=== PATIENT | female | born 1940 | race Caucasian/White ===

== ENCOUNTER 2016-07-27 10:25 | Inpatient (IN) ==
[2016-07-27] MEDS ORDERED: IOPAMIDOL 100 ML BOTTLE IJ ONE (10:26)
[2016-07-27] MEDS ORDERED: 0.9 % SODIUM CHLORIDE 1,000 ML IV ONE ×2 (10:41→14:59)
--- NOTE | 2016-07-27 10:53 | Emergency Department Note ---
Nausea/Vomiting/Diarrhea HPI - General Chief complaint: Nausea/Vomiting/Diarrhea Stated complaint: n/v Time Seen by Provider: 07/27/16 10:50 Source: patient, family Mode of arrival: wheelchair Limitations: no limitations - History of Present Illness HPI Narrative: This patient has had nausea vomiting abdominal pain since about 1 AM. Pain is somewhat diffuse in the abdomen. No diarrhea. Not passing much gas. MD complaint: nausea, vomiting, abdominal pain Onset (ago): hour(s) Description of Vomiting: watery Associated Abdominal Pain: Yes Location of pain: diffuse Severity: moderate - Related Data Home Medications Medication Instructions Recorded Confirmed Fluticasone Furoate [Arnuity 1 puff IH DAILY 07/27/16 07/27/16 Ellipta] Losartan/Hydrochlorothiazide 1 each PO DAILY 07/27/16 07/27/16 [Losartan-Hctz 100-12.5 mg Tab] Rosuvastatin Calcium [Crestor] 2.5 mg PO DAILY 07/27/16 07/27/16 Tiotropium Br/Olodaterol HCl 4 gm IH DAILY 07/27/16 07/27/16 [Stiolto Respimat Inhal [place]] metFORMIN [Glucophage] 500 mg PO DAILY 07/27/16 07/27/16 Allergies Allergy/AdvReac Type Severity Reaction Status Date / Time No Known Drug Allergies Allergy Unverified 07/27/16 10:26 Review of Systems Constitutional: Denies: fever Eyes: Denies: eye pain ENT ED: Denies: ear pain Cardiovascular: Denies: chest pain Respiratory: Denies: cough Gastrointestinal: Reports: abdominal pain, nausea, vomiting. Denies: diarrhea Genitourinary: Denies: urgency Musculoskeletal: Denies: back pain Integumentary: Denies: rash Past Medical History - Past Medical History Medical history: Reports: asthma, COPD, hypertension Physical Exam - General Limitations: no limitations General appearance: alert - Head Head exam: atraumatic - Eye Eye exam: Present: normal appearance - ENT ENT exam: normal exam - Neck Neck exam: Present: normal inspection - Chest Chest inspection: Present: normal inspection - Respiratory Respiratory exam: Present: normal lung sounds bilaterally - Cardiovascular Cardiovascular exam: Present: regular rate, normal rhythm, normal heart sounds - Abdominal Exam Abdominal exam: Present: soft, hypoactive bowel sounds. Absent: distention, tenderness Abdominal tenderness: Present: diffuse, moderate - Neurological Exam Neurological exam: Present: alert - Psychiatric Psychiatric exam: Present: normal affect - Skin Skin exam: Present: warm, dry Course Vital Signs Temperature 97.4 F L 07/27/16 10:26 Pulse Rate 70 07/27/16 10:26 Respiratory Rate 20 07/27/16 10:26 Blood Pressure 144/78 07/27/16 10:26 Pulse Oximetry (%) 95 07/27/16 10:26 Temperature 97.0 F L 07/27/16 10:45 Pulse Rate 67 07/27/16 13:34 Respiratory Rate 22 07/27/16 10:45 Blood Pressure 190/99 07/27/16 13:34 Pulse Oximetry (%) 96 07/27/16 13:34 Nausea/Vomiting/Diarrhea - Lab Data Lab results reviewed: Yes I reviewed the patient's lab results. Result diagrams: 07/27/16 10:51 07/27/16 10:51 Lab Results 07/27/16 07/27/16 07/27/16 Range/Units 10:51 10:51 10:51 WBC 18.1 H (4.5-11.0) K/mcL RBC 5.06 (4.00-5.20) M/mcL Hgb 14.6 (12.0-15.0) g/dL Hct 46.0 (36.0-48.0) % MCV 91.0 (80.0-100.0) fL MCH 28.9 (26.0-34.0) pg MCHC 31.7 (31.0-36.0) g/dL RDW 15.2 H (11.5-14.5) % Plt Count 230 (140-440) K/mcL MPV 9.3 (7.4-10.4) fL Gran % 94.1 H (38.0-78.0) % Lymph % (Auto) 2.5 L (15.5-49.0) % [place] % (Auto) 2.1 (1.0-9.0) % Eos % (Auto) 1.3 (0.0-7.0) % Baso % (Auto) 0 (0.0-2.0) % Gran # 17.1 H (1.8-8.0) K/mcL Lymph # 0.5 L (1.5-4.8) K/mcL [place] # 0.4 (0.1-0.9) K/mcL Eos # 0.2 (0.0-0.7) K/mcL Baso # 0 (0.0-0.3) K/mcL Sodium 139 (133-145) mmol/L Potassium 4.2 (3.3-5.1) mmol/L Chloride 96 (96-108) mmol/L Carbon Dioxide 27 (22-30) mmol/L Anion Gap 16.0 (8-16) BUN 20 (8-23) mg/dl Creatinine 0.8 (0.6-1.1) mg/dl GFR Calculation 73 Glucose 256 H (70-105) mg/dL Calcium 9.5 (8.6-10.4) mg/dl Total Bilirubin 0.2 (0.0-1.0) mg/dL AST 16 (0-37) U/l ALT 17 (0-40) U/l Alkaline Phosphatase 101 (39-117) U/L Total Protein 7.5 (5.9-8.4) gm/dL Albumin 4.4 (3.2-5.2) gm/dL Globulin 3.1 (2.2-3.7) gm/dL Albumin/Globulin Ratio 1.4 (1.0-2.3) Lipase 4450 H (7-60) U/L Urine Color Urine Appearance Urine pH (5.0-9.0) Ur Specific [place] (1.000-1.035) Urine Protein (NEG) mg/dL Urine Glucose (UA) (NEG) mg/dL Urine Ketones (NEG) mg/dL Urine Occult Blood (<0.03) mg/dL Urine Nitrate (NEG) Urine Bilirubin (NEG) mg/dL Urine Urobilinogen (NEG) mg/dL Ur Leukocyte Esterase (NEG) /uL Urine RBC (0-1) /hpf Urine WBC (0-4) /hpf Ur Squamous Epith Cells (0-4) /hpf Urine Bacteria (0) /hpf Hyaline Casts (0-2) /lpf Urine Mucus (0) /hpf Ur Culture Indicated? 07/27/16 Range/Units 11:45 WBC (4.5-11.0) K/mcL RBC (4.00-5.20) M/mcL Hgb (12.0-15.0) g/dL Hct (36.0-48.0) % MCV (80.0-100.0) fL MCH (26.0-34.0) pg MCHC (31.0-36.0) g/dL RDW (11.5-14.5) % Plt Count (140-440) K/mcL MPV (7.4-10.4) fL Gran % (38.0-78.0) % Lymph % (Auto) (15.5-49.0) % [place] % (Auto) (1.0-9.0) % Eos % (Auto) (0.0-7.0) % Baso % (Auto) (0.0-2.0) % Gran # (1.8-8.0) K/mcL Lymph # (1.5-4.8) K/mcL [place] # (0.1-0.9) K/mcL Eos # (0.0-0.7) K/mcL Baso # (0.0-0.3) K/mcL Sodium (133-145) mmol/L Potassium (3.3-5.1) mmol/L Chloride (96-108) mmol/L Carbon Dioxide (22-30) mmol/L Anion Gap (8-16) BUN (8-23) mg/dl Creatinine (0.6-1.1) mg/dl GFR Calculation Glucose (70-105) mg/dL Calcium (8.6-10.4) mg/dl Total Bilirubin (0.0-1.0) mg/dL AST (0-37) U/l ALT (0-40) U/l Alkaline Phosphatase (39-117) U/L Total Protein (5.9-8.4) gm/dL Albumin (3.2-5.2) gm/dL Globulin (2.2-3.7) gm/dL Albumin/Globulin Ratio (1.0-2.3) Lipase (7-60) U/L Urine Color Yellow Urine Appearance Hazy Urine pH 6.0 (5.0-9.0) Ur Specific [place] 1.020 (1.000-1.035) Urine Protein 30 A (NEG) mg/dL Urine Glucose (UA) >=500 A (NEG) mg/dL Urine Ketones 5/tr A (NEG) mg/dL Urine Occult Blood 0.03 A (<0.03) mg/dL Urine Nitrate Neg (NEG) Urine Bilirubin Neg (NEG) mg/dL Urine Urobilinogen Neg (NEG) mg/dL Ur Leukocyte Esterase Neg (NEG) /uL Urine RBC 4 H (0-1) /hpf Urine WBC 2 (0-4) /hpf Ur Squamous Epith Cells 8 H (0-4) /hpf Urine Bacteria Mod A (0) /hpf Hyaline Casts 1 (0-2) /lpf Urine Mucus Many A (0) /hpf Ur Culture Indicated? No Disposition Clinical Impression: Pancreatitis Disposition: Xfer As Inpt ([facility]) Condition: Good Referrals: Rai Calvo MD [Primary Care Provider] - Time of Disposition: 13:39
[2016-07-27] MEDS ORDERED: ONDANSETRON 4 MG/2 ML VIAL IV ONE (10:54)
[2016-07-27] MEDS: HYDROmorphone 2 MG/ML SYRINGE IV PRN ×7 (11:03→23:41)
[2016-07-27 11:31] LABS: Basophils # (Auto) 0 K/mcL (0.0-0.3); Basophils % (Auto) 0 % (0.0-2.0); Eosinophils # (Auto) 0.2 K/mcL (0.0-0.7); Eosinophils % (Auto) 1.3 % (0.0-7.0); Granulocytes % (Auto) 94.1 % (38.0-78.0); Lymphocytes # (Auto) 0.5 K/mcL (1.5-4.8); Lymphocytes % (Auto) 2.5 % (15.5-49.0); Mean Corpuscular HGB Conc 31.7 g/dL (31.0-36.0); Mean Corpuscular Hemoglobin 28.9 pg (26.0-34.0); Monocytes # (Auto) 0.4 K/mcL (0.1-0.9); Monocytes % (Auto) 2.1 % (1.0-9.0); Platelet Count 230 K/mcL (140-440); RBC 5.06 M/mcL (4.00-5.20); Red Cell Distribution Width 15.2 % (11.5-14.5)
[2016-07-27 12:02] LABS: ALT/SGPT 17 U/l (0-40); Albumin 4.4 gm/dL (3.2-5.2); Albumin/Globulin Ratio 1.4 (1.0-2.3); Alkaline Phosphatase 101 U/L (39-117); Blood Urea Nitrogen 20 mg/dl (8-23)
[2016-07-27 12:27] LABS: Appearance,Urine HAZY; Bacteria,Urine MOD /hpf (0); Bilirubin,Urine NEG (NEG); Color,Urine YELLOW; Glucose,Urine (UA) >=500 mg/dL (NEG); Leukocyte Esterase,Urine NEG /uL (NEG); Mucus,Urine MANY /hpf (0); Nitrate,Urine NEG (NEG); Protein,Urine 30 mg/dL (NEG); Urine Blood 0.03 mg/dL (<0.03); Urine Hyaline Cast 1 /lpf (0-2); Urine RBC 4 /hpf (0-1); Urine Squamous Epithelial Cell 8 /hpf (0-4); Urine WBC 2 /hpf (0-4); Urobilinogen,Urine NEG (NEG)
[2016-07-27] MEDS ORDERED: PROMETHAZINE 25 MG/ML VIAL IM ONE (12:45)
[2016-07-27] MEDS ORDERED: PROCHLORPERAZINE 10 MG/2 ML VIAL IV ONE (12:49)
[2016-07-27] MEDS ORDERED: POTASSIUM CHLORIDE 40 MEQ in DEXTROSE 5% IN WATER 500 ML IV PRN (14:36)
[2016-07-27] MEDS ORDERED: HYDROmorphone 2 MG/ML SYRINGE IV PRN (14:36)
[2016-07-27] MEDS ORDERED: traZODone HCL 50 MG TABLET PO PRN (14:36)
[2016-07-27] MEDS ORDERED: IMIPENEM/CILASTATIN SODIUM 1,000 MG in 0.9 % SODIUM CHLORIDE 250 ML IV SCH (14:36)
[2016-07-27] MEDS ORDERED: MAGNESIUM SULFATE 2 GM/50 ML BAG IV PRN (14:36)
[2016-07-27] MEDS ORDERED: ACETAMINOPHEN 325 MG TABLET PO PRN (14:36)
[2016-07-27] MEDS ORDERED: 0.9 % SODIUM CHLORIDE 1,000 ML IV SCH (14:36)
--- NOTE | 2016-07-27 14:48 | Cat Scan Report ---
CLINICAL INFORMATION: Reason for Exam:pancreatitis, normal LFT's alk phos. COMPARISON: None. TECHNIQUE: Following injection of intravenous contrast the patient was scanned during the portal venous phase from the diaphragm through the symphysis pubis. Sagittal and coronal reformats were created.. FINDINGS: There are several bands of discoid atelectasis in both lower lobes. The liver is normal in size but there is fatty infiltration. Spleen is normal in size and homogeneous. There is diffuse inflammation throughout the pancreas. There is stranding of the adjacent fat. The inflammation Peritoneum extends into the root of the mesentery and into the left and right anterior perirenal spaces. No abscess or pseudocyst are present. Pancreatic duct is nondilated and there are no calcifications within the pancreas. The stomach is distended with a large amount of fluid. There is a cyst in the upper portion left kidney measuring 1.3 cm. The kidneys are otherwise normal. The adrenals are normal. There are scattered plaques along the wall of the aorta and iliac arteries. No abnormality seen in the uterus and ovaries are bladder. There is a 2 cm cyst in left ovary. IMPRESSION: Acute pancreatitis The ER was called with results Interpreted and Authenticated by: Yimi Munguia 07/27/16
[2016-07-27] MEDS: ONDANSETRON 4 MG/2 ML VIAL IV PRN ×2 (15:22→20:33)
--- NOTE | 2016-07-27 15:45 | History and Physical Report ---
DATE OF ADMISSION: 07/27/2016 DATE OF ADMISSION: 07/27/2016. REASON FOR ADMISSION: Abdominal pain, nausea. HISTORY OF CHIEF COMPLAINT: The patient is a 75-year-old with known history of diabetes, hypertension along with reactive airway disease who comes to [facility] emergency room with progressive nausea and vomiting along with epigastric abdominal pain that started last night. The patient denies any changes in medication or diet except for recent initiation of metformin for her diabetes approximately a month ago. She denies alcoholism. She denies recent excessive fatty food. She has associated low grade fever along with chills but denies diarrhea, dysuria, bloody stool. Since this morning, she has not been able to eat anything due to intense nausea and felt miserable and subsequently evaluated in the ER where initial workup was significant for a lipase at 4400. Hospitalist Service was consulted. At the time of examination, the patient is fairly distressed, anxious. She was able to provide some of the history. REVIEW OF SYSTEMS: Ten-point review of system was performed and negative except the ones discussed above. PAST MEDICAL HISTORY: 1. Hypertension. 2. Hyperlipidemia. 3. Reactive airway disease. 4. Diabetes mellitus type 2. ALLERGIES: NONE SIGNIFICANT. MEDICATIONS: Metformin 500. Tiotropium. Olodaterol hydrochloride, Respimat, 4 grams inhaled daily. Rosuvastatin 2.5. Losartan/hydrochlorothiazide 1 tab daily. Fluticasone inhaled daily. SOCIAL HISTORY: The patient is to her , Jv, lives in . FULL CODE STATUS. PRIMARY CARE PHYSICIAN: Rai Calvo MD/Javid Velasco MD. FAMILY HISTORY: Significant for mother with obesity, but no history of pancreatitis. PHYSICAL EXAMINATION: GENERAL: The patient is morbidly obese. BMI 37. Height 5 feet 6 inches. VITAL SIGNS: Blood pressure 132/79, respiratory rate 18, temperature 98, pulse 99, sats 96% on 2 liters of oxygen. HEENT: Pupils symmetric. Oral cavity dry. No ear or nose discharge. Head normocephalic and atraumatic. NECK: No lymphadenopathy. HEART: S1, S2, regular rate and rhythm. No murmur. CHEST: Clear to auscultation bilaterally. ABDOMEN: Soft, tender in the epigastric area, but no flank discoloration or periumbilical bruising. LOWER EXTREMITIES: No cyanosis or clubbing. No joint swelling. SKIN: No suspicious lesions. PSYCHIATRIC: Anxious, lethargic, in distress, but no agitation. NEUROLOGIC: Moving all four extremities. LABS AND IMAGING: CT abdomen: Acute pancreatitis. White count 18,000, hemoglobin 14.6, platelets 230, neutrophils 94 percent. Sodium 139, potassium 4.2, creatinine 0.8, BUN 20. LFTs unremarkable. Lipase 4450. UA unremarkable. ASSESSMENT AND PLAN: A 75-year-old admitted with severe pancreatitis. 1. Acute severe pancreatitis. Low [place]'s, however, CHICKEN RANCH score at 15 signifying high risk mortality. The patient will be admitted as inpatient, start a conservative management including nothing by mouth, aggressive crystalloids along with analgesics, antiemetics. Continue close hemodynamic monitoring. 2. Systemic inflammatory response syndrome secondary to acute severe pancreatitis with white count over 18,000. Continue close monitoring. 3. History of hypertension. Hold antihypertensives. 4. History of diabetes mellitus type 2. Continue prandial insulin. 5. Reactive airway disease. Continue bronchodilators. PLAN FOR TODAY: 1. Admit as inpatient. 2. Aggressive crystalloids, antiemetics, and analgesics. 3. Right upper quadrant ultrasound if elevated LFTs. 4. Preexisting medical condition management per guidelines. AA:fredi Job ID: [id number] Doc ID: [id number] Wu Napoles MD
[2016-07-27 15:57] LABS: C-Reactive Protein 2.1 mg/dl (0.0-0.8)
[2016-07-27] MEDS: 0.9 % SODIUM CHLORIDE 1,000 ML IV SCH (16:03)
[2016-07-27] MEDS: IMIPENEM/CILASTATIN SODIUM 500 MG in 0.9 % SODIUM CHLORIDE 100 ML IV SCH ×2 (16:03→20:29)
[2016-07-27] MEDS: 0.9 % SODIUM CHLORIDE 10 ML SYRINGE IV SCH (20:29)
[2016-07-27] MEDS: DOCUSATE SODIUM 100 MG CAPSULE PO SCH (20:29)
[2016-07-27] MEDS: SENNOSIDES/DOCUSATE SODIUM 1 TAB TABLET PO SCH (20:29)
[2016-07-27] MEDS: HEPARIN 5,000 UNIT/ML VIAL SQ SCH (20:32)
[2016-07-27] MEDS: ACETAMINOPHEN 1,000 MG/100 ML BOTTLE IV PRN (23:10)
[2016-07-28] MEDS: IMIPENEM/CILASTATIN SODIUM 500 MG in 0.9 % SODIUM CHLORIDE 100 ML IV SCH ×2 (00:37→06:36)
[2016-07-28] MEDS: HYDROmorphone 2 MG/ML SYRINGE IV PRN ×6 (03:24→21:41)
[2016-07-28] MEDS: 0.9 % SODIUM CHLORIDE 1,000 ML IV SCH ×3 (03:24→15:08)
[2016-07-28] MEDS: ONDANSETRON 4 MG/2 ML VIAL IV PRN ×5 (03:30→19:30)
[2016-07-28] MEDS: 0.9 % SODIUM CHLORIDE 10 ML SYRINGE IV SCH ×3 (05:42→20:17)
[2016-07-28 06:59] LABS: Basophils # (Auto) 0 K/mcL (0.0-0.3); Basophils % (Auto) 0 % (0.0-2.0); Eosinophils # (Auto) 0 K/mcL (0.0-0.7); Eosinophils % (Auto) 0 % (0.0-7.0); Granulocytes % (Auto) 95.9 % (38.0-78.0); Lymphocytes # (Auto) 0.6 K/mcL (1.5-4.8); Lymphocytes % (Auto) 2.4 % (15.5-49.0); Mean Cell Volume 91.5 fL (80.0-100.0); Mean Corpuscular HGB Conc 31.7 g/dL (31.0-36.0); Monocytes # (Auto) 0.4 K/mcL (0.1-0.9); Monocytes % (Auto) 1.7 % (1.0-9.0); Platelet Count 253 K/mcL (140-440); RBC 4.98 M/mcL (4.00-5.20); Red Cell Distribution Width 15.4 % (11.5-14.5)
[2016-07-28 07:14] LABS: ALT/SGPT 12 U/l (0-40); Albumin 3.5 gm/dL (3.2-5.2); Albumin/Globulin Ratio 1.3 (1.0-2.3); Alkaline Phosphatase 67 U/L (39-117); Bilirubin,Direct < 0.2 mg/dL (0.0-0.3); Blood Urea Nitrogen 20 mg/dl (8-23); C-Reactive Protein 17.8 mg/dl (0.0-0.8); Gamma Glutamyl Transpeptidase 24 U/L (5-36); Magnesium 1.2 mg/dL (1.6-2.5); Phosphorous 2.3 mg/dL (2.7-4.5); Uric Acid 4.5 mg/dL (2.5-8.0)
[2016-07-28] MEDS: MULTIVIT,THER IRON,CA,FA & MIN 1 TABLET PO SCH (07:37)
[2016-07-28] MEDS: DOCUSATE SODIUM 100 MG CAPSULE PO SCH ×2 (07:37→20:16)
[2016-07-28] MEDS: PANTOPRAZOLE 40 MG VIAL IV SCH (07:37)
[2016-07-28] MEDS: Fluticasone Furoate [Arnuity Ellipta] Inhaler INH SCH (07:43)
[2016-07-28] MEDS: ACETAMINOPHEN 1,000 MG/100 ML BOTTLE IV PRN ×2 (07:57→22:05)
[2016-07-28] MEDS ORDERED: hydrALAZINE 20 MG/ML VIAL IV PRN (08:11)
[2016-07-28] MEDS: HEPARIN 5,000 UNIT/ML VIAL SQ SCH ×2 (08:28→21:21)
[2016-07-28] MEDS ORDERED: Tiotropium Br/Olodaterol Hcl [Stiolto Respimat] Inhaler INH SCH (09:00)
[2016-07-28] MEDS ORDERED: 0.9 % SODIUM CHLORIDE 1,000 ML IV ONE (09:03)
[2016-07-28] MEDS: PROMETHAZINE 25 MG/ML VIAL IV PRN (09:57)
--- NOTE | 2016-07-28 10:36 | Internal Med Progress Note ---
Medical - PN: Subj Patient information: Note initiated : 07/28/16 at 10:31 am Service Date, if different from initiated Date: [] Patient: Olinda Farris 75 y/o F admitted on 07/27/16 for n/v. Chief Complaint: [] Interval history: 3/- patient admitted with acute pancreatitis. Unclear etiology.History of alcoholism. CT no evidence of CBD dilation or cholelithiasis. patient olmesartan and statin which may be implicated in pancreatitis however has been on it for a while. home meds on hold. initial CRP 2.2. Lipase 4800. White count 18,000. Significant abdominal pain requiring IV opioids. Continue NPO/ antiemetics crystalloids. Admit to medical floor. [place] score 12 mandating inpatient hospitalization. Low Jessica score/CT severity index for acute pancreatitis. Started on Primaxin. await Procalcitonin 3/5- worsening leukocytosis at 26,000 with bandemia. CRP is 17.8. Continue daily serial trending. Enteral tube feeding to start in 24 hours. Discussed with patient and family. Agreeable for [place]. continue crystalloids bolus and maintained 125-150 cc an hour due to extensive third spacing and pancreatic Inflammation. repeat CT scan 72 hours for interval change. patient now needing 3 L oxygen. High-risk development of ARDS . Underlying severe pancreatitis. dC Primaxin in light of normal pro-calcitonin levels. Continue close monitoring. Persistent sirs with tachycardia and tachypnea. continue electrolyte replacement including magnesium and phosphorus. also discussed possible transfer to tertiary Center if clinical deterioration noted. family is appreciative of care. - Constitutional Vitals: Vital Signs Temp Pulse Resp BP Pulse Ox 98.1 F 94 H 16 119/77 94 07/28/16 08:42 07/28/16 04:00 07/28/16 08:42 07/28/16 08:42 07/28/16 08:42 Period Temp Pulse Resp BP Sys/Johnson Pulse Ox Last 24 Hr 98.0 F-98.9 F 18-103 16-20 114-173/72-97 92-94 Intake and Output 07/27/16 07/28/16 07/28/16 21:59 05:59 13:59 Intake Total 1200 / 1200 1200 / 1200 100 / 100 Output Total 100 / 100 300 / 300 300 / 300 Balance 1100 / 1100 900 / 900 -200 / -200 Weight 231 lb Intake & Output: Intake & Output 07/27/16 07/28/16 07/28/16 21:59 05:59 13:59 Intake Total 1200 / 1200 1200 / 1200 100 / 100 Output Total 100 / 100 300 / 300 300 / 300 Balance 1100 / 1100 900 / 900 -200 / -200 Weight 231 lb Intake: IV 1200 / 1200 1200 / 1200 100 / 100 Sodium Chloride 0.9% 1, 1000 / 1000 1000 / 1000 000 ml @ 125 mls/hr IV . Q8H ROLAN Rx#:[id number] Sodium Chloride 0.9% 100 200 / 200 100 / 100 ml @ 100 mls/hr IV Q6 ROLAN with Primaxin 500 mg Rx# :[id number] Output: Void Amount 100 / 100 300 / 300 300 / 300 Other: # Voids 1 General appearance: moderate distress (abdominal pain), obese Exam: alert oriented distended abdomen sluggish bowel sounds Nonlabored breathing anxious Medical - PN: Obj Da - Labs CBC & Chem 7: 07/28/16 05:50 07/28/16 05:50 Labs: Abnormal Lab Results 07/28/16 07/28/16 07/27/16 05:50 05:50 14:49 WBC 26.2 H RDW 15.4 H Gran % 95.9 H Lymph % (Auto) 2.4 L Gran # 25.1 H Lymph # 0.6 L Carbon Dioxide 21 L Glucose 181 H Calcium 6.5 L Phosphorus 2.3 L Magnesium 1.2 L Lactate Dehydrogenase 350 H C-Reactive Protein 17.8 H 2.1 H Meds: Medications Acetaminophen (Tylenol) 650 mg PO Q4-6HP PRN PRN Reason: PAIN/FEVER > 101 Docusate Sodium (Colace) 100 mg PO BID [facility] Last Admin: 07/28/16 07:37 Dose: Not Given Heparin Sodium (Porcine) (Heparin) 5,000 unit SQ Q12 ROLAN Last Admin: 07/28/16 08:28 Dose: 5,000 unit Hydralazine HCl (Apresoline) 10 mg IV Q4-6HP PRN PRN Reason: Hypertension Hydromorphone HCl (Dilaudid) 0.5 - 1 mg IV Q2HP PRN PRN Reason: Pain Last Admin: 07/28/16 05:38 Dose: 0.5 mg Potassium Chloride 40 meq/ (Dextrose) 520 mls @ 130 mls/hr IV UD PRN PRN Reason: K+ = or < 3.5 Magnesium Sulfate (Magnesium Sulfate) 2 gm in 50 mls @ 50 mls/hr IV UD PRN PRN Reason: MG = or < 1.7 Sodium Chloride (Sodium Chloride 0.9%) 1,000 mls @ 125 mls/hr IV .Q8H [facility] Stop: 07/28/16 14:35 Last Admin: 07/28/16 03:24 Dose: 125 mls/hr Acetaminophen (Ofirmev) 1,000 mg in 100 mls @ 200 mls/hr IV Q6HP PRN PRN Reason: PAIN/FEVER > 101 Last Infusion: 07/28/16 09:54 Dose: Infused Imipenem/Cilastatin Sodium 500 (mg/ Sodium Chloride) 100 mls @ 100 mls/hr IV Q6 [facility] Last Admin: 07/28/16 06:36 Dose: 100 mls/hr Iron Carb/Multivit/Assistant Strength Coach/Folic Acid (Multivitamin W/Minerals) 1 tab PO DAILY [facility] Last Admin: 07/28/16 07:37 Dose: Not Given Ondansetron HCl (Zofran) 4 mg IV Q4-6HP PRN PRN Reason: Nausea And Vomiting Last Admin: 07/28/16 08:28 Dose: 4 mg Pantoprazole Sodium (Protonix) 40 mg IV QAMAC [facility] Last Admin: 07/28/16 07:37 Dose: 40 mg Tiotropium Br/Olodaterol Hcl [ Stiolto Respimat] Inhaler 1 dose INH DAILY [facility] Last Admin: 07/28/16 07:44 Dose: 1 dose Fluticasone Furoate [Arnuity Ellipta] Inhaler 1 dose INH DAILY [facility] Last Admin: 07/28/16 07:43 Dose: 1 dose Promethazine HCl (Phenergan) 6.25 - 12.5 mg IV Q4HP PRN PRN Reason: Nausea And Vomiting Last Admin: 07/28/16 09:57 Dose: 6.25 mg Senna/Docusate Sodium (Senna Plus Tablet) 1 tab PO HS [facility] Last Admin: 07/27/16 20:29 Dose: Not Given Sodium Chloride (Saline Flush) 10 ml IV Q8 [facility] Last Admin: 07/28/16 05:42 Dose: Not Given Trazodone HCl (Desyrel) 50 mg PO HSP PRN PRN Reason: Insomnia Medical - PN: A/P - Time Spent With Patient Total time spent is greater than 50% in coordination of care (as documented) at patient's floor/unit and/or counseling patient: 25 - 35 minutes (1) Acute pancreatitis without infection or necrosis Status: Acute Assessment and plan: * Acute pancreatitis possible [id number] serial CRP trending. Low CT severity index on admission. unclear etiology. Possible drug-induced from ARB/statin. Home meds on hold. Conservative management on crystalloids/ antiemetics/analgesics. Initiate enteral feeding in 24 hours * systemic response syndrome with white count 26,000 and bandemia-Secondary to acute severe pancreatitis. pro-calcitonin level less than 0.1 ndicative against infectious process. DC imipenem * Abdominal pain managed on opioids * History of hypertension use as needed hydralazine- hold ARB/statin(possible drug-induced pancreatitis) * low magnesium and phosphorus-continue replacement * DVT prophylaxis on heparin Plan * DC antibiotics * aggressive crystalloids antiemetics and analgesics * nitiate enteral feeding in a.m. * aggressive pain management * chest imaging * as needed hydralazine * Hold home meds in light of possible drug-induced pancreatitis Current Visit: Yes Medical - PN: Qual - VTE Deep Vein Thrombosis/Pulmonary Embolism Present on Admission: No
[2016-07-28] MEDS ORDERED: POTASSIUM PHOSPHATE 40 MEQ in DEXTROSE 5% IN WATER 500 ML IV ONE (11:00)
[2016-07-28] MEDS ORDERED: LORazepam 2 MG/ML VIAL IV PRN (15:05)
[2016-07-28] MEDS: Tiotropium Br/Olodaterol Hcl [Stiolto Respimat] Inhaler INH SCH ×2 (18:52→20:17)
[2016-07-28] MEDS: SENNOSIDES/DOCUSATE SODIUM 1 TAB TABLET PO SCH (20:16)
[2016-07-29] MEDS: 0.9 % SODIUM CHLORIDE 1,000 ML IV SCH (00:40)
[2016-07-29] MEDS: ONDANSETRON 4 MG/2 ML VIAL IV PRN ×4 (02:16→17:11)
[2016-07-29] MEDS: HYDROmorphone 2 MG/ML SYRINGE IV PRN ×6 (02:43→22:34)
[2016-07-29] MEDS: 0.9 % SODIUM CHLORIDE 10 ML SYRINGE IV SCH ×4 (04:49→20:38)
[2016-07-29] MEDS: PROMETHAZINE 25 MG/ML VIAL IV PRN ×3 (04:57→20:36)
[2016-07-29 06:53] LABS: Mean Cell Volume 91.1 fL (80.0-100.0); Mean Corpuscular HGB Conc 32.3 g/dL (31.0-36.0); Mean Corpuscular Hemoglobin 29.5 pg (26.0-34.0); Platelet Count 195 K/mcL (140-440); RBC 4.24 M/mcL (4.00-5.20); Red Cell Distribution Width 15.6 % (11.5-14.5)
[2016-07-29] MEDS: PANTOPRAZOLE 40 MG VIAL IV SCH (07:12)
[2016-07-29] MEDS: ACETAMINOPHEN 1,000 MG/100 ML BOTTLE IV PRN (07:23)
[2016-07-29 07:43] LABS: ALT/SGPT 11 U/l (0-40); Albumin 2.7 gm/dL (3.2-5.2); Alkaline Phosphatase 107 U/L (39-117); Bilirubin,Direct 0.2 mg/dL (0.0-0.3); Blood Urea Nitrogen 33 mg/dl (8-23); Gamma Glutamyl Transpeptidase 22 U/L (5-36); Magnesium 1.8 mg/dL (1.6-2.5); Phosphorous 3.2 mg/dL (2.7-4.5); Uric Acid 5.6 mg/dL (2.5-8.0)
[2016-07-29 08:51] LABS: Band Neutrophils % 42 % (0-10); Lymphocytes % 3 % (15-49); Platelet Estimate NORMAL (NORMAL); RBC Morphology NORMAL (NORMAL); Segmented Neutrophils % 55 % (38-78)
[2016-07-29] MEDS ORDERED: hydrALAZINE 20 MG/ML VIAL IV PRN (09:05)
[2016-07-29] MEDS ORDERED: ACETAMINOPHEN 325 MG TABLET PO PRN (09:05)
[2016-07-29] MEDS ORDERED: MAGNESIUM SULFATE 2 GM/50 ML BAG IV PRN (09:05)
[2016-07-29] MEDS ORDERED: POTASSIUM CHLORIDE 40 MEQ in DEXTROSE 5% IN WATER 500 ML IV PRN (09:05)
[2016-07-29] MEDS ORDERED: CALCIUM GLUCONATE 4.65 MEQ/10 ML VIAL IV ONE (09:05)
--- NOTE | 2016-07-29 09:25 | XRay Report ---
CLINICAL INFORMATION: Hypoxia COMPARISON: 07/16/2012 FINDINGS: The heart is borderline enlarged. Mediastinum and pulmonary vessels are normal. Mall infiltrate or atelectasis has developed in the left base underlying scarring. The remaining lungs are clear. No definite effusion. IMPRESSION: Small atelectasis or infiltrate developing in the left base with underlying chronic scarring. Interpreted and Authenticated by: Lee Sharma 07/29/16
[2016-07-29] MEDS ORDERED: CALCIUM GLUCONATE 4.65 MEQ in DEXTROSE 5% IN WATER 50 ML IV ONE ×2 (09:30→16:08)
[2016-07-29] MEDS: Fluticasone Furoate [Arnuity Ellipta] Inhaler INH SCH (10:00)
[2016-07-29] MEDS: Tiotropium Br/Olodaterol Hcl [Stiolto Respimat] Inhaler INH SCH ×2 (10:00→20:37)
[2016-07-29 10:20] LABS: Ionized Calcium 0.72 mmol/L (1.16-1.32)
[2016-07-29 10:37] LABS: Parathyroid Hormone Intact 366.1 pg/ml (15-65)
[2016-07-29 10:38] LABS: Amylase 1269 U/L (28-100); Blood Urea Nitrogen 36 mg/dl (8-23); HDL Cholesterol 20 mg/dl (>40); LDL Cholesterol,Calculated 60 mg/dl (SEE CHART)
[2016-07-29 10:42] LABS: Lipase 620 U/L (7-60)
[2016-07-29 10:49] LABS: Vitamin D 25 Hydroxy 8.94 ng/mL (>=30)
[2016-07-29] MEDS: DEXTROSE 5%-1/2NS W/40MEQ KCL 1,000 ML IV SCH (11:00)
[2016-07-29] MEDS: DOCUSATE SODIUM 100 MG CAPSULE PO SCH ×2 (11:28→20:37)
[2016-07-29] MEDS: MULTIVIT,THER IRON,CA,FA & MIN 1 TABLET PO SCH (11:28)
[2016-07-29 11:47] LABS: Creatinine,Urine Random 126.3 mg/dl
[2016-07-29 11:54] LABS: Appearance,Urine CLOUDY; Bacteria,Urine 0 /hpf (0); Bilirubin,Urine NEG (NEG); Color,Urine AMBER; Glucose,Urine (UA) >=500 mg/dL (NEG); Leukocyte Esterase,Urine NEG /uL (NEG); Mucus,Urine FEW /hpf (0); Nitrate,Urine NEG (NEG); Protein,Urine 30 mg/dL (NEG); Specific Gravity,Urine 1.018 (1.000-1.035); Urine Amorphous Crystals FEW /hpf (0); Urine Blood NEG mg/dL (<0.03); Urine Granular Cast 1 /lpf (0); Urine Hyaline Cast 1 /lpf (0-2); Urine RBC 1 /hpf (0-1); Urine Squamous Epithelial Cell 0 /hpf (0-4); Urine WBC 1 /hpf (0-4); Urobilinogen,Urine NEG (NEG)
--- NOTE | 2016-07-29 12:28 | Internal Med Progress Note ---
Medical - PN: Subj Patient information: Note initiated : 07/29/16 at 12:25 pm Service Date, if different from initiated Date: [] Patient: Olinda Farris 75 y/o F admitted on 07/27/16 for N/V, Severe Pancreatitis. Chief Complaint: [] Interval history: 3/4- patient admitted with acute pancreatitis. Unclear etiology.History of alcoholism. CT no evidence of CBD dilation or cholelithiasis. patient olmesartan and statin which may be implicated in pancreatitis however has been on it for a while. home meds on hold. initial CRP 2.2. Lipase 4800. White count 18,000. Significant abdominal pain requiring IV opioids. Continue NPO/ antiemetics crystalloids. Admit to medical floor. [place] score 12 mandating inpatient hospitalization. Low [place] score/CT severity index for acute pancreatitis. Started on Primaxin. await Procalcitonin 3/5- worsening leukocytosis at 26,000 with bandemia. CRP is 17.8. Continue daily serial trending. Enteral tube feeding to start in 24 hours. Discussed with patient and family. Agreeable for Dobbhoff. continue crystalloids bolus and maintained 125-150 cc an hour due to extensive third spacing and pancreatic Inflammation. repeat CT scan 72 hours for interval change. patient now needing 3 L oxygen. High-risk development of ARDS . Underlying severe pancreatitis. dC Primaxin in light of normal pro-calcitonin levels. Continue close monitoring. Persistent sirs with tachycardia and tachypnea. continue electrolyte replacement including magnesium and phosphorus. also discussed possible transfer to tertiary Center if clinical deterioration noted. family is appreciative of care. 3/6- Patients still has abdominal pain, no bm passed, no gas, feels that abdomen is distended. No nausea or vomiting. pain control is reported as adequate. WBC stable, CRP is increasing, Ca low, mg ok, patients has new onset renal failure. Ransons score at 48 hrs is 6 indicating 40% mortality. Discussed same with the patient and advised patient needs closer monitoring in PCU status. She is still requiring oxygen and X ray shows possibile pna vs atelectasis. Given neg procalcitonin recently hold off on antibiotics. Discussed with te family that if patient condition worsens will have to x toi to higher center. Pertinent ROS: Denies headache, dizziness Denies chest pain, palpitations Denies cough or shortness of breath present abdominal pain, denies nausea or vomiting. Additional PMFSH (Level 3 Only): h/o HLD, intermittent compliance with medication no h/o renal disease. - Constitutional Vitals: Vital Signs Temp Pulse Resp BP Pulse Ox 97.5 F L 97 H 20 109/63 98 07/29/16 12:00 07/29/16 07:26 07/29/16 12:00 07/29/16 12:00 07/29/16 12:00 Period Temp Pulse Resp BP Sys/Johnson Pulse Ox Last 24 Hr 97.5 F-98.7 F 94-104 18-24 109-121/63-74 92-98 Intake and Output 07/28/16 07/29/16 07/29/16 21:59 05:59 13:59 Intake Total 1000 / 1000 310 / 310 Output Total 200 / 200 75 / 75 60 / 60 Balance -200 / -200 925 / 925 250 / 250 Weight 232 lb 8 oz Intake & Output: Intake & Output 07/28/16 07/29/16 07/29/16 21:59 05:59 13:59 Intake Total 1000 / 1000 310 / 310 Output Total 200 / 200 75 / 75 60 / 60 Balance -200 / -200 925 / 925 250 / 250 Weight 232 lb 8 oz Intake: IV 1000 / 1000 310 / 310 Sodium Chloride 0.9% 1, 1000 / 1000 000 ml @ 125 mls/hr IV . Q8H [facility] Rx#:[id number] Dextrose 5% in Water 50 60 / 60 ml @ 100 mls/hr IV ONCE ONE with Calcium Gluconate 4.65 Meq Rx#: [id number] Output: Void Amount 200 / 200 75 / 75 60 / 60 Exam: Constitutional; Afebrile, cooperative, alert, not in distress. Eyes- No icterus, Pupils equal, reactive, No periorbital swelling Ears- Ext ear normal, hearing normal to conversation. Neck- Midline trachea, supple Respiratory system: Air Entry equal on both sides, No crackles or wheezing, no rhonchi. CVS- Rate rhythm regular, S1,S2 heard, no gallop, no rub. Abdomen- distended, diffusely tender predominantly in the epigastric region, decreased BS, SHEAR SETTER- AOOx3, moving all extremities, no focal deficit noted. Medical - PN: Obj Da - Labs CBC & Chem 7: 07/29/16 05:00 07/29/16 09:16 Labs: Abnormal Lab Results 07/29/16 07/29/16 07/29/16 10:57 10:57 09:16 WBC RDW Gran % Lymph % (Auto) Gran # Lymph # Band Neutrophils % Lymphocytes % Carbon Dioxide BUN Creatinine Glucose Calcium Ionized Calcium Julien Phosphorus Magnesium Lactate Dehydrogenase C-Reactive Protein Total Protein Albumin HDL Cholesterol Amylase Lipase 25-OH Vitamin D Total 8.94 L PTH Intact 366.1 H Urine Protein 30 A Urine Glucose (UA) >=500 A Amorphous Crystals Few A Granular Casts 1 H U [place] Prot/Creat Ratio 0.65 H 07/29/16 07/29/16 07/29/16 09:16 05:00 05:00 WBC 23.1 H RDW 15.6 H Gran % Lymph % (Auto) Gran # Lymph # Band Neutrophils % 42 H Lymphocytes % 3 L Carbon Dioxide 20 L 19 L BUN 36 H 33 H Creatinine 2.2 H 2.3 H Glucose 170 H 163 H Calcium 5.5 L* Ionized Calcium Julien 0.72 L* Phosphorus Magnesium Lactate Dehydrogenase 661 H C-Reactive Protein 41.0 H Total Protein 5.5 L Albumin 2.7 L HDL Cholesterol 20 L Amylase 1269 H Lipase 620 H 25-OH Vitamin D Total PTH Intact Urine Protein Urine Glucose (UA) Amorphous Crystals Granular Casts U [place] Prot/Creat Ratio 07/28/16 07/28/16 07/27/16 05:50 05:50 14:49 WBC 26.2 H RDW 15.4 H Gran % 95.9 H Lymph % (Auto) 2.4 L Gran # 25.1 H Lymph # 0.6 L Band Neutrophils % Lymphocytes % Carbon Dioxide 21 L BUN Creatinine Glucose 181 H Calcium 6.5 L Ionized Calcium Julien Phosphorus 2.3 L Magnesium 1.2 L Lactate Dehydrogenase 350 H C-Reactive Protein 17.8 H 2.1 H Total Protein Albumin HDL Cholesterol Amylase Lipase 25-OH Vitamin D Total PTH Intact Urine Protein Urine Glucose (UA) Amorphous Crystals Granular Casts U [place] Prot/Creat Ratio Meds: Medications Acetaminophen (Tylenol) 650 mg PO Q4-6HP PRN PRN Reason: PAIN/FEVER > 101 Docusate Sodium (Colace) 100 mg PO BID [facility] Heparin Sodium (Porcine) (Heparin) 5,000 unit SQ Q12 [facility] Hydralazine HCl (Apresoline) 10 mg IV Q8HP PRN PRN Reason: Hypertension Hydromorphone HCl (Dilaudid) 0.5 - 1 mg IV Q2HP PRN PRN Reason: Pain Last Admin: 07/29/16 10:01 Dose: 1 mg Potassium Chloride 40 meq/ (Dextrose) 520 mls @ 130 mls/hr IV UD PRN PRN Reason: K+ = or < 3.5 Magnesium Sulfate (Magnesium Sulfate) 2 gm in 50 mls @ 50 mls/hr IV UD PRN PRN Reason: MG = or < 1.7 Acetaminophen (Ofirmev) 1,000 mg in 100 mls @ 200 mls/hr IV Q6HP PRN PRN Reason: PAIN/FEVER > 101 Potassium Chloride/Dextrose/Sod Cl (Dextrose 5%-1/2ns W/40meq Kcl) 1,000 mls @ 75 mls/hr IV .[id number] [facility] Last Admin: 07/29/16 11:00 Dose: 75 mls/hr Iron Carb/Multivit/[place]/Folic Acid (Multivitamin W/Minerals) 1 tab PO DAILY [facility] Lorazepam (Ativan) 0.5 mg IV Q6HP PRN PRN Reason: Spasms Ondansetron HCl (Zofran) 4 mg IV Q4-6HP PRN PRN Reason: Nausea And Vomiting Last Admin: 07/29/16 10:00 Dose: 4 mg Pantoprazole Sodium (Protonix) 40 mg IV QAMAC [facility] Fluticasone Furoate [Arnuity Ellipta] Inhaler 1 dose INH DAILY [facility] Tiotropium Br/Olodaterol Hcl [ Stiolto Respimat] Inhaler 1 dose INH BID [facility] Promethazine HCl (Phenergan) 6.25 - 12.5 mg IV Q4HP PRN PRN Reason: Nausea And Vomiting Senna/Docusate Sodium (Senna Plus Tablet) 1 tab PO HS [facility] Sodium Chloride (Saline Flush) 10 ml IV Q8 [facility] Last Admin: 07/29/16 09:10 Dose: 10 ml Trazodone HCl (Desyrel) 50 mg PO HSP PRN PRN Reason: Insomnia Medical - PN: A/P - Time Spent With Patient Total time spent is greater than 50% in coordination of care (as documented) at patient's floor/unit and/or counseling patient: (1) Pancreatitis Status: Acute Current Visit: Yes - Narrative A/P Narrative: Severe pancreatitis- NPO status, IV fluids, pain management, etiology uncertain , lipid panel neg, non alcoholic, no abnl lft and CT neg for gall stones, its possible this is medication related, likely hctz vs losartan. patient Jessica score at 48 hrs is 6, indicating 40% mortality, discussed same with patient and family, presently close monitoring. get USG abdomen Acute renal failure- Creat jumped up to 2.3 this AM, on IV fluids, recent use of NSAIDs/ IV contrast for CT noted. The patient also has severe pancreatitis. therefore this is multifactorial in etiology , still making urine, Continue IV fluids, Iqbal to monitor urine output closely, USG abdomen, Acute hypoxic resp failure- On 3 L oxygen, high risk for ARDS< monitor closely. SIRS- Due to pancreatitis, imipenum stopped due to normal / low pro calcitonin. Acute hypocalcemia- mg ok, eleanor gluconate given PTH high, vit d level low, unable to tolerate po at this time, will need high doses of Vit D once able to tolerate po well. Monitor on tele, recheck labs this afternoon. Pre DM- On metformin, hold for now. HTN, hold bp meds for now. Diet - NPO for now, plan to get X ray guided Naso jejunal tube to start feeding if possible. DVT hep sq. condition critical Prognosis guarded. Medical - PN: Qual - VTE Deep Vein Thrombosis/Pulmonary Embolism Present on Admission: No
--- NOTE | 2016-07-29 14:35 | Ultrasound Report ---
CLINICAL INFORMATION: Pancreatitis and renal failure COMPARISON: Abdomen and pelvic CT from three weeks prior: 07/27/2016. FINDINGS: Liver is mildly enlarged with a vertical dimension 21 cm at mid clavicular line. It is is hyperechoic compatible with fatty change - also seen on CT. no focal hepatic lesions. Gallbladder and bile ducts are normal in - the CBD is 4 mm. The spleen and IVC are unremarkable. Pancreas and aorta cannot be identified due to body habitus and bowel gas. Both kidneys are normal in size, but mildly hyperechoic compatible with medical renal disease. The right is 13 x 6 cm and the left is 12 x 5 cm. No focal renal lesions. Small of ascites appreciated. IMPRESSION: 1. Hyperechoic kidneys compatible with medical renal disease. 2. Mild hepatomegaly with diffuse hyperechogenicity compatible with mild fatty change also noted a recent CT 3. Small amount of ascites 4. Due to patient body habitus and bowel gas, the aorta and pancreas cannot be visualized Interpreted and Authenticated by: Lee Sharma 07/29/16
[2016-07-29] MEDS ORDERED: DIATRIZOATE MEGLU/DIATRIZO SOD 30 ML BOTTLE PO ONE (14:37)
[2016-07-29] MEDS ORDERED: LIDOCAINE JEL 2% 1 TUBE 30GM TOPICAL ONE (14:37)
--- NOTE | 2016-07-29 15:06 | XRay Report ---
CLINICAL INFORMATION: Feeding tube placement under fluoroscopy TECHNIQUE: The left ureter was topically anesthetized with viscous lidocaine and Cetacaine spray was used to topically anesthetized oropharynx. The tube was placed through the left nares, esophagus and stomach through the pyloric channel into the descending duodenum. Less than 10 cc of water-soluble contrast was injected through the tube confirming the location of the tube tip. Patient tolerated procedure well. The tube was secured with tape to the nose. IMPRESSION: Successful placement of nasoenteric feeding tube tip of the descending duodenum. The tube could not be advanced further but should be adequate for use. Interpreted and Authenticated by: Lee Sharma 07/29/16
[2016-07-29 15:57] LABS: ALT/SGPT 10 U/l (0-40); Albumin 2.7 gm/dL (3.2-5.2); Albumin/Globulin Ratio 0.9 (1.0-2.3); Alkaline Phosphatase 55 U/L (39-117); Bilirubin,Direct 0.2 mg/dL (0.0-0.3); Blood Urea Nitrogen 37 mg/dl (8-23); Gamma Glutamyl Transpeptidase 20 U/L (5-36); Magnesium 1.7 mg/dL (1.6-2.5); Phosphorous 3.1 mg/dL (2.7-4.5); Uric Acid 5.9 mg/dL (2.5-8.0)
[2016-07-29] MEDS ORDERED: MAGNESIUM SULFATE 2 GM/50 ML BAG IV ONE (16:08)
--- NOTE | 2016-07-29 18:41 | XRay Report ---
CLINICAL INFORMATION: Abdominal pain COMPARISON: None. FINDINGS: The tube tip overlies the descending duodenum. Stool gas pattern is unremarkable. No gross free air, soft tissue mass or pathologic calcification. Minor atelectasis noted in the left base IMPRESSION: No acute disease. Feeding tube tip overlies the descending duodenum. Interpreted and Authenticated by: Lee Sharma 07/29/16
[2016-07-29] MEDS: HEPARIN 5,000 UNIT/ML VIAL SQ SCH (20:27)
[2016-07-29] MEDS: SENNOSIDES/DOCUSATE SODIUM 1 TAB TABLET PO SCH (20:37)
[2016-07-29] MEDS ORDERED: traZODone HCL 50 MG TABLET PO PRN (21:00)
[2016-07-29] MEDS: LORazepam 2 MG/ML VIAL IV PRN (22:35)
[2016-07-30] MEDS: DEXTROSE 5%-1/2NS W/40MEQ KCL 1,000 ML IV SCH ×3 (02:09→17:38)
[2016-07-30] MEDS: HYDROmorphone 2 MG/ML SYRINGE IV PRN ×6 (03:36→19:40)
[2016-07-30] MEDS: LORazepam 2 MG/ML VIAL IV PRN ×2 (03:36→19:39)
[2016-07-30 05:33] LABS: Mean Cell Volume 90.5 fL (80.0-100.0); Mean Corpuscular HGB Conc 32.3 g/dL (31.0-36.0); Mean Corpuscular Hemoglobin 29.2 pg (26.0-34.0); Platelet Count 180 K/mcL (140-440); RBC 3.81 M/mcL (4.00-5.20); Red Cell Distribution Width 15.4 % (11.5-14.5)
[2016-07-30 06:07] LABS: ALT/SGPT 10 U/l (0-40); Albumin 2.6 gm/dL (3.2-5.2); Albumin/Globulin Ratio 1.4 (1.0-2.3); Alkaline Phosphatase 64 U/L (39-117); Bilirubin,Direct 0.3 mg/dL (0.0-0.3); Blood Urea Nitrogen 35 mg/dl (8-23); Gamma Glutamyl Transpeptidase 19 U/L (5-36); Magnesium 2.2 mg/dL (1.6-2.5); Phosphorous 2.6 mg/dL (2.7-4.5)
[2016-07-30 06:27] LABS: C-Reactive Protein 42.8 mg/dl (0.0-0.8)
[2016-07-30] MEDS: HEPARIN 5,000 UNIT/ML VIAL SQ SCH ×3 (06:35→22:34)
[2016-07-30] MEDS ORDERED: CALCIUM GLUCONATE 4.65 MEQ/10 ML VIAL IV ONE (06:59)
[2016-07-30] MEDS: 0.9 % SODIUM CHLORIDE 10 ML SYRINGE IV SCH ×3 (07:05→22:10)
[2016-07-30 07:29] LABS: Band Neutrophils % 26 % (0-10); Lymphocytes % 3 % (15-49); Monocytes % (Manual) 6 % (1-9); Platelet Estimate NORMAL (NORMAL); RBC Morphology ABNORM (NORMAL); Segmented Neutrophils % 65 % (38-78); Toxic Granulation 1+ (NONE SEEN)
[2016-07-30] MEDS ORDERED: CALCIUM GLUCONATE 9.3 MEQ in DEXTROSE 5% IN WATER 50 ML IV ONE (08:00)
[2016-07-30] MEDS: PANTOPRAZOLE 40 MG VIAL IV SCH (08:39)
[2016-07-30] MEDS: DOCUSATE SODIUM 100 MG CAPSULE PO SCH ×2 (08:52→22:10)
[2016-07-30] MEDS: MULTIVIT,THER IRON,CA,FA & MIN 1 TABLET PO SCH (08:52)
[2016-07-30] MEDS ORDERED: BISACODYL 10 MG SUPP.RECT PR ONE (09:18)
[2016-07-30] MEDS: Tiotropium Br/Olodaterol Hcl [Stiolto Respimat] Inhaler INH SCH ×2 (09:25→22:36)
[2016-07-30] MEDS: Fluticasone Furoate [Arnuity Ellipta] Inhaler INH SCH (09:25)
--- NOTE | 2016-07-30 12:53 | Internal Med Progress Note ---
Medical - PN: Subj Patient information: Note initiated : 07/30/16 at 12:48 pm Service Date, if different from initiated Date: [] Patient: Olinda Farris 75 y/o F admitted on 07/27/16 for N/V, Severe Pancreatitis. Chief Complaint: [] Interval history: 3/4- patient admitted with acute pancreatitis. Unclear etiology.History of alcoholism. CT no evidence of CBD dilation or cholelithiasis. patient olmesartan and statin which may be implicated in pancreatitis however has been on it for a while. home meds on hold. initial CRP 2.2. Lipase 4800. White count 18,000. Significant abdominal pain requiring IV opioids. Continue NPO/ antiemetics crystalloids. Admit to medical floor. [place] score 12 mandating inpatient hospitalization. Low [place] score/CT severity index for acute pancreatitis. Started on Primaxin. await Procalcitonin 3/5- worsening leukocytosis at 26,000 with bandemia. CRP is 17.8. Continue daily serial trending. Enteral tube feeding to start in 24 hours. Discussed with patient and family. Agreeable for Dobbhoff. continue crystalloids bolus and maintained 125-150 cc an hour due to extensive third spacing and pancreatic Inflammation. repeat CT scan 72 hours for interval change. patient now needing 3 L oxygen. High-risk development of ARDS . Underlying severe pancreatitis. dC Primaxin in light of normal pro-calcitonin levels. Continue close monitoring. Persistent sirs with tachycardia and tachypnea. continue electrolyte replacement including magnesium and phosphorus. also discussed possible transfer to tertiary Center if clinical deterioration noted. family is appreciative of care. 3/6- Patients still has abdominal pain, no bm passed, no gas, feels that abdomen is distended. No nausea or vomiting. pain control is reported as adequate. WBC stable, CRP is increasing, Ca low, mg ok, patients has new onset renal failure. Ransons score at 48 hrs is 6 indicating 40% mortality. Discussed same with the patient and advised patient needs closer monitoring in PCU status. She is still requiring oxygen and X ray shows possibile pna vs atelectasis. Given neg procalcitonin recently hold off on antibiotics. Discussed with te family that if patient condition worsens will have to x toi to higher center. 3/7 pt seen examined, in chair comfortable, denies any acute overnight events, no BM but did pass some gas USG reviewed, X ray abdomen reviewed (neg for obstruction) , Abdomen still more distended today than yesterday as per nursing staff. Trial of rectal suppository CT abdomen and pelvis without contrast today, discussed same with radiologist, can use water to help delinate bowels to help evaluate pancreas. Feeding tube placed, but given no BM yest, will hold off on starting same. Hypocalcemia still present, s/p calcium supplements Will give some VIt D solution via Feeding tube today to help build reserves. CRP still high, wbc improving, creat improving, pt making urine, renal failure seems pre renal Pertinent ROS: Denies headache, dizziness Denies chest pain, palpitations Denies cough or shortness of breath present abdominal pain,denies nausea or vomiting. present constipation. - Constitutional Vitals: Vital Signs Temp Pulse Resp BP Pulse Ox 98.9 F 91 H 20 122/72 95 07/30/16 12:00 07/30/16 11:00 07/30/16 12:00 07/30/16 12:00 07/30/16 12:00 Period Temp Pulse Resp BP Sys/Johnson Pulse Ox Last 24 Hr 97.8 F-98.9 F 91-110 16-20 91-144/59-119 91-98 Intake and Output 07/29/16 07/30/16 07/30/16 21:59 05:59 13:59 Intake Total 95 / 95 1000 / 1000 Output Total 300 / 300 650 / 650 Balance -205 / -205 350 / 350 Weight 238 lb 12.8 oz Intake & Output: Intake & Output 07/29/16 07/30/16 07/30/16 21:59 05:59 13:59 Intake Total 95 / 95 1000 / 1000 Output Total 300 / 300 650 / 650 Balance -205 / -205 350 / 350 Weight 238 lb 12.8 oz Intake: IV 95 / 95 1000 / 1000 Dextrose 5%-1/2Ns W/40Meq 1000 / 1000 KCl 1,000 ml @ 75 mls/hr IV .[id number] [facility] Rx#: [id number] Output: Urine Catheter Amount 300 / 300 650 / 650 Other: # Bowel Movements 0 Exam: Constitutional; Afebrile, cooperative, alert, not in distress. Eyes- No icterus, Pupils equal, reactive, No periorbital swelling Ears- Ext ear normal, hearing normal to conversation. Neck- Midline trachea, supple Respiratory system: Air Entry equal on both sides, No crackles or wheezing, no rhonchi. CVS- Rate rhythm regular, S1,S2 heard, no gallop, no rub. Abdomen- distended, tender in epigastric region. QUALITY ENG- AOOx3, moving all extremities, no focal deficit noted. Medical - PN: Obj Da - Labs CBC & Chem 7: 07/30/16 04:00 07/30/16 04:00 Labs: Abnormal Lab Results 07/30/16 07/30/16 07/29/16 04:00 04:00 15:05 WBC 15.3 H RBC 3.81 L Hgb 11.1 L Hct 34.5 L RDW 15.4 H Gran % Lymph % (Auto) Gran # Lymph # Band Neutrophils % 26 H Lymphocytes % 3 L Nucleated RBCs 1 H WBC Morphology Abnorm A Vacuolated Neuts 1+ A Toxic Granulation 1+ A RBC Morphology Abnorm A Carbon Dioxide 21 L 19 L BUN 35 H 37 H Creatinine 1.5 H 2.0 H Glucose 165 H 156 H Calcium 5.5 L* 5.6 L* Ionized Calcium Julien Phosphorus 2.6 L Magnesium Lactate Dehydrogenase 701 H 645 H C-Reactive Protein 42.8 H Total Protein 4.5 L 5.6 L Albumin 2.6 L 2.7 L Globulin 1.9 L Albumin/Globulin Ratio 0.9 L HDL Cholesterol Amylase Lipase 25-OH Vitamin D Total PTH Intact Urine Protein Urine Glucose (UA) Amorphous Crystals Granular Casts U [place] Prot/Creat Ratio 07/29/16 07/29/16 07/29/16 10:57 10:57 09:16 WBC RBC Hgb Hct RDW Gran % Lymph % (Auto) Gran # Lymph # Band Neutrophils % Lymphocytes % Nucleated RBCs WBC Morphology Vacuolated Neuts Toxic Granulation RBC Morphology Carbon Dioxide BUN Creatinine Glucose Calcium Ionized Calcium Julien Phosphorus Magnesium Lactate Dehydrogenase C-Reactive Protein Total Protein Albumin Globulin Albumin/Globulin Ratio HDL Cholesterol Amylase Lipase 25-OH Vitamin D Total 8.94 L PTH Intact 366.1 H Urine Protein 30 A Urine Glucose (UA) >=500 A Amorphous Crystals Few A Granular Casts 1 H U [place] Prot/Creat Ratio 0.65 H 07/29/16 07/29/16 07/29/16 09:16 05:00 05:00 WBC 23.1 H RBC Hgb Hct RDW 15.6 H Gran % Lymph % (Auto) Gran # Lymph # Band Neutrophils % 42 H Lymphocytes % 3 L Nucleated RBCs WBC Morphology Vacuolated Neuts Toxic Granulation RBC Morphology Carbon Dioxide 20 L 19 L BUN 36 H 33 H Creatinine 2.2 H 2.3 H Glucose 170 H 163 H Calcium 5.5 L* Ionized Calcium Julien 0.72 L* Phosphorus Magnesium Lactate Dehydrogenase 661 H C-Reactive Protein 41.0 H Total Protein 5.5 L Albumin 2.7 L Globulin Albumin/Globulin Ratio HDL Cholesterol 20 L Amylase 1269 H Lipase 620 H 25-OH Vitamin D Total PTH Intact Urine Protein Urine Glucose (UA) Amorphous Crystals Granular Casts U [place] Prot/Creat Ratio 07/28/16 07/28/16 07/27/16 05:50 05:50 14:49 WBC 26.2 H RBC Hgb Hct RDW 15.4 H Gran % 95.9 H Lymph % (Auto) 2.4 L Gran # 25.1 H Lymph # 0.6 L Band Neutrophils % Lymphocytes % Nucleated RBCs WBC Morphology Vacuolated Neuts Toxic Granulation RBC Morphology Carbon Dioxide 21 L BUN Creatinine Glucose 181 H Calcium 6.5 L Ionized Calcium Julien Phosphorus 2.3 L Magnesium 1.2 L Lactate Dehydrogenase 350 H C-Reactive Protein 17.8 H 2.1 H Total Protein Albumin Globulin Albumin/Globulin Ratio HDL Cholesterol Amylase Lipase 25-OH Vitamin D Total PTH Intact Urine Protein Urine Glucose (UA) Amorphous Crystals Granular Casts U [place] Prot/Creat Ratio Meds: Medications Acetaminophen (Tylenol) 650 mg PO Q4-6HP PRN PRN Reason: PAIN/FEVER > 101 Docusate Sodium (Colace) 100 mg PO BID ON LICENSE OF [facility] Last Admin: 07/30/16 08:52 Dose: Not Given Heparin Sodium (Porcine) (Heparin) 5,000 unit SQ Q12 [facility] Last Admin: 07/30/16 08:42 Dose: 5,000 unit Hydralazine HCl (Apresoline) 10 mg IV Q8HP PRN PRN Reason: Hypertension Hydromorphone HCl (Dilaudid) 0.5 - 1 mg IV Q2HP PRN PRN Reason: Pain Last Admin: 07/30/16 11:49 Dose: 0.5 mg Potassium Chloride 40 meq/ (Dextrose) 520 mls @ 130 mls/hr IV UD PRN PRN Reason: K+ = or < 3.5 Magnesium Sulfate (Magnesium Sulfate) 2 gm in 50 mls @ 50 mls/hr IV UD PRN PRN Reason: MG = or < 1.7 Acetaminophen (Ofirmev) 1,000 mg in 100 mls @ 200 mls/hr IV Q6HP PRN PRN Reason: PAIN/FEVER > 101 Potassium Chloride/Dextrose/Sod Cl (Dextrose 5%-1/2ns W/40meq Kcl) 1,000 mls @ 75 mls/hr IV .[id number] ON LICENSE OF [facility] Last Admin: 07/30/16 02:09 Dose: 75 mls/hr Iron Carb/Multivit/[place]/Folic Acid (Multivitamin W/Minerals) 1 tab PO DAILY ON LICENSE OF [facility] Last Admin: 07/30/16 08:52 Dose: Not Given Lorazepam (Ativan) 0.5 mg IV Q6HP PRN PRN Reason: Spasms Last Admin: 07/30/16 03:36 Dose: 0.5 mg Ondansetron HCl (Zofran) 4 mg IV Q4-6HP PRN PRN Reason: Nausea And Vomiting Last Admin: 07/29/16 17:11 Dose: 4 mg Pantoprazole Sodium (Protonix) 40 mg IV QAMAC ON LICENSE OF [facility] Last Admin: 07/30/16 08:39 Dose: 40 mg Fluticasone Furoate [Arnuity Ellipta] Inhaler 1 dose INH DAILY ON LICENSE OF [facility] Last Admin: 07/30/16 09:25 Dose: 1 dose Tiotropium Br/Olodaterol Hcl [ Stiolto Respimat] Inhaler 1 dose INH BID ON LICENSE OF [facility] Last Admin: 07/30/16 09:25 Dose: 1 dose Promethazine HCl (Phenergan) 6.25 - 12.5 mg IV Q4HP PRN PRN Reason: Nausea And Vomiting Last Admin: 07/29/16 20:36 Dose: 6.25 mg Senna/Docusate Sodium (Senna Plus Tablet) 1 tab PO HS ON LICENSE OF [facility] Last Admin: 07/29/16 20:37 Dose: Not Given Sodium Chloride (Saline Flush) 10 ml IV Q8 ON LICENSE OF [facility] Last Admin: 07/30/16 07:05 Dose: Not Given Trazodone HCl (Desyrel) 50 mg PO HSP PRN PRN Reason: Insomnia Medical - PN: A/P - Time Spent With Patient Total time spent is greater than 50% in coordination of care (as documented) at patient's floor/unit and/or counseling patient: (1) Pancreatitis Status: Acute Current Visit: Yes - Narrative A/P Narrative: severe pancreatitis Ileus Severe hypocalcemia Vit D deficiency SIRS Acute hy poxic resp failure Hold feeding for now CT abdomen and pelvis Vit d supplementation (try to cut capsule and give solution via feeding tube, discussed same with pharmacy) IV calcium supplementation Rectal suppository continue oxygen supplementation. Medical - PN: Qual - VTE Deep Vein Thrombosis/Pulmonary Embolism Present on Admission: No
[2016-07-30] MEDS ORDERED: ERGOCALCIFEROL (VITAMIN D2) 50,000 UNIT CAPSULE PO ONE (13:30)
--- NOTE | 2016-07-30 14:14 | Cat Scan Report ---
CLINICAL INFORMATION: Follow-up pancreatitis COMPARISON: Contrast enhanced abdomen and pelvic CT performed three days prior - 07/27/2016. TECHNIQUE: IV contrast was withheld due to mild renal insufficiency. 1000 cc of water was administered for enteric contrast. 2.5 mm helical slices were obtained from the mid heart through the subtrochanteric regions. Following reconstruction, 2.5 mm sagittal, coronal and axial reformatted images were processed and reviewed at bone, lung and soft tissue windows. FINDINGS: Lung bases show small bilateral pleural effusions and atelectasis in the medial flash posterior basilar segment of the left lower lobe - new from previous study. The heart is minimally enlarged and there is calcific plaque visualized coronary arteries. Images should the abdomen show the noncontrasted liver, gallbladder and bile ducts, both kidneys, adrenal glands, spleen and aorta to be normal in size, configuration and attenuation without focal lesion. There is mild diffuse enlargement of the pancreas with edema/inflammation in the peripancreatic fat planes with modest amount of fluid in the lesser sac extending along the left paracolic gutter. This shows a moderate increase from the previous study. There is no evidence of abscess or pseudocyst formation. No gross evidence of pancreatic duct dilatation. There is no free air or adenopathy. Stomach, small large bowel are normal. Feeding tube tip is in the lumen of the transverse duodenum in satisfactory position. Images should the pelvis show uterus is anteflexed and slightly enlarged - 9.2 x 4 cm. There is a 6 mm calcified subserosal fibroid in the mid uterine segment. Urinary bladder is collapsed. Bone windows show degenerative changes and mild chronic bilateral sacroiliitis with partial ankylosis across the SI joints. IMPRESSION: 1. Moderate worsening in diffuse acute pancreatitis with increased fluid within the peripancreatic fat planes, lesser sac and paracolic gutters. No evidence of abscess or pseudocyst or other complication. 2. Small bilateral pleural effusions and atelectasis in the medial/posterior segment of the left lower lobe - new 3. Feeding tube in satisfactory position - transverse duodenum. 4. Mild uterine enlargement - stable Interpreted and Authenticated by: Lee Sharma 07/30/16
[2016-07-30] MEDS: ACETAMINOPHEN 1,000 MG/100 ML BOTTLE IV PRN (14:21)
[2016-07-30 15:06] LABS: ALT/SGPT 10 U/l (0-40); Albumin 2.8 gm/dL (3.2-5.2); Albumin/Globulin Ratio 1.3 (1.0-2.3); Alkaline Phosphatase 64 U/L (39-117); Bilirubin,Direct 0.3 mg/dL (0.0-0.3); Blood Urea Nitrogen 29 mg/dl (8-23); Gamma Glutamyl Transpeptidase 20 U/L (5-36); Magnesium 2.4 mg/dL (1.6-2.5); Phosphorous 2.3 mg/dL (2.7-4.5); Uric Acid 5.4 mg/dL (2.5-8.0)
[2016-07-30] MEDS: SENNOSIDES/DOCUSATE SODIUM 1 TAB TABLET PO SCH (22:10)
[2016-07-31] MEDS: HYDROmorphone 2 MG/ML SYRINGE IV PRN ×9 (00:02→23:10)
[2016-07-31] MEDS: LORazepam 2 MG/ML VIAL IV PRN (00:02)
[2016-07-31 05:53] LABS: Mean Corpuscular HGB Conc 32.4 g/dL (31.0-36.0); Mean Corpuscular Hemoglobin 29.5 pg (26.0-34.0); Platelet Count 172 K/mcL (140-440); RBC 3.61 M/mcL (4.00-5.20); Red Cell Distribution Width 15.8 % (11.5-14.5)
[2016-07-31 06:33] LABS: ALT/SGPT 9 U/l (0-40); Albumin 2.6 gm/dL (3.2-5.2); Albumin/Globulin Ratio 1.2 (1.0-2.3); Alkaline Phosphatase 62 U/L (39-117); Bilirubin,Direct 0.5 mg/dL (0.0-0.3); Blood Urea Nitrogen 21 mg/dl (8-23); C-Reactive Protein 35.7 mg/dl (0.0-0.8); Gamma Glutamyl Transpeptidase 21 U/L (5-36); Magnesium 2.4 mg/dL (1.6-2.5); Phosphorous 2.3 mg/dL (2.7-4.5); Uric Acid 4.7 mg/dL (2.5-8.0)
[2016-07-31] MEDS: MULTIVIT,THER IRON,CA,FA & MIN 1 TABLET PO SCH (07:04)
[2016-07-31] MEDS: DOCUSATE SODIUM 100 MG CAPSULE PO SCH ×2 (07:04→20:53)
[2016-07-31] MEDS: 0.9 % SODIUM CHLORIDE 10 ML SYRINGE IV SCH ×3 (07:12→21:10)
[2016-07-31] MEDS: PANTOPRAZOLE 40 MG VIAL IV SCH (07:32)
[2016-07-31 07:39] LABS: Band Neutrophils % 30 % (0-10); Lymphocytes % 4 % (15-49); Monocytes % (Manual) 8 % (1-9); Platelet Estimate NORMAL (NORMAL); RBC Morphology NORMAL (NORMAL); Segmented Neutrophils % 58 % (38-78)
[2016-07-31] MEDS: DEXTROSE 5%-1/2NS 1,000 ML IV SCH ×2 (08:00→20:55)
[2016-07-31] MEDS: Fluticasone Furoate [Arnuity Ellipta] Inhaler INH SCH (09:00)
[2016-07-31] MEDS: Tiotropium Br/Olodaterol Hcl [Stiolto Respimat] Inhaler INH SCH ×2 (09:00→21:10)
[2016-07-31] MEDS ORDERED: FLEETS ADULT ENEMA PR ONE (09:53)
[2016-07-31] MEDS: HEPARIN 5,000 UNIT/ML VIAL SQ SCH ×2 (10:57→20:53)
--- NOTE | 2016-07-31 13:50 | Internal Med Progress Note ---
Medical - PN: Subj Patient information: Note initiated : 07/31/16 at 1:46 pm Service Date, if different from initiated Date: [] Patient: Olinda Farris 75 y/o F admitted on 07/27/16 for N/V, Severe Pancreatitis. Chief Complaint: [] Interval history: 3/4- patient admitted with acute pancreatitis. Unclear etiology.History of alcoholism. CT no evidence of CBD dilation or cholelithiasis. patient olmesartan and statin which may be implicated in pancreatitis however has been on it for a while. home meds on hold. initial CRP 2.2. Lipase 4800. White count 18,000. Significant abdominal pain requiring IV opioids. Continue NPO/ antiemetics crystalloids. Admit to medical floor. [place] score 12 mandating inpatient hospitalization. Low Jessica score/CT severity index for acute pancreatitis. Started on Primaxin. await Procalcitonin 3/5- worsening leukocytosis at 26,000 with bandemia. CRP is 17.8. Continue daily serial trending. Enteral tube feeding to start in 24 hours. Discussed with patient and family. Agreeable for Dobbhoff. continue crystalloids bolus and maintained 125-150 cc an hour due to extensive third spacing and pancreatic Inflammation. repeat CT scan 72 hours for interval change. patient now needing 3 L oxygen. High-risk development of ARDS . Underlying severe pancreatitis. dC Primaxin in light of normal pro-calcitonin levels. Continue close monitoring. Persistent sirs with tachycardia and tachypnea. continue electrolyte replacement including magnesium and phosphorus. also discussed possible transfer to tertiary Center if clinical deterioration noted. family is appreciative of care. 3/6- Patients still has abdominal pain, no bm passed, no gas, feels that abdomen is distended. No nausea or vomiting. pain control is reported as adequate. WBC stable, CRP is increasing, Ca low, mg ok, patients has new onset renal failure. Ransons score at 48 hrs is 6 indicating 40% mortality. Discussed same with the patient and advised patient needs closer monitoring in PCU status. She is still requiring oxygen and X ray shows possibile pna vs atelectasis. Given neg procalcitonin recently hold off on antibiotics. Discussed with te family that if patient condition worsens will have to x toi to higher center. 3/7 pt seen examined, in chair comfortable, denies any acute overnight events, no BM but did pass some gas USG reviewed, X ray abdomen reviewed (neg for obstruction) , Abdomen still more distended today than yesterday as per nursing staff. Trial of rectal suppository CT abdomen and pelvis without contrast today, discussed same with radiologist, can use water to help delinate bowels to help evaluate pancreas. Feeding tube placed, but given no BM yest, will hold off on starting same. Hypocalcemia still present, s/p calcium supplements Will give some VIt D solution via Feeding tube today to help build reserves. CRP still high, wbc improving, creat improving, pt making urine, renal failure seems pre renal 07/31 Patient seen examined, overnight events noted, she was delirious last night but back to baseline this AM, does not report abdominal pain, but still needs pain meds intermittently, pain meds seem to be helping no BM yet. CT abdomen reviewed no pseudocyst or necrotizing pancreatitis, noted increase fluid. No e/o obstruction in the GI tract. Patient WBC count is improving, renal function back to normal and CRP improved, Oxygen requirements are coming down. Will start gently feeding today to see if she can tolerate this. Plan to get enema to help with bowel movements consider use of relistor if the patient does not respond to enema. basilar infiltrates? aspiration vs atelectasis on CT ,noted that wbc is improving and oxygen requirements improving therefore will hold off on Antibiotics. Ok to ambulate with PT, may help with BM. Continue IV fluids, Pertinent ROS: Denies headache, dizziness Denies chest pain, palpitations Denies cough or shortness of breath abdominal pain present, no nausea or vomiting. - Constitutional Vitals: Vital Signs Temp Pulse Resp BP Pulse Ox 98.6 F 104 H 16 146/87 98 07/31/16 12:00 07/31/16 08:00 07/31/16 12:00 07/31/16 12:00 07/31/16 12:00 Period Temp Pulse Resp BP Sys/Johnson Pulse Ox Last 24 Hr 97.7 F-98.6 F 90-113 11-20 90-149/63-95 91-98 Intake and Output 07/30/16 07/31/16 07/31/16 21:59 05:59 13:59 Intake Total 1000 / 1000 0 / 0 Output Total 300 / 300 825 / 825 Balance 700 / 700 -825 / -825 Weight 237 lb 1.6 oz Intake & Output: Intake & Output 07/30/16 07/31/16 07/31/16 21:59 05:59 13:59 Intake Total 1000 / 1000 0 / 0 Output Total 300 / 300 825 / 825 Balance 700 / 700 -825 / -825 Weight 237 lb 1.6 oz Intake: IV 1000 / 1000 Dextrose 5%-1/2Ns W/40Meq 1000 / 1000 KCl 1,000 ml @ 75 mls/hr IV .[id number] [facility] Rx#: [id number] Oral 0 / 0 Output: Urine Catheter Amount 300 / 300 825 / 825 Other: # Bowel Movements 0 Exam: Constitutional; Afebrile, cooperative, alert, not in distress, morbidly obese Eyes- No icterus, Pupils equal, reactive, No periorbital swelling Ears- Ext ear normal, hearing normal to conversation. Neck- Midline trachea, supple Respiratory system: Air Entry equal on both sides, No wheezing, no rhonchi. basilar crackles noted. CVS- Rate rhythm regular, S1,S2 heard, no gallop, no rub. Abdomen- distended, tender in the epigastric regi0n, no rigidity, BS hypoactive. [employer]- AOOx3, moving all extremities, no focal deficit noted. Medical - PN: Obj Da - Labs CBC & Chem 7: 07/31/16 04:03 07/31/16 04:03 Labs: Abnormal Lab Results 07/31/16 07/31/16 07/30/16 04:03 04:03 12:55 WBC 11.5 H RBC 3.61 L Hgb 10.6 L Hct 32.8 L RDW 15.8 H Band Neutrophils % 30 H Lymphocytes % 4 L Nucleated RBCs WBC Morphology Vacuolated Neuts Toxic Granulation RBC Morphology Potassium 5.3 H Chloride 109 H Carbon Dioxide 21 L 21 L BUN 29 H Creatinine 1.2 H Glucose 126 H 130 H Calcium 6.8 L 6.4 L Ionized Calcium Julien Phosphorus 2.3 L 2.3 L Direct Bilirubin 0.5 H Lactate Dehydrogenase 687 H 677 H C-Reactive Protein 35.7 H Total Protein 4.7 L 4.9 L Albumin 2.6 L 2.8 L Globulin 2.1 L 2.1 L Albumin/Globulin Ratio HDL Cholesterol Amylase Lipase 25-OH Vitamin D Total PTH Intact Urine Protein Urine Glucose (UA) Amorphous Crystals Granular Casts U [place] Prot/Creat Ratio 07/30/16 07/30/16 07/29/16 04:00 04:00 15:05 WBC 15.3 H RBC 3.81 L Hgb 11.1 L Hct 34.5 L RDW 15.4 H Band Neutrophils % 26 H Lymphocytes % 3 L Nucleated RBCs 1 H WBC Morphology Abnorm A Vacuolated Neuts 1+ A Toxic Granulation 1+ A RBC Morphology Abnorm A Potassium Chloride Carbon Dioxide 21 L 19 L BUN 35 H 37 H Creatinine 1.5 H 2.0 H Glucose 165 H 156 H Calcium 5.5 L* 5.6 L* Ionized Calcium Julien Phosphorus 2.6 L Direct Bilirubin Lactate Dehydrogenase 701 H 645 H C-Reactive Protein 42.8 H Total Protein 4.5 L 5.6 L Albumin 2.6 L 2.7 L Globulin 1.9 L Albumin/Globulin Ratio 0.9 L HDL Cholesterol Amylase Lipase 25-OH Vitamin D Total PTH Intact Urine Protein Urine Glucose (UA) Amorphous Crystals Granular Casts U [place] Prot/Creat Ratio 07/29/16 07/29/16 07/29/16 10:57 10:57 09:16 WBC RBC Hgb Hct RDW Band Neutrophils % Lymphocytes % Nucleated RBCs WBC Morphology Vacuolated Neuts Toxic Granulation RBC Morphology Potassium Chloride Carbon Dioxide BUN Creatinine Glucose Calcium Ionized Calcium Julien Phosphorus Direct Bilirubin Lactate Dehydrogenase C-Reactive Protein Total Protein Albumin Globulin Albumin/Globulin Ratio HDL Cholesterol Amylase Lipase 25-OH Vitamin D Total 8.94 L PTH Intact 366.1 H Urine Protein 30 A Urine Glucose (UA) >=500 A Amorphous Crystals Few A Granular Casts 1 H U [place] Prot/Creat Ratio 0.65 H 07/29/16 07/29/16 07/29/16 09:16 05:00 05:00 WBC 23.1 H RBC Hgb Hct RDW 15.6 H Band Neutrophils % 42 H Lymphocytes % 3 L Nucleated RBCs WBC Morphology Vacuolated Neuts Toxic Granulation RBC Morphology Potassium Chloride Carbon Dioxide 20 L 19 L BUN 36 H 33 H Creatinine 2.2 H 2.3 H Glucose 170 H 163 H Calcium 5.5 L* Ionized Calcium Julien 0.72 L* Phosphorus Direct Bilirubin Lactate Dehydrogenase 661 H C-Reactive Protein 41.0 H Total Protein 5.5 L Albumin 2.7 L Globulin Albumin/Globulin Ratio HDL Cholesterol 20 L Amylase 1269 H Lipase 620 H 25-OH Vitamin D Total PTH Intact Urine Protein Urine Glucose (UA) Amorphous Crystals Granular Casts U [place] Prot/Creat Ratio Meds: Medications Acetaminophen (Tylenol) 650 mg PO Q4-6HP PRN PRN Reason: PAIN/FEVER > 101 Chlorhexidine Gluconate (Peridex) 15 ml SWABMOUTH BID [facility] Docusate Sodium (Colace) 100 mg PO BID [facility] Last Admin: 07/31/16 07:04 Dose: Not Given Heparin Sodium (Porcine) (Heparin) 5,000 unit SQ Q12 [facility] Last Admin: 07/31/16 10:57 Dose: 5,000 unit Hydralazine HCl (Apresoline) 10 mg IV Q8HP PRN PRN Reason: Hypertension Hydromorphone HCl (Dilaudid) 0.5 - 1 mg IV Q2HP PRN PRN Reason: Pain Last Admin: 07/31/16 12:43 Dose: 0.5 mg Potassium Chloride 40 meq/ (Dextrose) 520 mls @ 130 mls/hr IV UD PRN PRN Reason: K+ = or < 3.5 Magnesium Sulfate (Magnesium Sulfate) 2 gm in 50 mls @ 50 mls/hr IV UD PRN PRN Reason: MG = or < 1.7 Acetaminophen (Ofirmev) 1,000 mg in 100 mls @ 200 mls/hr IV Q6HP PRN PRN Reason: PAIN/FEVER > 101 Last Admin: 07/30/16 14:21 Dose: 200 mls/hr Dextrose/Sodium Chloride (Dextrose 5%-1/2ns Iv Solution) 1,000 mls @ 75 mls/hr IV .[id number] [facility] Last Admin: 07/31/16 08:00 Dose: 75 mls/hr Iron Carb/Multivit/[place]/Folic Acid (Multivitamin W/Minerals) 1 tab PO DAILY [facility] Last Admin: 07/31/16 07:04 Dose: Not Given Lorazepam (Ativan) 0.5 mg IV Q6HP PRN PRN Reason: Spasms Last Admin: 07/31/16 00:02 Dose: 0.5 mg Ondansetron HCl (Zofran) 4 mg IV Q4-6HP PRN PRN Reason: Nausea And Vomiting Last Admin: 07/29/16 17:11 Dose: 4 mg Pantoprazole Sodium (Protonix) 40 mg IV QAMAC [facility] Last Admin: 07/31/16 07:32 Dose: 40 mg Fluticasone Furoate [Arnuity Ellipta] Inhaler 1 dose INH DAILY [facility] Last Admin: 07/31/16 09:00 Dose: 1 dose Tiotropium Br/Olodaterol Hcl [ Stiolto Respimat] Inhaler 1 dose INH BID [facility] Last Admin: 07/31/16 09:00 Dose: 1 dose Promethazine HCl (Phenergan) 6.25 - 12.5 mg IV Q4HP PRN PRN Reason: Nausea And Vomiting Last Admin: 07/29/16 20:36 Dose: 6.25 mg Senna/Docusate Sodium (Senna Plus Tablet) 1 tab PO HS [facility] Last Admin: 07/30/16 22:10 Dose: Not Given Sodium Chloride (Saline Flush) 10 ml IV Q8 [facility] Last Admin: 07/31/16 07:12 Dose: Not Given Trazodone HCl (Desyrel) 50 mg PO HSP PRN PRN Reason: Insomnia Medical - PN: A/P - Time Spent With Patient Total time spent is greater than 50% in coordination of care (as documented) at patient's floor/unit and/or counseling patient: (1) Pancreatitis Status: Acute Current Visit: Yes (2) Ileus Status: Acute Current Visit: Yes (3) Hypocalcemia Status: Acute Current Visit: Yes (4) Vitamin D deficiency Status: Acute Current Visit: Yes (5) Hyperkalemia Status: Acute Current Visit: Yes - Narrative A/P Narrative: Patient clinically improving Enema today to help with BM, consider relistor if enema does not work IV fluids to continue Change fluids from d5.1/2ns 2ith 40- of KCL to just d5 half ns Monitor K Renal fuctinon back to normal STart on NG feeds slowly to see if she is able to tolerate any. hold if no BM within 24 hrs. Medical - PN: Qual - VTE Deep Vein Thrombosis/Pulmonary Embolism Present on Admission: No
[2016-07-31] MEDS: DEXTROSE 5%-1/2NS W/40MEQ KCL 1,000 ML IV SCH (14:08)
[2016-07-31] MEDS: CHLORHEXIDINE GLUCONATE 1 ML ORAL.SOL SWABMOUTH SCH (20:54)
[2016-07-31] MEDS: SENNOSIDES/DOCUSATE SODIUM 1 TAB TABLET PO SCH (20:54)
[2016-08-01] MEDS: HYDROmorphone 2 MG/ML SYRINGE IV PRN ×6 (01:19→22:32)
[2016-08-01] MEDS: 0.9 % SODIUM CHLORIDE 10 ML SYRINGE IV SCH ×3 (05:26→22:08)
[2016-08-01 05:50] LABS: Mean Cell Volume 92.1 fL (80.0-100.0); Mean Corpuscular HGB Conc 31.7 g/dL (31.0-36.0); Mean Corpuscular Hemoglobin 29.2 pg (26.0-34.0); Platelet Count 172 K/mcL (140-440); RBC 3.48 M/mcL (4.00-5.20); Red Cell Distribution Width 15.7 % (11.5-14.5)
[2016-08-01] MEDS: LORazepam 2 MG/ML VIAL IV PRN (06:49)
[2016-08-01] MEDS: PANTOPRAZOLE 40 MG VIAL IV SCH (06:52)
[2016-08-01 07:01] LABS: ALT/SGPT 10 U/l (0-40); Albumin 2.4 gm/dL (3.2-5.2); Albumin/Globulin Ratio 1.1 (1.0-2.3); Alkaline Phosphatase 66 U/L (39-117); Bilirubin,Direct 0.5 mg/dL (0.0-0.3); Blood Urea Nitrogen 17 mg/dl (8-23); C-Reactive Protein 31.7 mg/dl (0.0-0.8); Gamma Glutamyl Transpeptidase 29 U/L (5-36); Magnesium 2.1 mg/dL (1.6-2.5); Phosphorous 2.2 mg/dL (2.7-4.5); Uric Acid 3.8 mg/dL (2.5-8.0)
[2016-08-01 08:22] LABS: Band Neutrophils % 41 % (0-10); Dohle Bodies FEW (NONE SEEN); Lymphocytes % 7 % (15-49); Myelocytes % 2 % (0-0); Platelet Estimate NORMAL (NORMAL); RBC Morphology NORMAL (NORMAL); Segmented Neutrophils % 50 % (38-78); Toxic Granulation 1+ (NONE SEEN)
[2016-08-01] MEDS: ACETAMINOPHEN 1,000 MG/100 ML BOTTLE IV PRN (08:35)
[2016-08-01] MEDS: DOCUSATE SODIUM 100 MG CAPSULE PO SCH ×2 (08:51→21:11)
[2016-08-01] MEDS: MULTIVIT,THER IRON,CA,FA & MIN 1 TABLET PO SCH (08:51)
[2016-08-01] MEDS: CHLORHEXIDINE GLUCONATE 1 ML ORAL.SOL SWABMOUTH SCH ×2 (08:57→21:13)
[2016-08-01] MEDS: Tiotropium Br/Olodaterol Hcl [Stiolto Respimat] Inhaler INH SCH ×2 (08:58→21:12)
[2016-08-01] MEDS: HEPARIN 5,000 UNIT/ML VIAL SQ SCH ×2 (08:59→21:11)
[2016-08-01] MEDS: Fluticasone Furoate [Arnuity Ellipta] Inhaler INH SCH (08:59)
--- NOTE | 2016-08-01 11:58 | Internal Med Progress Note ---
Medical - PN: Subj Patient information: Note initiated : 08/01/16 at 11:58 am Service Date, if different from initiated Date: [] Patient: Olinda Farris 75 y/o F admitted on 07/27/16 for N/V, Severe Pancreatitis. Chief Complaint: [] Interval history: on service note: History of present illness; 07/27- patient admitted with acute pancreatitis. Unclear etiology.History of alcoholism. CT no evidence of CBD dilation or cholelithiasis. patient olmesartan and statin which may be implicated in pancreatitis however has been on it for a while. home meds on hold. initial CRP 2.2. Lipase 4800. White count 18,000. Significant abdominal pain requiring IV opioids. Continue NPO/ antiemetics crystalloids. Admit to medical floor. [place] score 12 mandating inpatient hospitalization. Low [place] score/CT severity index for acute pancreatitis. Started on Primaxin. await Procalcitonin 07/28- worsening leukocytosis at 26,000 with bandemia. CRP is 17.8. Continue daily serial trending. Enteral tube feeding to start in 24 hours. Discussed with patient and family. Agreeable for Dobbhoff. continue crystalloids bolus and maintained 125-150 cc an hour due to extensive third spacing and pancreatic Inflammation. repeat CT scan 72 hours for interval change. patient now needing 3 L oxygen. High-risk development of ARDS . Underlying severe pancreatitis. dC Primaxin in light of normal pro-calcitonin levels. Continue close monitoring. Persistent sirs with tachycardia and tachypnea. continue electrolyte replacement including magnesium and phosphorus. also discussed possible transfer to tertiary Center if clinical deterioration noted. family is appreciative of care. 08/01/16: clinically, the patient has been fairly stable for the last day or so. She continues to have some intermittent delirium but overall pain appears to be better controlled. She also appears to be tolerating tube feedings so far, without significant increase in pain. tube feed-Residuals are acceptable. She did have 1 small bowel movement, but not much activity since then. -his evening, she has been complaining of increased work of breathing. She does have more wheezing and rales on exam. review of her home medications to show that she is generally on a long-acting bronchodilator plus tiotropium plus a steroid inhaler. -the patient had significant hypocalcemia on admission, but that has been corrected. CRP and white blood cell count have been improving. Acute renal dysfunction also appears to be improving. -Follow up CT scan did show worsening of her pancreatitis, but no obvious cyst formation. -otherwise,she denies significant pain at this time, although staff notes that she tends to ask for pain medications every 2-4 hours. Some of her pain is more in her back then in her abdomen. Reliability of her history is somewhat suspect, but she denies fever or chills, sore throat. She is having some coughing, and some wheezing, and says she has some intermittent shortness of breath. She denies significant abdominal pain at this time, and denies nausea or vomiting. However during her interview, she is picking at the oximeter on her finger, and reports she cannot quite figure out why she can't get it off. past medical history is notable for hypertension, hyperlipidemia, reactive airways disease, type 2 diabetes. Home medications included metformin, titropium/olodaterol,rosuvastatin, losartan with HCTZ, fluticasone inhaler. - Constitutional Vitals: Vital Signs Temp Pulse Resp BP Pulse Ox 98.4 F 105 H 16 137/74 94 08/01/16 08:00 08/01/16 08:00 08/01/16 07:00 08/01/16 08:00 08/01/16 08:00 Period Temp Pulse Resp BP Sys/Johnson Pulse Ox Last 24 Hr 97.5 F-98.7 F 72-110 11-25 100-159/48-90 92-98 Intake and Output 07/31/16 08/01/16 08/01/16 21:59 05:59 13:59 Intake Total 2638 / 2638 0 / 0 739 / 739 Output Total 800 / 800 510 / 510 Balance 1838 / 1838 -510 / -510 739 / 739 Weight 238 lb 4.8 oz Intake & Output: Intake & Output 07/31/16 08/01/16 08/01/16 21:59 05:59 13:59 Intake Total 2638 / 2638 0 / 0 739 / 739 Output Total 800 / 800 510 / 510 Balance 1838 / 1838 -510 / -510 739 / 739 Weight 238 lb 4.8 oz Intake: IV 2138 / 2138 739 / 739 Dextrose 5%-1/2Ns IV 968 / 968 739 / 739 Solution 1,000 ml @ 75 mls/hr IV .[id number] [facility] Rx #:[id number] Dextrose 5%-1/2Ns W/40Meq 1000 / 1000 KCl 1,000 ml @ 75 mls/hr IV .[id number] [facility] Rx#: [id number] Oral 0 / 0 0 / 0 GI Tube Flush 500 / 500 Output: Urine Catheter Amount 800 / 800 510 / 510 Exam: on exam, she is an overweight white female who is intermittently confused. She is not in any great distress. Neck is supple without obvious JVD. Cardiac exam shows regular rate and rhythm. Lungs exhibit coarse breath sounds with scattered crackles. Abdomen is protuberant, but not especially tender. There is no guarding or rebound.bowel sounds are active. Extremities show significant dependent edema Neurologic exam:the patient's mental status is waxing and waning. Her motor exam is grossly nonfocal. Medical - PN: Obj Da - Labs CBC & Chem 7: 08/01/16 04:05 08/01/16 04:05 Labs: Abnormal Lab Results 08/01/16 08/01/16 07/31/16 04:05 04:05 04:03 WBC 12.4 H RBC 3.48 L Hgb 10.1 L Hct 32.0 L RDW 15.7 H Band Neutrophils % 41 H Lymphocytes % 7 L Myelocytes % 2 H Nucleated RBCs WBC Morphology Abnorm A Vacuolated Neuts Toxic Granulation 1+ A Dohle Bodies Few A RBC Morphology Potassium 5.3 H Chloride 109 H Carbon Dioxide 21 L BUN Creatinine Glucose 138 H 126 H Calcium 7.4 L 6.8 L Phosphorus 2.2 L 2.3 L Direct Bilirubin 0.5 H 0.5 H Lactate Dehydrogenase 565 H 687 H C-Reactive Protein 31.7 H 35.7 H Total Protein 4.5 L 4.7 L Albumin 2.4 L 2.6 L Globulin 2.1 L 2.1 L Albumin/Globulin Ratio 07/31/16 07/30/16 07/30/16 04:03 12:55 04:00 WBC 11.5 H RBC 3.61 L Hgb 10.6 L Hct 32.8 L RDW 15.8 H Band Neutrophils % 30 H Lymphocytes % 4 L Myelocytes % Nucleated RBCs WBC Morphology Vacuolated Neuts Toxic Granulation Dohle Bodies RBC Morphology Potassium Chloride Carbon Dioxide 21 L 21 L BUN 29 H 35 H Creatinine 1.2 H 1.5 H Glucose 130 H 165 H Calcium 6.4 L 5.5 L* Phosphorus 2.3 L 2.6 L Direct Bilirubin Lactate Dehydrogenase 677 H 701 H C-Reactive Protein 42.8 H Total Protein 4.9 L 4.5 L Albumin 2.8 L 2.6 L Globulin 2.1 L 1.9 L Albumin/Globulin Ratio 07/30/16 07/29/16 04:00 15:05 WBC 15.3 H RBC 3.81 L Hgb 11.1 L Hct 34.5 L RDW 15.4 H Band Neutrophils % 26 H Lymphocytes % 3 L Myelocytes % Nucleated RBCs 1 H WBC Morphology Abnorm A Vacuolated Neuts 1+ A Toxic Granulation 1+ A Dohle Bodies RBC Morphology Abnorm A Potassium Chloride Carbon Dioxide 19 L BUN 37 H Creatinine 2.0 H Glucose 156 H Calcium 5.6 L* Phosphorus Direct Bilirubin Lactate Dehydrogenase 645 H C-Reactive Protein Total Protein 5.6 L Albumin 2.7 L Globulin Albumin/Globulin Ratio 0.9 L blood cultures are negative so far chest x-ray from this evening, shows moderate left basilar infiltrate and worsening small effusion. There is also atelectasis of the right base. 07/30/16:CT of the abdomen shows moderate worseningof the acute pancreatitis with increased rubin-Pancreaticfluid. No evidence of pseudocyst. Small bilateral pleural effusions. Feeding tube in satisfactory positionin the duodenum.mild uterine enlargement. Meds: Medications Acetaminophen (Tylenol) 650 mg PO Q4-6HP PRN PRN Reason: PAIN/FEVER > 101 Chlorhexidine Gluconate (Peridex) 15 ml SWABMOUTH BID [facility] Last Admin: 08/01/16 08:57 Dose: 15 ml Docusate Sodium (Colace) 100 mg PO BID [facility] Last Admin: 08/01/16 08:51 Dose: Not Given Heparin Sodium (Porcine) (Heparin) 5,000 unit SQ Q12 [facility] Last Admin: 08/01/16 08:59 Dose: 5,000 unit Hydralazine HCl (Apresoline) 10 mg IV Q8HP PRN PRN Reason: Hypertension Hydromorphone HCl (Dilaudid) 1 - 2 mg IV Q2HP PRN PRN Reason: Pain Last Admin: 08/01/16 05:26 Dose: 1 mg Potassium Chloride 40 meq/ (Dextrose) 520 mls @ 130 mls/hr IV UD PRN PRN Reason: K+ = or < 3.5 Magnesium Sulfate (Magnesium Sulfate) 2 gm in 50 mls @ 50 mls/hr IV UD PRN PRN Reason: MG = or < 1.7 Acetaminophen (Ofirmev) 1,000 mg in 100 mls @ 200 mls/hr IV Q6HP PRN PRN Reason: PAIN/FEVER > 101 Last Admin: 08/01/16 08:35 Dose: 200 mls/hr Dextrose/Sodium Chloride (Dextrose 5%-1/2ns Iv Solution) 1,000 mls @ 75 mls/hr IV .[id number] [facility] Last Infusion: 08/01/16 06:46 Dose: 75 mls/hr Iron Carb/Multivit/[place]/Folic Acid (Multivitamin W/Minerals) 1 tab PO DAILY [facility] Last Admin: 08/01/16 08:51 Dose: Not Given Lorazepam (Ativan) 0.5 mg IV Q6HP PRN PRN Reason: Spasms Last Admin: 08/01/16 06:49 Dose: 0.5 mg Ondansetron HCl (Zofran) 4 mg IV Q4-6HP PRN PRN Reason: Nausea And Vomiting Last Admin: 07/29/16 17:11 Dose: 4 mg Pantoprazole Sodium (Protonix) 40 mg IV QAMAC [facility] Last Admin: 08/01/16 06:52 Dose: 40 mg Fluticasone Furoate [Arnuity Ellipta] Inhaler 1 dose INH DAILY [facility] Last Admin: 08/01/16 08:59 Dose: 1 dose Tiotropium Br/Olodaterol Hcl [ Stiolto Respimat] Inhaler 1 dose INH BID [facility] Last Admin: 08/01/16 08:58 Dose: 1 dose Promethazine HCl (Phenergan) 6.25 - 12.5 mg IV Q4HP PRN PRN Reason: Nausea And Vomiting Last Admin: 07/29/16 20:36 Dose: 6.25 mg Senna/Docusate Sodium (Senna Plus Tablet) 1 tab PO HS [facility] Last Admin: 07/31/16 20:54 Dose: Not Given Sodium Chloride (Saline Flush) 10 ml IV Q8 [facility] Last Admin: 08/01/16 05:26 Dose: 10 ml Trazodone HCl (Desyrel) 50 mg PO HSP PRN PRN Reason: Insomnia Medical - PN: A/P - Time Spent With Patient Total time spent is greater than 50% in coordination of care (as documented) at patient's floor/unit and/or counseling patient: - Narrative A/P Narrative: assessment and plan #1. GI. severe and acute pancreatitis. The patient's pain appears reasonably well- controlled. CRP is improving. Total calcium has improved though phosphorus remains a bit low. LDH is improving. -recheck lipase and amylase which were quite elevated at admission. metformin, Crestor, losartan are all on hold. -she seems to be tolerating tube feeds at this point, so we will continue with those.we'll try to keep the head of her bed elevated, to decrease the risk of aspiration. -continue to monitor bowel function. -continue Protonix for GI prophylaxis. #2. Pulmonary. -history of reactive airways disease. -the patient is having some increased shortness of breath and cough today, and chest x-ray suggestive of possible basilar infiltrate. I will add Zosyn to cover for possible aspiration pneumonia as well as to cover her abdomen Reasonably well. -add DuoNeb's, and inhaled steroids if those are available.continue when necessary oxygen. #3. CODE STATUS: Full code. #4. DVT prophylaxis:subcutaneous heparin. #5. Neurologic. The patient's altered mental status is likely due to a medical delirium. However several of her medications may also be contributing. I will discontinue the Phenergan, as well as the trazodone.. #6. Renal. Calcium and vitamin D were supplemented, and are improving. #7. Hypertension-blood pressures are reasonably well-controlled. #8. Hyperlipidemia-meds are on hold for now. #9. History of type 2 diabetes. metformin is on hold. Cover with sliding scale insulin. This visit took approximately 35 minutes today, to review the patient's records and test results, interview and examine her, review her plan of care with both nursing staff found her , and write orders. Medical - PN: Qual - VTE Deep Vein Thrombosis/Pulmonary Embolism Present on Admission: No
[2016-08-01] MEDS: DEXTROSE 5%-1/2NS 1,000 ML IV SCH (13:16)
--- NOTE | 2016-08-01 18:05 | XRay Report ---
CLINICAL INFORMATION: Shortness of breath COMPARISON: 07/29/2016 FINDINGS: Moderate cardiomegaly is unchanged. Mediastinum and pulmonary vessels are normal. Moderate sized infiltrate in the left base has worsened. Minor atelectasis has developed in the right base. A small left pleural effusion noted IMPRESSION: Moderate left basilar infiltrate small effusion worsening considerably Interpreted and Authenticated by: Lee Sharma 08/01/16
[2016-08-01] MEDS ORDERED: DEXTROSE 50% 50 ML VIAL IV PRN (19:03)
[2016-08-01] MEDS: IPRATROPIUM/ALBUTEROL 3 ML AMPUL.NEB NEB SCH ×2 (20:22→21:40)
[2016-08-01] MEDS ORDERED: PIPERACILLIN SODIUM/TAZOBACTAM 3.375 GM VIAL IV ONE (20:38)
[2016-08-01] MEDS: PIPERACILLIN SODIUM/TAZOBACTAM 3.375 GM in DEXTROSE 5% IN WATER 50 ML IV SCH (20:47)
[2016-08-01] MEDS: SENNOSIDES/DOCUSATE SODIUM 1 TAB TABLET PO SCH (21:13)
[2016-08-01] MEDS: INSULIN LISPRO 1 UNIT/0.01 ML UNIT SQ SCH (21:19)
[2016-08-02] MEDS ORDERED: PIPERACILLIN SODIUM/TAZOBACTAM 3.375 GM VIAL IV ONE ×2 (00:56→05:38)
[2016-08-02] MEDS: HYDROmorphone 2 MG/ML SYRINGE IV PRN ×7 (01:01→21:39)
[2016-08-02] MEDS: IPRATROPIUM/ALBUTEROL 3 ML AMPUL.NEB NEB SCH ×4 (01:02→21:20)
[2016-08-02] MEDS: PIPERACILLIN SODIUM/TAZOBACTAM 3.375 GM in DEXTROSE 5% IN WATER 50 ML IV SCH ×6 (01:02→23:50)
[2016-08-02] MEDS: DEXTROSE 5%-1/2NS 1,000 ML IV SCH ×2 (01:36→04:42)
[2016-08-02 05:38] LABS: Basophils # (Auto) 0 K/mcL (0.0-0.3); Basophils % (Auto) 0 % (0.0-2.0); Eosinophils # (Auto) 0.1 K/mcL (0.0-0.7); Eosinophils % (Auto) 0.6 % (0.0-7.0); Granulocytes % (Auto) 93.4 % (38.0-78.0); Lymphocytes # (Auto) 0.6 K/mcL (1.5-4.8); Lymphocytes % (Auto) 3.6 % (15.5-49.0); Mean Cell Volume 92.4 fL (80.0-100.0); Mean Corpuscular HGB Conc 31.6 g/dL (31.0-36.0); Mean Corpuscular Hemoglobin 29.2 pg (26.0-34.0); Monocytes # (Auto) 0.4 K/mcL (0.1-0.9); Monocytes % (Auto) 2.4 % (1.0-9.0); Platelet Count 191 K/mcL (140-440); RBC 3.51 M/mcL (4.00-5.20)
[2016-08-02] MEDS: 0.9 % SODIUM CHLORIDE 10 ML SYRINGE IV SCH ×3 (05:56→22:13)
[2016-08-02 06:35] LABS: ALT/SGPT 11 U/l (0-40); Albumin 2.2 gm/dL (3.2-5.2); Albumin/Globulin Ratio 0.7 (1.0-2.3); Alkaline Phosphatase 83 U/L (39-117); Amylase 45 U/L (28-100); Bilirubin,Direct 0.4 mg/dL (0.0-0.3); Blood Urea Nitrogen 18 mg/dl (8-23); C-Reactive Protein 30.5 mg/dl (0.0-0.8); Gamma Glutamyl Transpeptidase 41 U/L (5-36); Lipase 13 U/L (7-60); Magnesium 2.1 mg/dL (1.6-2.5); Phosphorous 2.3 mg/dL (2.7-4.5)
[2016-08-02] MEDS: PANTOPRAZOLE 40 MG VIAL IV SCH (07:27)
[2016-08-02] MEDS: INSULIN LISPRO 1 UNIT/0.01 ML UNIT SQ SCH ×4 (07:33→20:28)
[2016-08-02] MEDS: DOCUSATE SODIUM 100 MG CAPSULE PO SCH ×2 (09:52→20:41)
[2016-08-02] MEDS: MULTIVIT,THER IRON,CA,FA & MIN 1 TABLET PO SCH (09:52)
[2016-08-02] MEDS: HEPARIN 5,000 UNIT/ML VIAL SQ SCH ×2 (09:52→20:41)
[2016-08-02] MEDS: CHLORHEXIDINE GLUCONATE 1 ML ORAL.SOL SWABMOUTH SCH ×2 (09:53→20:42)
--- NOTE | 2016-08-02 11:13 | Internal Med Progress Note ---
Medical - PN: Subj Patient information: Note initiated : 08/02/16 at 11:13 am Service Date, if different from initiated Date: [] Patient: Olinda Farris 75 y/o F admitted on 07/27/16 for N/V, Severe Pancreatitis. Chief Complaint: [] Interval history: History of present illness; 07/27- patient admitted with acute pancreatitis. Unclear etiology.History of alcoholism. CT no evidence of CBD dilation or cholelithiasis. patient olmesartan and statin which may be implicated in pancreatitis however has been on it for a while. home meds on hold. initial CRP 2.2. Lipase 4800. White count 18,000. Significant abdominal pain requiring IV opioids. Continue NPO/ antiemetics crystalloids. Admit to medical floor. Hawkins score 12 mandating inpatient hospitalization. Low Jessica score/CT severity index for acute pancreatitis. Started on Primaxin. await Procalcitonin 07/28- worsening leukocytosis at 26,000 with bandemia. CRP is 17.8. Continue daily serial trending. Enteral tube feeding to start in 24 hours. Discussed with patient and family. Agreeable for Dobbhoff. continue crystalloids bolus and maintained 125-150 cc an hour due to extensive third spacing and pancreatic Inflammation. repeat CT scan 72 hours for interval change. patient now needing 3 L oxygen. High-risk development of ARDS . Underlying severe pancreatitis. dC Primaxin in light of normal pro-calcitonin levels. Continue close monitoring. Persistent sirs with tachycardia and tachypnea. continue electrolyte replacement including magnesium and phosphorus. also discussed possible transfer to tertiary Center if clinical deterioration noted. family is appreciative of care. 08/01/16: clinically, the patient has been fairly stable for the last day or so. She continues to have some intermittent delirium but overall pain appears to be better controlled. She also appears to be tolerating tube feedings so far, without significant increase in pain. tube feed-Residuals are acceptable. She did have 1 small bowel movement, but not much activity since then. -his evening, she has been complaining of increased work of breathing. She does have more wheezing and rales on exam. review of her home medications to show that she is generally on a long-acting bronchodilator plus tiotropium plus a steroid inhaler. -the patient had significant hypocalcemia on admission, but that has been corrected. CRP and white blood cell count have been improving. Acute renal dysfunction also appears to be improving. -Follow up CT scan did show worsening of her pancreatitis, but no obvious cyst formation. -otherwise,she denies significant pain at this time, although staff notes that she tends to ask for pain medications every 2-4 hours. Some of her pain is more in her back then in her abdomen. Reliability of her history is somewhat suspect, but she denies fever or chills, sore throat. She is having some coughing, and some wheezing, and says she has some intermittent shortness of breath. She denies significant abdominal pain at this time, and denies nausea or vomiting. However during her interview, she is picking at the oximeter on her finger, and reports she cannot quite figure out why she can't get it off. 08/02/16: Today, the patient is a little more alert. She is required a little bit less pain medicine overnight than the day before. she is having less anterior abdominal and left upper quadrant pain now, but continues to complain of discomfort in her bilateral sides. Nurses were able to get her up to a chair for quite some time today, which she tolerated reasonably well. -She is tolerating her tube feeds quite well, and residuals have been 0. Amylase and lipase are back to normal on today's labs. -chest x-ray yesterday was consistent with a left basilar pneumonia, also consistent with her increased cough and shortness of breath. She has been working harder today on incentive spirometry. Zosyn IV was started last night, and nebulized bronchodilatorswere orderedon a scheduled basis as well as nebulized Pulmicort. otherwise, she denies fever or chills, chest pain or palpitations. Her cough is mostly nonproductive. She denies nausea or vomiting or diarrhea. Iqbal catheter remains in place. past medical history is notable for hypertension, hyperlipidemia, reactive airways disease, type 2 diabetes. Home medications included metformin, titropium/olodaterol Inhaler,rosuvastatin, losartan with HCTZ, fluticasone inhaler. - Constitutional Vitals: Vital Signs Temp Pulse Resp BP Pulse Ox 98.5 F 103 H 18 148/93 96 08/02/16 08:00 08/02/16 06:00 08/02/16 09:00 08/02/16 09:00 08/02/16 09:00 Period Temp Pulse Resp BP Sys/Johnson Pulse Ox Last 24 Hr 97.1 F-98.5 F 97-109 12-94 114-160/60-93 93-97 Intake and Output 08/01/16 08/02/16 08/02/16 21:59 05:59 13:59 Intake Total 1130 / 1130 250 / 250 Output Total 550 / 550 550 / 550 Balance -550 / -550 580 / 580 250 / 250 Weight 238 lb 6.4 oz Intake & Output: Intake & Output 08/01/16 08/02/16 08/02/16 21:59 05:59 13:59 Intake Total 1130 / 1130 250 / 250 Output Total 550 / 550 550 / 550 Balance -550 / -550 580 / 580 250 / 250 Weight 238 lb 6.4 oz Intake: IV 1000 / 1000 Dextrose 5%-1/2Ns IV 1000 / 1000 Solution 1,000 ml @ 75 mls/hr IV .[id number] [facility] Rx #:[id number] GI Tube Flush 30 / 30 250 / 250 IV - Manual Only 100 / 100 Output: Urine Catheter Amount 550 / 550 550 / 550 Exam: n exam, she is more alert than yesterday. But she still gets quite sleepy after doses of Dilaudid. Neck is supple without obvious JVD. Cardiac exam shows regular rate and rhythm. She remains slightly tachycardic. Lungs: Show diminished breath sounds at the bases, but I do not hear rales, rhonchi, or wheezes at this time. There is no sensory muscle use. Abdomen: Is quite protuberant, but generally nontender to palpation. Bowel sounds are active. Iqbal catheter is draining reddish brown urine. Extremities: Continue to show dependent edema. neurologic exam: Her level of alertness seems improved today. Motor exam continues nonfocal. Medical - PN: Obj Da - Labs CBC & Chem 7: 08/02/16 04:05 08/02/16 04:05 Labs: Abnormal Lab Results 08/02/16 08/02/16 08/01/16 04:05 04:05 04:05 WBC 16.9 H RBC 3.51 L Hgb 10.2 L Hct 32.4 L RDW 16.0 H Gran % 93.4 H Lymph % (Auto) 3.6 L Gran # 15.8 H Lymph # 0.6 L Band Neutrophils % Lymphocytes % Myelocytes % WBC Morphology Toxic Granulation Dohle Bodies Potassium Chloride Carbon Dioxide BUN Creatinine Glucose 161 H 138 H Calcium 8.0 L 7.4 L Phosphorus 2.3 L 2.2 L Direct Bilirubin 0.4 H 0.5 H GGT 41 H Lactate Dehydrogenase 441 H 565 H C-Reactive Protein 30.5 H 31.7 H Total Protein 5.5 L 4.5 L Albumin 2.2 L 2.4 L Globulin 2.1 L Albumin/Globulin Ratio 0.7 L 08/01/16 07/31/16 07/31/16 04:05 04:03 04:03 WBC 12.4 H 11.5 H RBC 3.48 L 3.61 L Hgb 10.1 L 10.6 L Hct 32.0 L 32.8 L RDW 15.7 H 15.8 H Gran % Lymph % (Auto) Gran # Lymph # Band Neutrophils % 41 H 30 H Lymphocytes % 7 L 4 L Myelocytes % 2 H WBC Morphology Abnorm A Toxic Granulation 1+ A Dohle Bodies Few A Potassium 5.3 H Chloride 109 H Carbon Dioxide 21 L BUN Creatinine Glucose 126 H Calcium 6.8 L Phosphorus 2.3 L Direct Bilirubin 0.5 H GGT Lactate Dehydrogenase 687 H C-Reactive Protein 35.7 H Total Protein 4.7 L Albumin 2.6 L Globulin 2.1 L Albumin/Globulin Ratio 07/30/16 12:55 WBC RBC Hgb Hct RDW Gran % Lymph % (Auto) Gran # Lymph # Band Neutrophils % Lymphocytes % Myelocytes % WBC Morphology Toxic Granulation Dohle Bodies Potassium Chloride Carbon Dioxide 21 L BUN 29 H Creatinine 1.2 H Glucose 130 H Calcium 6.4 L Phosphorus 2.3 L Direct Bilirubin GGT Lactate Dehydrogenase 677 H C-Reactive Protein Total Protein 4.9 L Albumin 2.8 L Globulin 2.1 L Albumin/Globulin Ratio blood cultures are negative so far chest x-ray from this evening, shows moderate left basilar infiltrate and worsening small effusion. There is also atelectasis of the right base. 07/30/16:CT of the abdomen shows moderate worseningof the acute pancreatitis with increased rubin-Pancreaticfluid. No evidence of pseudocyst. Small bilateral pleural effusions. Feeding tube in satisfactory positionin the duodenum.mild uterine enlargement. Meds: Medications Acetaminophen (Tylenol) 650 mg PO Q4-6HP PRN PRN Reason: PAIN/FEVER > 101 Albuterol/Ipratropium (Duoneb) 3 ml NEB Q8 [facility] Last Admin: 08/02/16 05:56 Dose: 3 ml Chlorhexidine Gluconate (Peridex) 15 ml SWABMOUTH BID [facility] Last Admin: 08/02/16 09:53 Dose: 15 ml Dextrose (Dextrose 50%) 0 ml IV UD PRN PRN Reason: Hypoglycemia Diagnostic Test (Pha) (Accu-Chek) 1 each FS ACHS [facility] Last Admin: 08/02/16 07:30 Dose: 1 each Docusate Sodium (Colace) 100 mg PO BID [facility] Last Admin: 08/02/16 09:52 Dose: 100 mg Heparin Sodium (Porcine) (Heparin) 5,000 unit SQ Q12 [facility] Last Admin: 08/02/16 09:52 Dose: 5,000 unit Hydralazine HCl (Apresoline) 10 mg IV Q8HP PRN PRN Reason: Hypertension Hydromorphone HCl (Dilaudid) 1 - 2 mg IV Q2HP PRN PRN Reason: Pain Last Admin: 08/02/16 10:30 Dose: 1 mg Potassium Chloride 40 meq/ (Dextrose) 520 mls @ 130 mls/hr IV UD PRN PRN Reason: K+ = or < 3.5 Magnesium Sulfate (Magnesium Sulfate) 2 gm in 50 mls @ 50 mls/hr IV UD PRN PRN Reason: MG = or < 1.7 Acetaminophen (Ofirmev) 1,000 mg in 100 mls @ 200 mls/hr IV Q6HP PRN PRN Reason: PAIN/FEVER > 101 Last Infusion: 08/01/16 09:15 Dose: Infused Dextrose/Sodium Chloride (Dextrose 5%-1/2ns Iv Solution) 1,000 mls @ 75 mls/hr IV .[id number] [facility] Last Admin: 08/02/16 04:42 Dose: 75 mls/hr Piperacillin Sod/Tazobactam (Sod 3.375 gm/ Dextrose) 50 mls @ 100 mls/hr IV Q6 [facility] Last Admin: 08/02/16 05:56 Dose: Not Given Insulin Human Lispro (Humalog) 0 unit SQ ACHS ROLAN PRN Reason: Protocol Last Admin: 08/02/16 07:33 Dose: 1 unit Iron Carb/Multivit/Card Room Manager/Folic Acid (Multivitamin W/Minerals) 1 tab PO DAILY [facility] Last Admin: 08/02/16 09:52 Dose: 1 tab Lorazepam (Ativan) 0.5 mg IV Q6HP PRN PRN Reason: Spasms Last Admin: 08/01/16 06:49 Dose: 0.5 mg Ondansetron HCl (Zofran) 4 mg IV Q4-6HP PRN PRN Reason: Nausea And Vomiting Last Admin: 07/29/16 17:11 Dose: 4 mg Pantoprazole Sodium (Protonix) 40 mg IV QAMAC [facility] Last Admin: 08/02/16 07:27 Dose: 40 mg Fluticasone Furoate [Arnuity Ellipta] Inhaler 1 dose INH DAILY [facility] Last Admin: 08/01/16 08:59 Dose: 1 dose Tiotropium Br/Olodaterol Hcl [ Stiolto Respimat] Inhaler 1 dose INH BID [facility] Last Admin: 08/01/16 21:12 Dose: 1 dose Senna/Docusate Sodium (Senna Plus Tablet) 1 tab PO HS [facility] Last Admin: 08/01/16 21:13 Dose: Not Given Sodium Chloride (Saline Flush) 10 ml IV Q8 [facility] Last Admin: 08/02/16 05:56 Dose: Not Given Medical - PN: A/P - Time Spent With Patient Total time spent is greater than 50% in coordination of care (as documented) at patient's floor/unit and/or counseling patient: - Narrative A/P Narrative: #1. GI. severe and acute pancreatitis. The patient's pain appears reasonably well- controlled. CRP is improving. Total calcium has improved though phosphorus remains a bit low. LDH is improving. -lipase and amylase are back to normal on today's labs. - metformin, Crestor, losartan/hctz are all on hold. -she seems to be tolerating tube feeds at this point, so we will continue with those. -continue to keep the head of her bed elevated, to decrease the risk of aspiration. -continue to monitor bowel function. -continue Protonix for GI prophylaxis. -okay to start a trial ofclear liquids, and advance as tolerated. -her active pancreatitis appears to be resolving. I suspect her continued abdominal discomfort is probably related to ascites that was accumulated during this episode. We will start to work on diuresing her. DC IV fluids today. #2. Pulmonary. -history of reactive airways disease. -she has apparently developed a left basilar pneumonia. She is working on incentive spirometry today. Continue IV Zosyn. Duo nebs and Pulmicort added. Continue when necessary oxygen. -mobilize as able. #3. CODE STATUS: Full code. #4. DVT prophylaxis:subcutaneous heparin. #5. Neurologic. The patient's altered mental status is likely due to a medical delirium. Phenergan and trazodone were discontinued. Mister seem a bit improved today. #6. Renal. Calcium and vitamin D were supplemented, and are improving. phosphorus is being supplemented orally. #7. Hypertension-blood pressures are reasonably well-controlled. #8. Hyperlipidemia-meds are on hold for now. #9. History of type 2 diabetes. metformin is on hold. Cover with sliding scale insulin. #10. Infectious disease. -White blood cell count did increase today. This is likely due to her pneumonia. Continue to monitor. approximately 35 minutes was spent so far today, interviewing and examining the patient, reviewing plan of care with staff, as well as with her , and writing orders. Medical - PN: Qual - VTE Deep Vein Thrombosis/Pulmonary Embolism Present on Admission: No
[2016-08-02] MEDS ORDERED: hydrALAZINE 20 MG/ML VIAL IV PRN (11:44)
[2016-08-02] MEDS ORDERED: DEXTROSE 50% 50 ML VIAL IV PRN (11:44)
[2016-08-02] MEDS ORDERED: ONDANSETRON 4 MG/2 ML VIAL IV PRN (11:44)
[2016-08-02] MEDS ORDERED: ACETAMINOPHEN 325 MG TABLET PO PRN (11:44)
[2016-08-02] MEDS ORDERED: MAGNESIUM SULFATE 2 GM/50 ML BAG IV PRN (11:44)
[2016-08-02] MEDS ORDERED: POTASSIUM CHLORIDE 40 MEQ in DEXTROSE 5% IN WATER 500 ML IV PRN (11:44)
[2016-08-02] MEDS: Fluticasone Furoate [Arnuity Ellipta] Inhaler INH SCH (12:03)
[2016-08-02] MEDS: Tiotropium Br/Olodaterol Hcl [Stiolto Respimat] Inhaler INH SCH (12:03)
[2016-08-02] MEDS: ALBUTEROL SULFATE 2.5 MG/3 ML NEBULIZER NEB PRN (12:26)
[2016-08-02] MEDS ORDERED: FUROSEMIDE 20 MG/2 ML VIAL IV ONE (18:48)
[2016-08-02] MEDS: FUROSEMIDE 20 MG/2 ML VIAL IV SCH (18:50)
[2016-08-02] MEDS: ACETAMINOPHEN 1,000 MG/100 ML BOTTLE IV PRN (19:48)
[2016-08-02] MEDS: SENNOSIDES/DOCUSATE SODIUM 1 TAB TABLET PO SCH (20:41)
[2016-08-02] MEDS: NEUTRA PHOS 1 PACKET PO SCH (20:41)
[2016-08-02] MEDS: BUDESONIDE 0.5 MG/2 ML AMPUL.NEB NEB SCH (21:20)
[2016-08-03] MEDS: LORazepam 2 MG/ML VIAL IV PRN ×2 (00:19→20:42)
[2016-08-03] MEDS: HYDROmorphone 2 MG/ML SYRINGE IV PRN ×4 (02:19→19:20)
[2016-08-03] MEDS ORDERED: BISACODYL 10 MG SUPP.RECT PR PRN (03:52)
[2016-08-03] MEDS ORDERED: MAGNESIUM HYDROXIDE 30 ML ORAL.SUSP PO PRN (03:52)
[2016-08-03] MEDS ORDERED: BISACODYL 10 MG SUPP.RECT PR ONE (04:26)
[2016-08-03 05:41] LABS: Basophils # (Auto) 0 K/mcL (0.0-0.3); Basophils % (Auto) 0 % (0.0-2.0); Eosinophils # (Auto) 0.2 K/mcL (0.0-0.7); Eosinophils % (Auto) 0.9 % (0.0-7.0); Granulocytes % (Auto) 94.5 % (38.0-78.0); Lymphocytes # (Auto) 0.6 K/mcL (1.5-4.8); Lymphocytes % (Auto) 2.8 % (15.5-49.0); Mean Cell Volume 91.8 fL (80.0-100.0); Mean Corpuscular HGB Conc 32.2 g/dL (31.0-36.0); Mean Corpuscular Hemoglobin 29.6 pg (26.0-34.0); Monocytes # (Auto) 0.4 K/mcL (0.1-0.9); Monocytes % (Auto) 1.8 % (1.0-9.0); Platelet Count 215 K/mcL (140-440); RBC 3.31 M/mcL (4.00-5.20); Red Cell Distribution Width 15.9 % (11.5-14.5)
[2016-08-03] MEDS: IPRATROPIUM/ALBUTEROL 3 ML AMPUL.NEB NEB SCH ×3 (05:47→22:39)
[2016-08-03] MEDS: PIPERACILLIN SODIUM/TAZOBACTAM 3.375 GM in DEXTROSE 5% IN WATER 50 ML IV SCH ×3 (05:47→17:59)
[2016-08-03] MEDS: 0.9 % SODIUM CHLORIDE 10 ML SYRINGE IV SCH ×5 (05:47→22:39)
[2016-08-03 06:09] LABS: ALT/SGPT 15 U/l (0-40); Albumin 2.1 gm/dL (3.2-5.2); Albumin/Globulin Ratio 0.7 (1.0-2.3); Alkaline Phosphatase 99 U/L (39-117); Bilirubin,Direct 0.5 mg/dL (0.0-0.3); Blood Urea Nitrogen 22 mg/dl (8-23); Gamma Glutamyl Transpeptidase 61 U/L (5-36); Magnesium 1.9 mg/dL (1.6-2.5); Phosphorous 2.6 mg/dL (2.7-4.5); Uric Acid 2.9 mg/dL (2.5-8.0)
[2016-08-03] MEDS: INSULIN LISPRO 1 UNIT/0.01 ML UNIT SQ SCH ×4 (08:08→20:44)
[2016-08-03] MEDS: PANTOPRAZOLE 40 MG VIAL IV SCH (08:12)
[2016-08-03] MEDS: HEPARIN 5,000 UNIT/ML VIAL SQ SCH ×2 (08:37→20:42)
[2016-08-03] MEDS: NEUTRA PHOS 1 PACKET PO SCH ×2 (08:37→20:43)
[2016-08-03] MEDS: MULTIVIT,THER IRON,CA,FA & MIN 1 TABLET PO SCH (08:37)
[2016-08-03] MEDS: FUROSEMIDE 20 MG/2 ML VIAL IV SCH ×2 (08:37→20:42)
[2016-08-03] MEDS: CHLORHEXIDINE GLUCONATE 1 ML ORAL.SOL SWABMOUTH SCH ×2 (08:38→20:43)
[2016-08-03] MEDS: DOCUSATE SODIUM 100 MG CAPSULE PO SCH ×2 (08:39→20:42)
[2016-08-03] MEDS ORDERED: VANCOMYCIN PER PHARMACY IV ONE (08:59)
[2016-08-03] MEDS: ALBUTEROL SULFATE 2.5 MG/3 ML NEBULIZER NEB PRN (09:26)
[2016-08-03] MEDS: BUDESONIDE 0.5 MG/2 ML AMPUL.NEB NEB SCH ×2 (09:26→20:43)
[2016-08-03] MEDS: VANCOMYCIN 1,500 MG in 0.9 % SODIUM CHLORIDE 500 ML IV SCH (11:30)
[2016-08-03 12:45] LABS: Appearance,Urine HAZY; Bilirubin,Urine NEG (NEG); Color,Urine YELLOW; Glucose,Urine (UA) NEGATIVE (NEG); Leukocyte Esterase,Urine NEG /uL (NEG); Nitrate,Urine NEG (NEG); Protein,Urine NEG (NEG); Specific Gravity,Urine 1.012 (1.000-1.035); Urine Blood NEG mg/dL (<0.03); Urobilinogen,Urine NEG (NEG)
--- NOTE | 2016-08-03 13:32 | Internal Med Progress Note ---
Medical - PN: Subj Patient information: Note initiated : 08/03/16 at 1:32 pm Service Date, if different from initiated Date: [] Patient: Olinda Farris 75 y/o F admitted on 07/27/16 for N/V, Severe Pancreatitis. Chief Complaint: [] Interval history: History of present illness; 07/27- patient admitted with acute pancreatitis. Unclear etiology.History of alcoholism. CT no evidence of CBD dilation or cholelithiasis. patient olmesartan and statin which may be implicated in pancreatitis however has been on it for a while. home meds on hold. initial CRP 2.2. Lipase 4800. White count 18,000. Significant abdominal pain requiring IV opioids. Continue NPO/ antiemetics crystalloids. Admit to medical floor. [place] score 12 mandating inpatient hospitalization. Low [place] score/CT severity index for acute pancreatitis. Started on Primaxin. await Procalcitonin 07/28- worsening leukocytosis at 26,000 with bandemia. CRP is 17.8. Continue daily serial trending. Enteral tube feeding to start in 24 hours. Discussed with patient and family. Agreeable for [place]. continue crystalloids bolus and maintained 125-150 cc an hour due to extensive third spacing and pancreatic Inflammation. repeat CT scan 72 hours for interval change. patient now needing 3 L oxygen. High-risk development of ARDS . Underlying severe pancreatitis. dC Primaxin in light of normal pro-calcitonin levels. Continue close monitoring. Persistent sirs with tachycardia and tachypnea. continue electrolyte replacement including magnesium and phosphorus. also discussed possible transfer to tertiary Center if clinical deterioration noted. family is appreciative of care. 08/01/16: clinically, the patient has been fairly stable for the last day or so. She continues to have some intermittent delirium but overall pain appears to be better controlled. She also appears to be tolerating tube feedings so far, without significant increase in pain. tube feed-Residuals are acceptable. She did have 1 small bowel movement, but not much activity since then. -his evening, she has been complaining of increased work of breathing. She does have more wheezing and rales on exam. review of her home medications to show that she is generally on a long-acting bronchodilator plus tiotropium plus a steroid inhaler. -the patient had significant hypocalcemia on admission, but that has been corrected. CRP and white blood cell count have been improving. Acute renal dysfunction also appears to be improving. -Follow up CT scan did show worsening of her pancreatitis, but no obvious cyst formation. -otherwise,she denies significant pain at this time, although staff notes that she tends to ask for pain medications every 2-4 hours. Some of her pain is more in her back then in her abdomen. Reliability of her history is somewhat suspect, but she denies fever or chills, sore throat. She is having some coughing, and some wheezing, and says she has some intermittent shortness of breath. She denies significant abdominal pain at this time, and denies nausea or vomiting. However during her interview, she is picking at the oximeter on her finger, and reports she cannot quite figure out why she can't get it off. 08/02/16: Today, the patient is a little more alert. She is required a little bit less pain medicine overnight than the day before. she is having less anterior abdominal and left upper quadrant pain now, but continues to complain of discomfort in her bilateral sides. Nurses were able to get her up to a chair for quite some time today, which she tolerated reasonably well. -She is tolerating her tube feeds quite well, and residuals have been 0. Amylase and lipase are back to normal on today's labs. -chest x-ray yesterday was consistent with a left basilar pneumonia, also consistent with her increased cough and shortness of breath. She has been working harder today on incentive spirometry. Zosyn IV was started last night, and nebulized bronchodilatorswere orderedon a scheduled basis as well as nebulized Pulmicort. otherwise, she denies fever or chills, chest pain or palpitations. Her cough is mostly nonproductive. She denies nausea or vomiting or diarrhea. Iqbal catheter remains in place. 08/03/16:the patient continues to be more alert today and has been sitting up in a chair for 2 hours. She does continue to complain of pain however, mainly in her sides and flank areas. she denies fever or chills, significant cough or shortness of breath or chest pain. She denies nausea or vomiting. She did have a small stool again today. tube feed Residuals continued to be around 0 She did tolerate a clear liquid diet. A very low-grade fever was noted this morning and her white blood cell count has bumped up again. she does not report any other obvious sources of infection. past medical history is notable for hypertension, hyperlipidemia, reactive airways disease, type 2 diabetes. Home medications included metformin, titropium/olodaterol Inhaler,rosuvastatin, losartan with HCTZ, fluticasone inhaler. - Constitutional Vitals: Vital Signs Temp Pulse Resp BP Pulse Ox 98.1 F 98 H 19 135/79 95 08/03/16 11:58 08/03/16 11:58 08/03/16 11:58 08/03/16 11:58 08/03/16 11:58 Period Temp Pulse Resp BP Sys/Johnson Pulse Ox Last 24 Hr 97.0 F-99.8 F 96-109 16-24 128-154/63-79 94-96 Intake and Output 08/02/16 08/03/16 08/03/16 21:59 05:59 13:59 Intake Total 2167 / 2167 1132 / 1132 610 / 610 Output Total 615 / 615 950 / 950 400 / 400 Balance 1552 / 1552 182 / 182 210 / 210 Weight 242 lb 4.8 oz Intake & Output: Intake & Output 08/02/16 08/03/16 08/03/16 21:59 05:59 13:59 Intake Total 2167 / 2167 1132 / 1132 610 / 610 Output Total 615 / 615 950 / 950 400 / 400 Balance 1552 / 1552 182 / 182 210 / 210 Weight 242 lb 4.8 oz Intake: IV 461 / 461 50 / 50 50 / 50 Dextrose 5%-1/2Ns IV 311 / 311 Solution 1,000 ml @ 75 mls/hr IV .[id number] ROLAN Rx #:[id number] Dextrose 5% in Water 50 50 / 50 50 / 50 50 / 50 ml @ 100 mls/hr IV Q6 ROLAN with Zosyn 3.375 gm Rx#: [id number] Oral 510 / 510 240 / 240 530 / 530 Tube Feeding 729 / 729 448 / 448 GI Tube Flush 467 / 467 394 / 394 30 / 30 Output: Urine Catheter Amount 615 / 615 950 / 950 400 / 400 Other: Meal Dinner Breakfast Percent of Meal Consumed 50% 50% Feeding Ability Assist with Tray Set Up Exam: On exam, she is more alert than yesterday. she has been sitting up in a chair for 2 hours, and is now grimacing, saying she would preferred to lay downbecause of the pain in her sides. Neck is supple without obvious JVD. Cardiac exam shows regular rate and rhythm. She remains slightly tachycardic. Lungs: Show diminished breath sounds at the bases, but I do not hear rales, rhonchi, or wheezes at this time. There is no sensory muscle use. Abdomen: Is quite protuberant, but generally nontender to palpation. Bowel sounds are active. Iqbal catheter is draining reddish brown urine. Extremities: Continue to show dependent edema. neurologic exam: Her level of alertness seems similar to today. Motor exam continues nonfocal. Medical - PN: Obj Da - Labs CBC & Chem 7: 08/03/16 04:05 08/03/16 04:05 Labs: Abnormal Lab Results 08/03/16 08/03/16 08/02/16 04:05 04:05 04:05 WBC 20.1 H 16.9 H RBC 3.31 L 3.51 L Hgb 9.8 L 10.2 L Hct 30.4 L 32.4 L RDW 15.9 H 16.0 H Gran % 94.5 H 93.4 H Lymph % (Auto) 2.8 L 3.6 L Gran # 19.0 H 15.8 H Lymph # 0.6 L 0.6 L Band Neutrophils % Lymphocytes % Myelocytes % WBC Morphology Toxic Granulation Dohle Bodies Glucose 146 H Calcium 7.8 L Phosphorus 2.6 L Direct Bilirubin 0.5 H GGT 61 H Lactate Dehydrogenase 419 H C-Reactive Protein Total Protein 5.2 L Albumin 2.1 L Globulin Albumin/Globulin Ratio 0.7 L 08/02/16 08/01/16 08/01/16 04:05 04:05 04:05 WBC 12.4 H RBC 3.48 L Hgb 10.1 L Hct 32.0 L RDW 15.7 H Gran % Lymph % (Auto) Gran # Lymph # Band Neutrophils % 41 H Lymphocytes % 7 L Myelocytes % 2 H WBC Morphology Abnorm A Toxic Granulation 1+ A Dohle Bodies Few A Glucose 161 H 138 H Calcium 8.0 L 7.4 L Phosphorus 2.3 L 2.2 L Direct Bilirubin 0.4 H 0.5 H GGT 41 H Lactate Dehydrogenase 441 H 565 H C-Reactive Protein 30.5 H 31.7 H Total Protein 5.5 L 4.5 L Albumin 2.2 L 2.4 L Globulin 2.1 L Albumin/Globulin Ratio 0.7 L urinalysis from August 03: Is essentially normal 07/27/16:blood cultures are negative so far chest x-ray from this evening, shows moderate left basilar infiltrate and worsening small effusion. There is also atelectasis of the right base. 07/30/16:CT of the abdomen shows moderate worsening of the acute pancreatitis with increased rubin-Pancreatic fluid. No evidence of pseudocyst. Small bilateral pleural effusions. Feeding tube in satisfactory position in the duodenum.mild uterine enlargement. Meds: Medications Acetaminophen (Tylenol) 650 mg PO Q4-6HP PRN PRN Reason: PAIN/FEVER > 101 Albuterol Sulfate (Ventolin) 2.5 mg NEB Q3HP PRN PRN Reason: Shortness Of Breath Last Admin: 08/03/16 09:26 Dose: 2.5 mg Albuterol/Ipratropium (Duoneb) 3 ml NEB Q8 [facility] Last Admin: 08/03/16 05:47 Dose: 3 ml Bisacodyl (Dulcolax) 10 mg NM Q2-3DAYS PRN PRN Reason: Constipation Budesonide (Pulmicort) 0.5 mg NEB Q12 [facility] Last Admin: 08/03/16 09:26 Dose: 0.5 mg Chlorhexidine Gluconate (Peridex) 15 ml SWABMOUTH BID [facility] Last Admin: 08/03/16 08:38 Dose: 15 ml Dextrose (Dextrose 50%) 0 ml IV UD PRN PRN Reason: Hypoglycemia Diagnostic Test (Pha) (Accu-Chek) 1 each FS ACHS [facility] Last Admin: 08/03/16 12:20 Dose: 1 each Docusate Sodium (Colace) 100 mg PO BID [facility] Last Admin: 08/03/16 08:39 Dose: 100 mg Furosemide (Lasix) 20 mg IV DAILY [facility] Last Admin: 08/03/16 08:37 Dose: 20 mg Heparin Sodium (Porcine) (Heparin) 5,000 unit SQ Q12 [facility] Last Admin: 08/03/16 08:37 Dose: 5,000 unit Hydralazine HCl (Apresoline) 10 mg IV Q8HP PRN PRN Reason: Hypertension Hydromorphone HCl (Dilaudid) 1 - 2 mg IV Q2HP PRN PRN Reason: Pain Last Admin: 08/03/16 07:59 Dose: 2 mg Potassium Chloride 40 meq/ (Dextrose) 520 mls @ 130 mls/hr IV UD PRN PRN Reason: K+ = or < 3.5 Magnesium Sulfate (Magnesium Sulfate) 2 gm in 50 mls @ 50 mls/hr IV UD PRN PRN Reason: MG = or < 1.7 Acetaminophen (Ofirmev) 1,000 mg in 100 mls @ 200 mls/hr IV Q6HP PRN PRN Reason: PAIN/FEVER > 101 Last Infusion: 08/02/16 20:29 Dose: Infused Piperacillin Sod/Tazobactam (Sod 3.375 gm/ Dextrose) 50 mls @ 100 mls/hr IV Q6 [facility] Last Admin: 08/03/16 12:22 Dose: 100 mls/hr Vancomycin HCl 1,500 mg/ (Sodium Chloride) 500 mls @ 333.3 mls/hr IV Q24H [facility] Last Admin: 08/03/16 11:30 Dose: 333.3 mls/hr Insulin Human Lispro (Humalog) 0 unit SQ ACHS [facility] PRN Reason: Protocol Last Admin: 08/03/16 12:44 Dose: Not Given Iron Carb/Multivit/Garvin/Folic Acid (Multivitamin W/Minerals) 1 tab PO DAILY [facility] Last Admin: 08/03/16 08:37 Dose: 1 tab Lorazepam (Ativan) 0.5 mg IV Q6HP PRN PRN Reason: Spasms Last Admin: 08/03/16 00:19 Dose: 0.5 mg Magnesium Hydroxide (Milk Of Magnesia) 30 ml PO DAILYP PRN PRN Reason: Constipation Ondansetron HCl (Zofran) 4 mg IV Q4-6HP PRN PRN Reason: Nausea And Vomiting Pantoprazole Sodium (Protonix) 40 mg IV QAMAC [facility] Last Admin: 08/03/16 08:12 Dose: 40 mg Potassium/Phosphorus/Sodium (Neutra Phos) 1 packet PO BID [facility] Last Admin: 08/03/16 08:37 Dose: 1 packet Senna/Docusate Sodium (Senna Plus Tablet) 1 tab PO HS [facility] Last Admin: 08/02/16 20:41 Dose: 1 tab Sodium Chloride (Saline Flush) 10 ml IV Q8 ROLAN Last Admin: 08/03/16 12:29 Dose: 10 ml Medical - PN: A/P - Time Spent With Patient Total time spent is greater than 50% in coordination of care (as documented) at patient's floor/unit and/or counseling patient: - Narrative A/P Narrative: #1. GI. severe and acute pancreatitis. The patient's pain appears reasonably well- controlled. CRP is improving. Total calcium has improved though phosphorus remains a bit low. LDH is improving. -lipase and amylase are back to normal . - metformin, Crestor, losartan/hctz are all on hold. -she seems to be tolerating tube feeds at this point, so we will continue with those. -continue to keep the head of her bed elevated, to decrease the risk of aspiration. -continue to monitor bowel function. -continue Protonix for GI prophylaxis. -okay to increase her diet to full liquids and the weekend and advance as tolerated. if she is tolerating a good amount, we can discontinue the tube feeds. -her active pancreatitis appears to be resolving. I suspect her continued abdominal discomfort is probably related to ascites that was accumulated during this episode. we'll increase her Lasix to try to start moving some fluid. #2. Pulmonary/Infectious disease.. -history of reactive airways disease. -she has apparently developed a left basilar pneumonia. She is working on incentive spirometry today. Continue IV Zosyn. Duo nebs and Pulmicort added. Continue when necessary oxygen. -mobilize as able. -her white blood cell count did come up again today, and she does have a low- grade fever again. I will add vancomycin to be sure that we have a staph infection covered. Urinalysis does not show a UTI. If these things are not improved by tomorrow, I discussed with the patient and her family that we might need to get a follow-up CT scan of her belly. #3. CODE STATUS: Full code. #4. DVT prophylaxis:subcutaneous heparin. #5. Neurologic. The patient's altered mental status is likely due to a medical delirium. Phenergan and trazodone were discontinued. #6. Renal. Calcium and vitamin D were supplemented, and are improving. phosphorus is being supplemented orally. #7. Hypertension-blood pressures are reasonably well-controlled. #8. Hyperlipidemia-meds are on hold for now. #9. History of type 2 diabetes. metformin is on hold. Cover with sliding scale insulin. accu-Cheks are in a reasonable range today. approximately 35 minutes was spent so far today, interviewing and examining the patient, reviewing plan of care with staff, as well as with her , and writing orders. Medical - PN: Qual - VTE Deep Vein Thrombosis/Pulmonary Embolism Present on Admission: No
[2016-08-03] MEDS: SENNOSIDES/DOCUSATE SODIUM 1 TAB TABLET PO SCH (20:42)
[2016-08-04] MEDS: HYDROmorphone 2 MG/ML SYRINGE IV PRN ×5 (00:05→20:12)
[2016-08-04] MEDS: PIPERACILLIN SODIUM/TAZOBACTAM 3.375 GM in DEXTROSE 5% IN WATER 50 ML IV SCH ×4 (00:05→20:15)
[2016-08-04] MEDS: IPRATROPIUM/ALBUTEROL 3 ML AMPUL.NEB NEB SCH ×3 (04:29→20:17)
[2016-08-04] MEDS: 0.9 % SODIUM CHLORIDE 10 ML SYRINGE IV SCH ×2 (04:30→17:28)
[2016-08-04 06:07] LABS: Basophils # (Auto) 0 K/mcL (0.0-0.3); Basophils % (Auto) 0.2 % (0.0-2.0); Eosinophils # (Auto) 0 K/mcL (0.0-0.7); Eosinophils % (Auto) 0.2 % (0.0-7.0); Granulocytes % (Auto) 94.7 % (38.0-78.0); Lymphocytes # (Auto) 0.7 K/mcL (1.5-4.8); Lymphocytes % (Auto) 3.6 % (15.5-49.0); Mean Cell Volume 90.8 fL (80.0-100.0); Mean Corpuscular HGB Conc 32.1 g/dL (31.0-36.0); Mean Corpuscular Hemoglobin 29.1 pg (26.0-34.0); Monocytes # (Auto) 0.2 K/mcL (0.1-0.9); Monocytes % (Auto) 1.3 % (1.0-9.0); Platelet Count 220 K/mcL (140-440); RBC 3.41 M/mcL (4.00-5.20); Red Cell Distribution Width 15.9 % (11.5-14.5)
[2016-08-04] MEDS: ALBUTEROL SULFATE 2.5 MG/3 ML NEBULIZER NEB PRN (08:41)
[2016-08-04] MEDS: BUDESONIDE 0.5 MG/2 ML AMPUL.NEB NEB SCH ×2 (09:32→20:15)
[2016-08-04] MEDS: PANTOPRAZOLE 40 MG VIAL IV SCH (11:07)
[2016-08-04] MEDS: INSULIN LISPRO 1 UNIT/0.01 ML UNIT SQ SCH ×4 (11:07→20:14)
[2016-08-04] MEDS: MULTIVIT,THER IRON,CA,FA & MIN 1 TABLET PO SCH (11:08)
[2016-08-04] MEDS: HEPARIN 5,000 UNIT/ML VIAL SQ SCH ×2 (11:08→20:14)
[2016-08-04] MEDS: VANCOMYCIN 1,500 MG in 0.9 % SODIUM CHLORIDE 500 ML IV SCH (11:08)
[2016-08-04] MEDS: DOCUSATE SODIUM 100 MG CAPSULE PO SCH ×2 (11:08→20:14)
[2016-08-04] MEDS: NEUTRA PHOS 1 PACKET PO SCH ×2 (11:08→20:15)
[2016-08-04] MEDS: FUROSEMIDE 40 MG/4 ML VIAL IV SCH ×2 (11:37→20:14)
[2016-08-04] MEDS: CHLORHEXIDINE GLUCONATE 1 ML ORAL.SOL SWABMOUTH SCH ×2 (12:21→20:15)
--- NOTE | 2016-08-04 14:04 | Internal Med Progress Note ---
Medical - PN: Subj Patient information: Note initiated : 08/04/16 at 2:04 pm Service Date, if different from initiated Date: [] Patient: Olinda Farris 75 y/o F admitted on 07/27/16 for N/V, Severe Pancreatitis. Chief Complaint: [] Interval history: History of present illness; 07/27- patient admitted with acute pancreatitis. Unclear etiology.History of alcoholism. CT no evidence of CBD dilation or cholelithiasis. patient olmesartan and statin which may be implicated in pancreatitis however has been on it for a while. home meds on hold. initial CRP 2.2. Lipase 4800. White count 18,000. Significant abdominal pain requiring IV opioids. Continue NPO/ antiemetics crystalloids. Admit to medical floor. [place] score 12 mandating inpatient hospitalization. Low [place] score/CT severity index for acute pancreatitis. Started on Primaxin. await Procalcitonin 07/28- worsening leukocytosis at 26,000 with bandemia. CRP is 17.8. Continue daily serial trending. Enteral tube feeding to start in 24 hours. Discussed with patient and family. Agreeable for [place]. continue crystalloids bolus and maintained 125-150 cc an hour due to extensive third spacing and pancreatic Inflammation. repeat CT scan 72 hours for interval change. patient now needing 3 L oxygen. High-risk development of ARDS . Underlying severe pancreatitis. dC Primaxin in light of normal pro-calcitonin levels. Continue close monitoring. Persistent sirs with tachycardia and tachypnea. continue electrolyte replacement including magnesium and phosphorus. also discussed possible transfer to tertiary Center if clinical deterioration noted. family is appreciative of care. 08/01/16: clinically, the patient has been fairly stable for the last day or so. She continues to have some intermittent delirium but overall pain appears to be better controlled. She also appears to be tolerating tube feedings so far, without significant increase in pain. tube feed-Residuals are acceptable. She did have 1 small bowel movement, but not much activity since then. -his evening, she has been complaining of increased work of breathing. She does have more wheezing and rales on exam. review of her home medications to show that she is generally on a long-acting bronchodilator plus tiotropium plus a steroid inhaler. -the patient had significant hypocalcemia on admission, but that has been corrected. CRP and white blood cell count have been improving. Acute renal dysfunction also appears to be improving. -Follow up CT scan did show worsening of her pancreatitis, but no obvious cyst formation. -otherwise,she denies significant pain at this time, although staff notes that she tends to ask for pain medications every 2-4 hours. Some of her pain is more in her back then in her abdomen. Reliability of her history is somewhat suspect, but she denies fever or chills, sore throat. She is having some coughing, and some wheezing, and says she has some intermittent shortness of breath. She denies significant abdominal pain at this time, and denies nausea or vomiting. However during her interview, she is picking at the oximeter on her finger, and reports she cannot quite figure out why she can't get it off. 08/02/16: Today, the patient is a little more alert. She is required a little bit less pain medicine overnight than the day before. she is having less anterior abdominal and left upper quadrant pain now, but continues to complain of discomfort in her bilateral sides. Nurses were able to get her up to a chair for quite some time today, which she tolerated reasonably well. -She is tolerating her tube feeds quite well, and residuals have been 0. Amylase and lipase are back to normal on today's labs. -chest x-ray yesterday was consistent with a left basilar pneumonia, also consistent with her increased cough and shortness of breath. She has been working harder today on incentive spirometry. Zosyn IV was started last night, and nebulized bronchodilatorswere orderedon a scheduled basis as well as nebulized Pulmicort. otherwise, she denies fever or chills, chest pain or palpitations. Her cough is mostly nonproductive. She denies nausea or vomiting or diarrhea. Iqbal catheter remains in place. 08/03/16:the patient continues to be more alert today and has been sitting up in a chair for 2 hours. She does continue to complain of pain however, mainly in her sides and flank areas. she denies fever or chills, significant cough or shortness of breath or chest pain. She denies nausea or vomiting. She did have a small stool again today. tube feed Residuals continued to be around 0 She did tolerate a clear liquid diet. A very low-grade fever was noted this morning and her white blood cell count has bumped up again. she does not report any other obvious sources of infection. 08/04/16: today, the patient says she is definitely feeling better. She is having less abdominal pain, and is feeling more alert. She did tolerate a full liquid diet for breakfast. Unfortunately we did not have much success with trying to diurese her yesterday. er white blood cell count remains elevated at 19,000, with an absolute granulocyte count of 18,000, although this is slightly improved compared to yesterday. she denies subjective fever or chills significant cough, chest pain, increase over her baseline shortness of breath, nausea or vomiting, diarrhea or constipation. She continues with both the feeding tube and a Iqbal catheter. past medical history is notable for hypertension, hyperlipidemia, reactive airways disease, type 2 diabetes. Home medications included metformin, titropium/olodaterol Inhaler,rosuvastatin, losartan with HCTZ, fluticasone inhaler. - Constitutional Vitals: Vital Signs Temp Pulse Resp BP Pulse Ox 98.8 F 96 H 18 121/60 95 08/04/16 12:00 08/04/16 12:00 08/04/16 12:00 08/04/16 12:00 08/04/16 12:00 Period Temp Pulse Resp BP Sys/Johnson Pulse Ox Last 24 Hr 97.0 F-99.6 F 91-109 11-26 121-155/60-86 92-96 Intake and Output 08/04/16 08/04/16 08/04/16 05:59 13:59 21:59 Intake Total 530 / 530 Output Total 1300 / 1300 Balance -770 / -770 Intake & Output: Intake & Output 08/04/16 08/04/16 08/04/16 05:59 13:59 21:59 Intake Total 530 / 530 Output Total 1300 / 1300 Balance -770 / -770 Intake: IV 80 / 80 Dextrose 5% in Water 50 ml @ 100 mls/hr IV Q6 ROLAN with Zosyn 3.375 gm Rx#: [id number] Sodium Chloride 0.9% 500 80 / 80 ml @ 333.3 mls/hr IV Q24H ROLAN with Vancomycin 1, 500 mg Rx#:[id number] Oral 200 / 200 Tube Feeding GI Tube Flush 250 / 250 Output: Urine Catheter Amount 1300 / 1300 Other: Meal Breakfast Percent of Meal Consumed 20 Exam: on exam, she is awake and alert, and is lying in bed. Her daughter is at the bedside. Neck shows no obvious JVD. Cardiac exam shows regular rate and rhythm, with slight tachycardia. Lungs:She has fairly decreased breath sounds at the bases, and some very soft wheezes heard it and it expiration on the right side. Abdomen: There is very mild tenderness with deep palpation of her epigastric area, but no guarding or rebound. Bowel sounds are active. Extremities: Continue to show significant dependent edema. Neurologic: The patient appears alert and oriented, and exam is grossly nonfocal Medical - PN: Obj Da - Labs CBC & Chem 7: 08/04/16 04:10 08/03/16 04:05 Labs: Abnormal Lab Results 08/04/16 08/03/16 08/03/16 04:10 04:05 04:05 WBC 19.0 H 20.1 H RBC 3.41 L 3.31 L Hgb 9.9 L 9.8 L Hct 30.9 L 30.4 L RDW 15.9 H 15.9 H Gran % 94.7 H 94.5 H Lymph % (Auto) 3.6 L 2.8 L Gran # 18.0 H 19.0 H Lymph # 0.7 L 0.6 L Glucose 146 H Calcium 7.8 L Phosphorus 2.6 L Direct Bilirubin 0.5 H GGT 61 H Lactate Dehydrogenase 419 H C-Reactive Protein Total Protein 5.2 L Albumin 2.1 L Albumin/Globulin Ratio 0.7 L 08/02/16 08/02/16 04:05 04:05 WBC 16.9 H RBC 3.51 L Hgb 10.2 L Hct 32.4 L RDW 16.0 H Gran % 93.4 H Lymph % (Auto) 3.6 L Gran # 15.8 H Lymph # 0.6 L Glucose 161 H Calcium 8.0 L Phosphorus 2.3 L Direct Bilirubin 0.4 H GGT 41 H Lactate Dehydrogenase 441 H C-Reactive Protein 30.5 H Total Protein 5.5 L Albumin 2.2 L Albumin/Globulin Ratio 0.7 L urinalysis from August 03: Is essentially normal 07/27/16:blood cultures are negative so far 08/01 :chest x-ray from this evening, shows moderate left basilar infiltrate and worsening small effusion. There is also atelectasis of the right base. 07/30/16:CT of the abdomen shows moderate worsening of the acute pancreatitis with increased rubin-Pancreatic fluid. No evidence of pseudocyst. Small bilateral pleural effusions. Feeding tube in satisfactory position in the duodenum.mild uterine enlargement. Meds: Medications Acetaminophen (Tylenol) 650 mg PO Q4-6HP PRN PRN Reason: PAIN/FEVER > 101 Albuterol Sulfate (Ventolin) 2.5 mg NEB Q3HP PRN PRN Reason: Shortness Of Breath Last Admin: 08/04/16 08:41 Dose: 2.5 mg Albuterol/Ipratropium (Duoneb) 3 ml NEB Q8 [facility] Last Admin: 08/04/16 04:29 Dose: 3 ml Bisacodyl (Dulcolax) 10 mg CO Q2-3DAYS PRN PRN Reason: Constipation Budesonide (Pulmicort) 0.5 mg NEB Q12 [facility] Last Admin: 08/04/16 09:32 Dose: 0.5 mg Chlorhexidine Gluconate (Peridex) 15 ml SWABMOUTH BID [facility] Last Admin: 08/04/16 12:21 Dose: 15 ml Dextrose (Dextrose 50%) 0 ml IV UD PRN PRN Reason: Hypoglycemia Diagnostic Test (Pha) (Accu-Chek) 1 each FS ACHS [facility] Last Admin: 08/04/16 11:45 Dose: Not Given Docusate Sodium (Colace) 100 mg PO BID [facility] Last Admin: 08/04/16 11:08 Dose: 100 mg Furosemide (Lasix) 40 mg IV Q12 [facility] Last Admin: 08/04/16 11:37 Dose: 40 mg Heparin Sodium (Porcine) (Heparin) 5,000 unit SQ Q12 [facility] Last Admin: 08/04/16 11:08 Dose: 5,000 unit Hydralazine HCl (Apresoline) 10 mg IV Q8HP PRN PRN Reason: Hypertension Hydromorphone HCl (Dilaudid) 1 - 2 mg IV Q2HP PRN PRN Reason: Pain Last Admin: 08/04/16 12:18 Dose: 1 mg Potassium Chloride 40 meq/ (Dextrose) 520 mls @ 130 mls/hr IV UD PRN PRN Reason: K+ = or < 3.5 Magnesium Sulfate (Magnesium Sulfate) 2 gm in 50 mls @ 50 mls/hr IV UD PRN PRN Reason: MG = or < 1.7 Acetaminophen (Ofirmev) 1,000 mg in 100 mls @ 200 mls/hr IV Q6HP PRN PRN Reason: PAIN/FEVER > 101 Last Infusion: 08/02/16 20:29 Dose: Infused Piperacillin Sod/Tazobactam (Sod 3.375 gm/ Dextrose) 50 mls @ 100 mls/hr IV Q6 [facility] Last Admin: 08/04/16 04:25 Dose: 100 mls/hr Vancomycin HCl 1,500 mg/ (Sodium Chloride) 500 mls @ 333.3 mls/hr IV Q24H [facility] Last Infusion: 08/04/16 11:45 Dose: 250 mls/hr Insulin Human Lispro (Humalog) 0 unit SQ ACHS [facility] PRN Reason: Protocol Last Admin: 08/04/16 11:45 Dose: Not Given Iron Carb/Multivit/[place]/Folic Acid (Multivitamin W/Minerals) 1 tab PO DAILY [facility] Last Admin: 08/04/16 11:08 Dose: 1 tab Lorazepam (Ativan) 0.5 mg IV Q6HP PRN PRN Reason: Spasms Last Admin: 08/03/16 20:42 Dose: 0.5 mg Magnesium Hydroxide (Milk Of Magnesia) 30 ml PO DAILYP PRN PRN Reason: Constipation Ondansetron HCl (Zofran) 4 mg IV Q4-6HP PRN PRN Reason: Nausea And Vomiting Pantoprazole Sodium (Protonix) 40 mg IV QAMAC [facility] Last Admin: 08/04/16 11:07 Dose: 40 mg Potassium/Phosphorus/Sodium (Neutra Phos) 1 packet PO BID [facility] Last Admin: 08/04/16 11:08 Dose: 1 packet Senna/Docusate Sodium (Senna Plus Tablet) 1 tab PO HS [facility] Last Admin: 08/03/16 20:42 Dose: 1 tab Sodium Chloride (Saline Flush) 10 ml IV Q8 [facility] Last Admin: 08/04/16 04:30 Dose: 10 ml Medical - PN: A/P - Time Spent With Patient Total time spent is greater than 50% in coordination of care (as documented) at patient's floor/unit and/or counseling patient: - Narrative A/P Narrative: #1. GI. severe and acute pancreatitis. The patient's pain appears reasonably well- controlled. CRP is improving. Total calcium has improved though phosphorus remains a bit low. LDH is improving. -lipase and amylase are back to normal . - metformin, Crestor, losartan/hctz are all on hold. -she seems to be tolerating tube feeds at this point, so we will continue with those. -continue to keep the head of her bed elevated, to decrease the risk of aspiration. -continue to monitor bowel function. -continue Protonix for GI prophylaxis. -advanced to soft diet this afternoon, and if tolerated, we will discontinue the feeding tube. -her active pancreatitis appears to be resolving. I suspect her continued abdominal discomfort is probably related to ascites that was accumulated during this episode. we'll increase her Lasix to try to start moving some fluid. #2. Pulmonary/Infectious disease.. -history of reactive airways disease. -she has apparently developed a left basilar pneumonia. She is working on incentive spirometry today. Continue IV Zosyn. Duo nebs and Pulmicort added. Continue when necessary oxygen. leukocytosis is somewhat improved today. continue Zosyn and vancomycin. -mobilize as able. #3. CODE STATUS: Full code. #4. DVT prophylaxis:subcutaneous heparin. #5. Neurologic. The patient's altered mental status is likely due to a medical delirium. this appears to be improving. Phenergan and trazodone were discontinued. #6. Renal. Calcium and vitamin D were supplemented, and are improving. phosphorus is being supplemented orally. #7. Hypertension-blood pressures are reasonably well-controlled. #8. Hyperlipidemia-meds are on hold for now. #9. History of type 2 diabetes. metformin is on hold. Cover with sliding scale insulin. accu-Cheks are in a reasonable range today, ranging from 132- 169. approximately 25 minutes was spent so far today, interviewing and examining the patient, reviewing plan of care with staff, as well as with her daughter, and writing orders. Medical - PN: Qual - VTE Deep Vein Thrombosis/Pulmonary Embolism Present on Admission: No
[2016-08-04] MEDS: FUROSEMIDE 20 MG/2 ML VIAL IV SCH (14:50)
[2016-08-04] MEDS: SENNOSIDES/DOCUSATE SODIUM 1 TAB TABLET PO SCH (20:15)
[2016-08-04] MEDS: LORazepam 2 MG/ML VIAL IV PRN (20:26)
[2016-08-04] MEDS ORDERED: FUROSEMIDE 100 MG/10 ML VIAL IV ONE (21:28)
[2016-08-05] MEDS: HYDROmorphone 2 MG/ML SYRINGE IV PRN ×3 (01:04→19:16)
[2016-08-05] MEDS: 0.9 % SODIUM CHLORIDE 10 ML SYRINGE IV SCH ×4 (01:05→20:41)
[2016-08-05] MEDS: PIPERACILLIN SODIUM/TAZOBACTAM 3.375 GM in DEXTROSE 5% IN WATER 50 ML IV SCH ×5 (01:06→23:10)
[2016-08-05] MEDS: IPRATROPIUM/ALBUTEROL 3 ML AMPUL.NEB NEB SCH ×3 (05:11→21:20)
[2016-08-05 05:33] LABS: Basophils # (Auto) 0 K/mcL (0.0-0.3); Basophils % (Auto) 0.2 % (0.0-2.0); Eosinophils # (Auto) 0 K/mcL (0.0-0.7); Eosinophils % (Auto) 0.2 % (0.0-7.0); Granulocytes % (Auto) 93.3 % (38.0-78.0); Lymphocytes # (Auto) 0.8 K/mcL (1.5-4.8); Lymphocytes % (Auto) 4.6 % (15.5-49.0); Mean Cell Volume 90.8 fL (80.0-100.0); Mean Corpuscular HGB Conc 32.1 g/dL (31.0-36.0); Mean Corpuscular Hemoglobin 29.2 pg (26.0-34.0); Monocytes # (Auto) 0.3 K/mcL (0.1-0.9); Monocytes % (Auto) 1.7 % (1.0-9.0); Platelet Count 255 K/mcL (140-440); RBC 3.29 M/mcL (4.00-5.20); Red Cell Distribution Width 15.9 % (11.5-14.5)
[2016-08-05 06:05] LABS: ALT/SGPT 23 U/l (0-40); Albumin 2.2 gm/dL (3.2-5.2); Albumin/Globulin Ratio 0.7 (1.0-2.3); Alkaline Phosphatase 82 U/L (39-117); Bilirubin,Direct 0.3 mg/dL (0.0-0.3); Blood Urea Nitrogen 24 mg/dl (8-23); Gamma Glutamyl Transpeptidase 41 U/L (5-36); Magnesium 1.9 mg/dL (1.6-2.5); Phosphorous 3.6 mg/dL (2.7-4.5); Uric Acid 3.2 mg/dL (2.5-8.0)
[2016-08-05] MEDS: PANTOPRAZOLE 40 MG VIAL IV SCH (08:19)
[2016-08-05] MEDS: INSULIN LISPRO 1 UNIT/0.01 ML UNIT SQ SCH ×4 (08:53→20:38)
[2016-08-05] MEDS: CHLORHEXIDINE GLUCONATE 1 ML ORAL.SOL SWABMOUTH SCH ×2 (09:16→20:40)
[2016-08-05] MEDS: FUROSEMIDE 40 MG/4 ML VIAL IV SCH ×2 (09:17→20:38)
[2016-08-05] MEDS: HEPARIN 5,000 UNIT/ML VIAL SQ SCH ×2 (09:17→20:37)
[2016-08-05] MEDS: MULTIVIT,THER IRON,CA,FA & MIN 1 TABLET PO SCH (09:19)
[2016-08-05] MEDS: DOCUSATE SODIUM 100 MG CAPSULE PO SCH ×2 (09:19→20:37)
[2016-08-05] MEDS: NEUTRA PHOS 1 PACKET PO SCH ×2 (09:24→20:38)
[2016-08-05] MEDS: ACETAMINOPHEN 1,000 MG/100 ML BOTTLE IV PRN (09:49)
[2016-08-05] MEDS: BUDESONIDE 0.5 MG/2 ML AMPUL.NEB NEB SCH ×2 (10:19→21:20)
[2016-08-05] MEDS: ALBUTEROL SULFATE 2.5 MG/3 ML NEBULIZER NEB PRN (10:19)
[2016-08-05] MEDS: VANCOMYCIN 1,500 MG in 0.9 % SODIUM CHLORIDE 500 ML IV SCH ×3 (10:44→20:43)
--- NOTE | 2016-08-05 13:14 | Internal Med Progress Note ---
Medical - PN: Subj Patient information: Note initiated : 08/05/16 at 1:11 pm Service Date, if different from initiated Date: [] Patient: Olinda Farris 75 y/o F admitted on 07/27/16 for N/V, Severe Pancreatitis. Chief Complaint: [] Interval history: History of present illness; 07/27- patient admitted with acute pancreatitis. Unclear etiology.History of alcoholism. CT no evidence of CBD dilation or cholelithiasis. patient olmesartan and statin which may be implicated in pancreatitis however has been on it for a while. home meds on hold. initial CRP 2.2. Lipase 4800. White count 18,000. Significant abdominal pain requiring IV opioids. Continue NPO/ antiemetics crystalloids. Admit to medical floor. Oran score 12 mandating inpatient hospitalization. Low Hopkins score/CT severity index for acute pancreatitis. Started on Primaxin. await Procalcitonin 07/28- worsening leukocytosis at 26,000 with bandemia. CRP is 17.8. Continue daily serial trending. Enteral tube feeding to start in 24 hours. Discussed with patient and family. Agreeable for Dobbhoff. continue crystalloids bolus and maintained 125-150 cc an hour due to extensive third spacing and pancreatic Inflammation. repeat CT scan 72 hours for interval change. patient now needing 3 L oxygen. High-risk development of ARDS . Underlying severe pancreatitis. dC Primaxin in light of normal pro-calcitonin levels. Continue close monitoring. Persistent sirs with tachycardia and tachypnea. continue electrolyte replacement including magnesium and phosphorus. also discussed possible transfer to tertiary Center if clinical deterioration noted. family is appreciative of care. 08/01/16: clinically, the patient has been fairly stable for the last day or so. She continues to have some intermittent delirium but overall pain appears to be better controlled. She also appears to be tolerating tube feedings so far, without significant increase in pain. tube feed-Residuals are acceptable. She did have 1 small bowel movement, but not much activity since then. -his evening, she has been complaining of increased work of breathing. She does have more wheezing and rales on exam. review of her home medications to show that she is generally on a long-acting bronchodilator plus tiotropium plus a steroid inhaler. -the patient had significant hypocalcemia on admission, but that has been corrected. CRP and white blood cell count have been improving. Acute renal dysfunction also appears to be improving. -Follow up CT scan did show worsening of her pancreatitis, but no obvious cyst formation. -otherwise,she denies significant pain at this time, although staff notes that she tends to ask for pain medications every 2-4 hours. Some of her pain is more in her back then in her abdomen. Reliability of her history is somewhat suspect, but she denies fever or chills, sore throat. She is having some coughing, and some wheezing, and says she has some intermittent shortness of breath. She denies significant abdominal pain at this time, and denies nausea or vomiting. However during her interview, she is picking at the oximeter on her finger, and reports she cannot quite figure out why she can't get it off. 08/02/16: Today, the patient is a little more alert. She is required a little bit less pain medicine overnight than the day before. she is having less anterior abdominal and left upper quadrant pain now, but continues to complain of discomfort in her bilateral sides. Nurses were able to get her up to a chair for quite some time today, which she tolerated reasonably well. -She is tolerating her tube feeds quite well, and residuals have been 0. Amylase and lipase are back to normal on today's labs. -chest x-ray yesterday was consistent with a left basilar pneumonia, also consistent with her increased cough and shortness of breath. She has been working harder today on incentive spirometry. Zosyn IV was started last night, and nebulized bronchodilatorswere orderedon a scheduled basis as well as nebulized Pulmicort. otherwise, she denies fever or chills, chest pain or palpitations. Her cough is mostly nonproductive. She denies nausea or vomiting or diarrhea. Iqbal catheter remains in place. 08/03/16:the patient continues to be more alert today and has been sitting up in a chair for 2 hours. She does continue to complain of pain however, mainly in her sides and flank areas. she denies fever or chills, significant cough or shortness of breath or chest pain. She denies nausea or vomiting. She did have a small stool again today. tube feed Residuals continued to be around 0 She did tolerate a clear liquid diet. A very low-grade fever was noted this morning and her white blood cell count has bumped up again. she does not report any other obvious sources of infection. 08/04/16: today, the patient says she is definitely feeling better. She is having less abdominal pain, and is feeling more alert. She did tolerate a full liquid diet for breakfast. Unfortunately we did not have much success with trying to diurese her yesterday. er white blood cell count remains elevated at 19,000, with an absolute granulocyte count of 18,000, although this is slightly improved compared to yesterday. she denies subjective fever or chills significant cough, chest pain, increase over her baseline shortness of breath, nausea or vomiting, diarrhea or constipation. She continues with both the feeding tube and a Iqbal catheter. 08/05/16:This morning, the patient states she continues to feel better every day. he was able to tolerate eggs and toast last night. She feels able to advance her diet today. She denies any increase in abdominal pain. Staff notes that her feeding tube is clogged this morning. She is still requiring heavy assistance to get in and out of bed, but has been able to sit up for hours at a time. -she denies subjective fever or chills, chest pain or shortness of breath. She says she has only minimal cough She denies abdominal pain, nausea or vomiting, diarrhea or constipation. She does still have a Iqbal in place. past medical history is notable for hypertension, hyperlipidemia, reactive airways disease, type 2 diabetes. Home medications included metformin, titropium/olodaterol Inhaler,rosuvastatin, losartan with HCTZ, fluticasone inhaler. - Constitutional Vitals: Vital Signs Temp Pulse Resp BP Pulse Ox 96.0 F L 90 20 112/65 94 08/05/16 11:43 08/05/16 10:32 08/05/16 11:43 08/05/16 11:43 08/05/16 11:43 Period Temp Pulse Resp BP Sys/Johnson Pulse Ox Last 24 Hr 96.0 F-98.2 F 89-98 16-22 112-146/63-82 91-98 Intake and Output 08/04/16 08/05/16 08/05/16 21:59 05:59 13:59 Intake Total 2634 / 2634 1575 / 1575 840 / 840 Output Total 650 / 650 2400 / 2400 1000 / 1000 Balance 1983 -825 / -825 -160 / -160 Weight 229 lb 14.4 oz Intake & Output: Intake & Output 08/04/16 08/05/16 08/05/16 21:59 05:59 13:59 Intake Total 2634 / 2634 1575 / 1575 840 / 840 Output Total 650 / 650 2400 / 2400 1000 / 1000 Balance 1983 -825 / -825 -160 / -160 Weight 229 lb 14.4 oz Intake: IV 570 / 570 100 / 100 600 / 600 Dextrose 5% in Water 50 150 / 150 100 / 100 ml @ 100 mls/hr IV Q6 ROLAN with Zosyn 3.375 gm Rx#: [id number] Sodium Chloride 0.9% 500 420 / 420 500 / 500 ml @ 333.3 mls/hr IV Q12H ROLAN with Vancomycin 1, 500 mg Rx#:[id number] Oral 100 / 100 240 / 240 Tube Feeding 1214 / 1214 475 / 475 GI Tube Flush 750 / 750 1000 / 1000 Output: Urine Catheter Amount 650 / 650 2400 / 2400 1000 / 1000 Other: Meal Breakfast Percent of Meal Consumed 50% Feeding Ability Assist with Tray Set Up Exam: her and her daughter are with her this morning. Everyone is smiling. Neck shows no obvious JVD. Cardiac exam shows regular rate and rhythm, with slight tachycardia. Lungs:She has fairly decreased breath sounds at the bases, and some very soft wheezes heard it and it expiration on the right side. Abdomen: There is very minimal tenderness with deep palpation of her epigastric area, but no guarding or rebound. Bowel sounds are active. Extremities: Continue to show significant dependent edema. Neurologic: The patient appears alert and oriented, and exam is grossly nonfocal Medical - PN: Obj Da - Labs CBC & Chem 7: 08/05/16 04:03 08/05/16 04:03 Labs: Abnormal Lab Results 08/05/16 08/05/16 08/04/16 04:03 04:03 04:10 WBC 17.5 H 19.0 H RBC 3.29 L 3.41 L Hgb 9.6 L 9.9 L Hct 29.8 L 30.9 L RDW 15.9 H 15.9 H Gran % 93.3 H 94.7 H Lymph % (Auto) 4.6 L 3.6 L Gran # 16.3 H 18.0 H Lymph # 0.8 L 0.7 L Carbon Dioxide 31 H BUN 24 H Glucose 154 H Calcium 7.9 L Phosphorus Direct Bilirubin GGT 41 H Lactate Dehydrogenase 319 H Total Protein 5.3 L Albumin 2.2 L Albumin/Globulin Ratio 0.7 L 08/03/16 08/03/16 04:05 04:05 WBC 20.1 H RBC 3.31 L Hgb 9.8 L Hct 30.4 L RDW 15.9 H Gran % 94.5 H Lymph % (Auto) 2.8 L Gran # 19.0 H Lymph # 0.6 L Carbon Dioxide BUN Glucose 146 H Calcium 7.8 L Phosphorus 2.6 L Direct Bilirubin 0.5 H GGT 61 H Lactate Dehydrogenase 419 H Total Protein 5.2 L Albumin 2.1 L Albumin/Globulin Ratio 0.7 L urinalysis from August 03: Is essentially normal 07/27/16:blood cultures are negative so far 08/01 :chest x-ray from this evening, shows moderate left basilar infiltrate and worsening small effusion. There is also atelectasis of the right base. 07/30/16:CT of the abdomen shows moderate worsening of the acute pancreatitis with increased rubin-Pancreatic fluid. No evidence of pseudocyst. Small bilateral pleural effusions. Feeding tube in satisfactory position in the duodenum.mild uterine enlargement. Meds: Medications Acetaminophen (Tylenol) 650 mg PO Q4-6HP PRN PRN Reason: PAIN/FEVER > 101 Albuterol Sulfate (Ventolin) 2.5 mg NEB Q3HP PRN PRN Reason: Shortness Of Breath Last Admin: 08/05/16 10:19 Dose: 2.5 mg Albuterol/Ipratropium (Duoneb) 3 ml NEB Q8 [facility] Last Admin: 08/05/16 05:11 Dose: 3 ml Bisacodyl (Dulcolax) 10 mg WA Q2-3DAYS PRN PRN Reason: Constipation Budesonide (Pulmicort) 0.5 mg NEB Q12 [facility] Last Admin: 08/05/16 10:19 Dose: 0.5 mg Chlorhexidine Gluconate (Peridex) 15 ml SWABMOUTH BID [facility] Last Admin: 08/05/16 09:16 Dose: 15 ml Dextrose (Dextrose 50%) 0 ml IV UD PRN PRN Reason: Hypoglycemia Diagnostic Test (Pha) (Accu-Chek) 1 each FS ACHS [facility] Last Admin: 08/05/16 11:46 Dose: 1 each Docusate Sodium (Colace) 100 mg PO BID [facility] Last Admin: 08/05/16 09:19 Dose: 100 mg Furosemide (Lasix) 60 mg IV Q12 [facility] Last Admin: 08/05/16 09:17 Dose: 60 mg Heparin Sodium (Porcine) (Heparin) 5,000 unit SQ Q12 [facility] Last Admin: 08/05/16 09:17 Dose: 5,000 unit Hydralazine HCl (Apresoline) 10 mg IV Q8HP PRN PRN Reason: Hypertension Hydromorphone HCl (Dilaudid) 1 - 2 mg IV Q2HP PRN PRN Reason: Pain Last Admin: 08/05/16 01:04 Dose: 2 mg Potassium Chloride 40 meq/ (Dextrose) 520 mls @ 130 mls/hr IV UD PRN PRN Reason: K+ = or < 3.5 Magnesium Sulfate (Magnesium Sulfate) 2 gm in 50 mls @ 50 mls/hr IV UD PRN PRN Reason: MG = or < 1.7 Acetaminophen (Ofirmev) 1,000 mg in 100 mls @ 200 mls/hr IV Q6HP PRN PRN Reason: PAIN/FEVER > 101 Last Infusion: 08/05/16 12:30 Dose: Infused Piperacillin Sod/Tazobactam (Sod 3.375 gm/ Dextrose) 50 mls @ 100 mls/hr IV Q6 [facility] Last Admin: 08/05/16 12:17 Dose: 100 mls/hr Vancomycin HCl 1,500 mg/ (Sodium Chloride) 500 mls @ 333.3 mls/hr IV Q12H [facility] Last Infusion: 08/05/16 12:27 Dose: Infused Insulin Human Lispro (Humalog) 0 unit SQ ACHS [facility] PRN Reason: Protocol Last Admin: 08/05/16 11:45 Dose: 1 unit Iron Carb/Multivit/Stephens/Folic Acid (Multivitamin W/Minerals) 1 tab PO DAILY [facility] Last Admin: 08/05/16 09:19 Dose: 1 tab Lorazepam (Ativan) 0.5 mg IV Q6HP PRN PRN Reason: Spasms Last Admin: 08/04/16 20:26 Dose: 0.5 mg Magnesium Hydroxide (Milk Of Magnesia) 30 ml PO DAILYP PRN PRN Reason: Constipation Ondansetron HCl (Zofran) 4 mg IV Q4-6HP PRN PRN Reason: Nausea And Vomiting Pantoprazole Sodium (Protonix) 40 mg IV QAMAC [facility] Last Admin: 08/05/16 08:19 Dose: 40 mg Potassium/Phosphorus/Sodium (Neutra Phos) 1 packet PO BID [facility] Last Admin: 08/05/16 09:24 Dose: 1 packet Senna/Docusate Sodium (Senna Plus Tablet) 1 tab PO HS [facility] Last Admin: 08/04/16 20:15 Dose: 1 tab Sodium Chloride (Saline Flush) 10 ml IV Q8 [facility] Last Admin: 08/05/16 05:11 Dose: 10 ml Medical - PN: A/P - Time Spent With Patient Total time spent is greater than 50% in coordination of care (as documented) at patient's floor/unit and/or counseling patient: - Narrative A/P Narrative: #1. GI. severe and acute pancreatitis. The patient's pain appears reasonably well- controlled. CRP mproved. Total calcium and phosphorus have improved. -lipase and amylase are back to normal . - metformin, Crestor, losartan/hctz are all on hold. -she seems to be tolerating tube feeds at this point,but we will likely remove the tube today, assuming she can eat lunch okay. -continue to keep the head of her bed elevated, to decrease the risk of aspiration. -continue to monitor bowel function. -continue Protonix for GI prophylaxis. -her active pancreatitis appears to be resolving. I suspect her continued abdominal discomfort is probably related to ascites that was accumulated during this episode. we'll increase her Lasix again to try to start moving some fluid. #2. Pulmonary/Infectious disease.. -history of reactive airways disease. -she has apparently developed a left basilar pneumonia. She is working on incentive spirometry today. . Duo nebs and Pulmicort added. Continue when necessary oxygen. leukocytosis is somewhat improved today. -continue Zosyn and vancomycin today is day 3, and she should probably continue at least through day 7.. -mobilize as able. #3. CODE STATUS: Full code. #4. DVT prophylaxis:subcutaneous heparin. #5. Neurologic. The patient's altered mental status is likely due to a medical delirium. this appears to be improving. Phenergan and trazodone were discontinued. #6. Renal. Calcium and vitamin D were supplemented, and are improving. phosphorus is being supplemented orally. #7. Hypertension-blood pressures are reasonably well-controlled. #8. Hyperlipidemia-meds are on hold for now. #9. History of type 2 diabetes. metformin is on hold. Cover with sliding scale insulin. accu-Cheks are in a reasonable range today, ranging from 122- 147.. approximately 25 minutes was spent so far today, interviewing and examining the patient, reviewing plan of care with staff, as well as with her and daughter, and writing orders. Medical - PN: Qual - VTE Deep Vein Thrombosis/Pulmonary Embolism Present on Admission: No
[2016-08-05] MEDS: LORazepam 2 MG/ML VIAL IV PRN (20:38)
[2016-08-05] MEDS: SENNOSIDES/DOCUSATE SODIUM 1 TAB TABLET PO SCH (20:40)
[2016-08-06] MEDS: HYDROmorphone 2 MG/ML SYRINGE IV PRN ×4 (02:12→21:20)
[2016-08-06] MEDS: PIPERACILLIN SODIUM/TAZOBACTAM 3.375 GM in DEXTROSE 5% IN WATER 50 ML IV SCH ×4 (04:40→23:09)
[2016-08-06] MEDS: 0.9 % SODIUM CHLORIDE 10 ML SYRINGE IV SCH ×3 (04:41→21:17)
[2016-08-06] MEDS: IPRATROPIUM/ALBUTEROL 3 ML AMPUL.NEB NEB SCH ×3 (04:41→22:16)
[2016-08-06 05:47] LABS: ALT/SGPT 27 U/l (0-40); Albumin 1.8 gm/dL (3.2-5.2); Albumin/Globulin Ratio 0.5 (1.0-2.3); Alkaline Phosphatase 90 U/L (39-117); Bilirubin,Direct < 0.2 mg/dL (0.0-0.3); Blood Urea Nitrogen 22 mg/dl (8-23); Gamma Glutamyl Transpeptidase 45 U/L (5-36); Magnesium 1.9 mg/dL (1.6-2.5); Phosphorous 3.8 mg/dL (2.7-4.5); Uric Acid 3.9 mg/dL (2.5-8.0)
[2016-08-06 06:23] LABS: Basophils # (Auto) 0 K/mcL (0.0-0.3); Basophils % (Auto) 0 % (0.0-2.0); Eosinophils # (Auto) 0.1 K/mcL (0.0-0.7); Eosinophils % (Auto) 0.5 % (0.0-7.0); Granulocytes % (Auto) 94.3 % (38.0-78.0); Lymphocytes # (Auto) 0.5 K/mcL (1.5-4.8); Lymphocytes % (Auto) 2.7 % (15.5-49.0); Mean Corpuscular HGB Conc 34.2 g/dL (31.0-36.0); Mean Corpuscular Hemoglobin 30.1 pg (26.0-34.0); Monocytes # (Auto) 0.5 K/mcL (0.1-0.9); Monocytes % (Auto) 2.5 % (1.0-9.0); Platelet Count 287 K/mcL (140-440); Red Cell Distribution Width 14.5 % (11.5-14.5)
[2016-08-06] MEDS: PANTOPRAZOLE 40 MG VIAL IV SCH (07:27)
[2016-08-06] MEDS: INSULIN LISPRO 1 UNIT/0.01 ML UNIT SQ SCH ×4 (07:44→21:15)
[2016-08-06] MEDS: ALBUTEROL SULFATE 2.5 MG/3 ML NEBULIZER NEB PRN ×2 (08:30→19:19)
[2016-08-06] MEDS: BUDESONIDE 0.5 MG/2 ML AMPUL.NEB NEB SCH ×2 (08:30→19:19)
[2016-08-06] MEDS: CHLORHEXIDINE GLUCONATE 1 ML ORAL.SOL SWABMOUTH SCH ×2 (09:09→21:16)
[2016-08-06] MEDS: NEUTRA PHOS 1 PACKET PO SCH ×2 (09:10→21:15)
[2016-08-06] MEDS: FUROSEMIDE 40 MG/4 ML VIAL IV SCH ×2 (09:10→21:16)
[2016-08-06] MEDS: HEPARIN 5,000 UNIT/ML VIAL SQ SCH ×2 (09:10→21:14)
[2016-08-06] MEDS: DOCUSATE SODIUM 100 MG CAPSULE PO SCH ×2 (09:11→21:14)
[2016-08-06] MEDS: MULTIVIT,THER IRON,CA,FA & MIN 1 TABLET PO SCH (09:11)
[2016-08-06] MEDS: VANCOMYCIN 1,500 MG in 0.9 % SODIUM CHLORIDE 500 ML IV SCH (11:39)
--- NOTE | 2016-08-06 12:11 | Internal Med Progress Note ---
Medical - PN: Subj Patient information: Note initiated : 08/06/16 at 12:09 pm Service Date, if different from initiated Date: [] Patient: Olinda Farris 75 y/o F admitted on 07/27/16 for N/V, Severe Pancreatitis. Chief Complaint: [] Interval history: History of present illness; 07/27- patient admitted with acute pancreatitis. Unclear etiology.History of alcoholism. CT no evidence of CBD dilation or cholelithiasis. patient olmesartan and statin which may be implicated in pancreatitis however has been on it for a while. home meds on hold. initial CRP 2.2. Lipase 4800. White count 18,000. Significant abdominal pain requiring IV opioids. Continue NPO/ antiemetics crystalloids. Admit to medical floor. Deuel score 12 mandating inpatient hospitalization. Low Jessica score/CT severity index for acute pancreatitis. Started on Primaxin. await Procalcitonin 07/28- worsening leukocytosis at 26,000 with bandemia. CRP is 17.8. Continue daily serial trending. Enteral tube feeding to start in 24 hours. Discussed with patient and family. Agreeable for Dobbhoff. continue crystalloids bolus and maintained 125-150 cc an hour due to extensive third spacing and pancreatic Inflammation. repeat CT scan 72 hours for interval change. patient now needing 3 L oxygen. High-risk development of ARDS . Underlying severe pancreatitis. dC Primaxin in light of normal pro-calcitonin levels. Continue close monitoring. Persistent sirs with tachycardia and tachypnea. continue electrolyte replacement including magnesium and phosphorus. also discussed possible transfer to tertiary Center if clinical deterioration noted. family is appreciative of care. 08/01/16: clinically, the patient has been fairly stable for the last day or so. She continues to have some intermittent delirium but overall pain appears to be better controlled. She also appears to be tolerating tube feedings so far, without significant increase in pain. tube feed-Residuals are acceptable. She did have 1 small bowel movement, but not much activity since then. -his evening, she has been complaining of increased work of breathing. She does have more wheezing and rales on exam. review of her home medications to show that she is generally on a long-acting bronchodilator plus tiotropium plus a steroid inhaler. -the patient had significant hypocalcemia on admission, but that has been corrected. CRP and white blood cell count have been improving. Acute renal dysfunction also appears to be improving. -Follow up CT scan did show worsening of her pancreatitis, but no obvious cyst formation. -otherwise,she denies significant pain at this time, although staff notes that she tends to ask for pain medications every 2-4 hours. Some of her pain is more in her back then in her abdomen. Reliability of her history is somewhat suspect, but she denies fever or chills, sore throat. She is having some coughing, and some wheezing, and says she has some intermittent shortness of breath. She denies significant abdominal pain at this time, and denies nausea or vomiting. However during her interview, she is picking at the oximeter on her finger, and reports she cannot quite figure out why she can't get it off. 08/02/16: Today, the patient is a little more alert. She is required a little bit less pain medicine overnight than the day before. she is having less anterior abdominal and left upper quadrant pain now, but continues to complain of discomfort in her bilateral sides. Nurses were able to get her up to a chair for quite some time today, which she tolerated reasonably well. -She is tolerating her tube feeds quite well, and residuals have been 0. Amylase and lipase are back to normal on today's labs. -chest x-ray yesterday was consistent with a left basilar pneumonia, also consistent with her increased cough and shortness of breath. She has been working harder today on incentive spirometry. Zosyn IV was started last night, and nebulized bronchodilatorswere orderedon a scheduled basis as well as nebulized Pulmicort. otherwise, she denies fever or chills, chest pain or palpitations. Her cough is mostly nonproductive. She denies nausea or vomiting or diarrhea. Iqbal catheter remains in place. 08/03/16:the patient continues to be more alert today and has been sitting up in a chair for 2 hours. She does continue to complain of pain however, mainly in her sides and flank areas. she denies fever or chills, significant cough or shortness of breath or chest pain. She denies nausea or vomiting. She did have a small stool again today. tube feed Residuals continued to be around 0 She did tolerate a clear liquid diet. A very low-grade fever was noted this morning and her white blood cell count has bumped up again. she does not report any other obvious sources of infection. 08/04/16: today, the patient says she is definitely feeling better. She is having less abdominal pain, and is feeling more alert. She did tolerate a full liquid diet for breakfast. Unfortunately we did not have much success with trying to diurese her yesterday. er white blood cell count remains elevated at 19,000, with an absolute granulocyte count of 18,000, although this is slightly improved compared to yesterday. she denies subjective fever or chills significant cough, chest pain, increase over her baseline shortness of breath, nausea or vomiting, diarrhea or constipation. She continues with both the feeding tube and a Iqbal catheter. 08/05/16:This morning, the patient states she continues to feel better every day. he was able to tolerate eggs and toast last night. She feels able to advance her diet today. She denies any increase in abdominal pain. Staff notes that her feeding tube is clogged this morning. She is still requiring heavy assistance to get in and out of bed, but has been able to sit up for hours at a time. -she denies subjective fever or chills, chest pain or shortness of breath. She says she has only minimal cough She denies abdominal pain, nausea or vomiting, diarrhea or constipation. She does still have a Iqbal in place. 08/06 Pt seen examined, no acute overnight events, slept well, she had 2 BM since last night, large watery. Somewhat incontinent. She denies any abodminal pain, feels weak, but overall is improving. She is tolerating PO diet well. her labs are significant for wbc count which is worsening slightly. She remains afebrile. Plan to get CXR chest and abdomen today, check cdiff today, if neg consider CT chest abdo and pelvis to look for source of persistant elevated wbc. She remains and vancomycin and zosyn for hcap pneumonia. Pertinent ROS: Denies headache, dizziness Denies chest pain, palpitations Denies cough or shortness of breath, but has sob on activity. Denies abdominal pain ( overnight did have some) , nausea or vomiting. - Constitutional Vitals: Vital Signs Temp Pulse Resp BP Pulse Ox 98.3 F 94 H 18 127/78 93 08/06/16 08:00 08/06/16 08:34 08/06/16 08:34 08/06/16 08:00 08/06/16 08:34 Period Temp Pulse Resp BP Sys/Johnson Pulse Ox Last 24 Hr 97.3 F-98.3 F 90-97 16-24 125-161/70-91 91-96 Intake and Output 08/05/16 08/06/16 08/06/16 21:59 05:59 13:59 Intake Total 50 / 50 750 / 750 300 / 300 Output Total 700 / 700 1900 / 1900 Balance -650 / -650 -1150 / -1150 300 / 300 Weight 241 lb 8 oz 241 lb 8 oz Patient Weight 08/07/16 05:59 Weight 241 lb 8 oz Intake & Output: Intake & Output 08/05/16 08/06/16 08/06/16 21:59 05:59 13:59 Intake Total 50 / 50 750 / 750 300 / 300 Output Total 700 / 700 1900 / 1900 Balance -650 / -650 -1150 / -1150 300 / 300 Weight 241 lb 8 oz 241 lb 8 oz Intake: IV 50 / 50 600 / 600 Dextrose 5% in Water 50 50 / 50 100 / 100 ml @ 100 mls/hr IV Q6 ROLAN with Zosyn 3.375 gm Rx#: [id number] Sodium Chloride 0.9% 500 500 / 500 ml @ 333.3 mls/hr IV Q12H ROLAN with Vancomycin 1, 500 mg Rx#:[id number] Oral 150 / 150 300 / 300 Output: Urine Catheter Amount 700 / 700 1900 / 1900 Other: Meal Breakfast Percent of Meal Consumed 25% Feeding Ability Independent # Bowel Movements 1 1 Exam: Constitutional; Afebrile, cooperative, alert, not in distress. Eyes- No icterus, Pupils equal, reactive, No periorbital swelling Ears- Ext ear normal, hearing normal to conversation. Neck- Midline trachea, supple Respiratory system: Air Entry equal on both sides, crackles at bases. CVS- Rate rhythm regular, S1,S2 heard, no gallop, no rub, oscar edema +++ Abdomen- Soft distended, bs hyperactive. epigastric tenderness present but improved, no guarding. 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 Medical - PN: Obj Da - Labs CBC & Chem 7: 08/06/16 03:38 08/06/16 03:38 Labs: Abnormal Lab Results 08/06/16 08/06/16 08/06/16 10:32 03:38 03:38 WBC 18.8 H RBC 3.40 L Hgb 10.2 L Hct 29.9 L RDW Gran % 94.3 H Lymph % (Auto) 2.7 L Gran # 17.7 H Lymph # 0.5 L Carbon Dioxide BUN Glucose Calcium 8.0 L GGT 45 H Lactate Dehydrogenase 387 H Total Protein 5.5 L Albumin 1.8 L Albumin/Globulin Ratio 0.5 L Vancomycin Trough 25.2 H* 08/05/16 08/05/16 08/04/16 04:03 04:03 04:10 WBC 17.5 H 19.0 H RBC 3.29 L 3.41 L Hgb 9.6 L 9.9 L Hct 29.8 L 30.9 L RDW 15.9 H 15.9 H Gran % 93.3 H 94.7 H Lymph % (Auto) 4.6 L 3.6 L Gran # 16.3 H 18.0 H Lymph # 0.8 L 0.7 L Carbon Dioxide 31 H BUN 24 H Glucose 154 H Calcium 7.9 L GGT 41 H Lactate Dehydrogenase 319 H Total Protein 5.3 L Albumin 2.2 L Albumin/Globulin Ratio 0.7 L Vancomycin Trough Meds: Medications Acetaminophen (Tylenol) 650 mg PO Q4-6HP PRN PRN Reason: PAIN/FEVER > 101 Albuterol Sulfate (Ventolin) 2.5 mg NEB Q3HP PRN PRN Reason: Shortness Of Breath Last Admin: 08/06/16 08:30 Dose: 2.5 mg Albuterol/Ipratropium (Duoneb) 3 ml NEB Q8 [facility] Last Admin: 08/06/16 04:41 Dose: 3 ml Bisacodyl (Dulcolax) 10 mg FL Q2-3DAYS PRN PRN Reason: Constipation Budesonide (Pulmicort) 0.5 mg NEB Q12 [facility] Last Admin: 08/06/16 08:30 Dose: 0.5 mg Chlorhexidine Gluconate (Peridex) 15 ml SWABMOUTH BID [facility] Last Admin: 08/06/16 09:09 Dose: 15 ml Dextrose (Dextrose 50%) 0 ml IV UD PRN PRN Reason: Hypoglycemia Diagnostic Test (Pha) (Accu-Chek) 1 each FS ACHS [facility] Last Admin: 08/06/16 12:04 Dose: 1 each Docusate Sodium (Colace) 100 mg PO BID [facility] Last Admin: 08/06/16 09:11 Dose: Not Given Furosemide (Lasix) 60 mg IV Q12 [facility] Last Admin: 08/06/16 09:10 Dose: 60 mg Heparin Sodium (Porcine) (Heparin) 5,000 unit SQ Q12 [facility] Last Admin: 08/06/16 09:10 Dose: 5,000 unit Hydralazine HCl (Apresoline) 10 mg IV Q8HP PRN PRN Reason: Hypertension Hydromorphone HCl (Dilaudid) 1 - 2 mg IV Q2HP PRN PRN Reason: Pain Last Admin: 08/06/16 12:00 Dose: 1 mg Potassium Chloride 40 meq/ (Dextrose) 520 mls @ 130 mls/hr IV UD PRN PRN Reason: K+ = or < 3.5 Last Admin: 08/06/16 07:27 Dose: 130 mls/hr Magnesium Sulfate (Magnesium Sulfate) 2 gm in 50 mls @ 50 mls/hr IV UD PRN PRN Reason: MG = or < 1.7 Acetaminophen (Ofirmev) 1,000 mg in 100 mls @ 200 mls/hr IV Q6HP PRN PRN Reason: PAIN/FEVER > 101 Last Infusion: 08/05/16 12:30 Dose: Infused Piperacillin Sod/Tazobactam (Sod 3.375 gm/ Dextrose) 50 mls @ 100 mls/hr IV Q6 [facility] Last Admin: 08/06/16 11:55 Dose: 100 mls/hr Vancomycin HCl 1,000 mg/ (Sodium Chloride) 250 mls @ 250 mls/hr IV Q12H [facility] Insulin Human Lispro (Humalog) 0 unit SQ ACHS [facility] PRN Reason: Protocol Last Admin: 08/06/16 12:05 Dose: 1 unit Iron Carb/Multivit/Applications Consultant/Folic Acid (Multivitamin W/Minerals) 1 tab PO DAILY [facility] Last Admin: 08/06/16 09:11 Dose: 1 tab Lorazepam (Ativan) 0.5 mg IV Q6HP PRN PRN Reason: Spasms Last Admin: 08/05/16 20:38 Dose: 0.5 mg Magnesium Hydroxide (Milk Of Magnesia) 30 ml PO DAILYP PRN PRN Reason: Constipation Ondansetron HCl (Zofran) 4 mg IV Q4-6HP PRN PRN Reason: Nausea And Vomiting Pantoprazole Sodium (Protonix) 40 mg IV QAMAC [facility] Last Admin: 08/06/16 07:27 Dose: 40 mg Potassium/Phosphorus/Sodium (Neutra Phos) 1 packet PO BID [facility] Last Admin: 08/06/16 09:10 Dose: 1 packet Senna/Docusate Sodium (Senna Plus Tablet) 1 tab PO HS [facility] Last Admin: 08/05/16 20:40 Dose: Not Given Sodium Chloride (Saline Flush) 10 ml IV Q8 [facility] Last Admin: 08/06/16 04:41 Dose: 10 ml Medical - PN: A/P - Time Spent With Patient Total time spent is greater than 50% in coordination of care (as documented) at patient's floor/unit and/or counseling patient: (1) Pancreatitis Status: Acute Current Visit: Yes (2) Ileus Status: Acute Current Visit: Yes (3) Hypocalcemia Status: Acute Current Visit: Yes (4) Vitamin D deficiency Status: Acute Current Visit: Yes (5) HCAP (healthcare-associated pneumonia) Status: Acute Current Visit: Yes (6) Diarrhea Status: Acute Current Visit: Yes (7) Sepsis Status: Acute Current Visit: Yes - Narrative A/P Narrative: HCAP - Pt has pna on last xray, with some fluid on the left side, Repeat CXR today if possilble PA view and lateral. Continue zosyn and vancomycin. Pancreatitis- Clinically improving, able to tolerate diet well, pain medication requiremetn is much better. contniue to monitor Fluid overload- From third spacing from pancreatitis, now on lasix 60mg bid for diuresis, Continue same. Dairrhea- Resolving ileus, check cdiff in light of persistent elevated wbc, X ray abdomen continue PT DM- Glucose well controlled continue sliding scale insulin. Advance diet as tolerated. Medical - PN: Qual - VTE Deep Vein Thrombosis/Pulmonary Embolism Present on Admission: No
--- NOTE | 2016-08-06 13:25 | XRay Report ---
CLINICAL INFORMATION: Pneumonia TECHNIQUE: Upright PA and lateral chest x-ray COMPARISON: Previous chest x-rays dated 08/01/2016, 07/29/2016, 04/02/2014 FINDINGS: Bilateral lower lobe infiltrates consistent with pneumonia. There is blunting of the posterior calcific sulci consistent with small effusions. Overall appearance is slightly improved. Continued follow-up recommended. No new parenchymal infiltrates. Heart size and vascularity are within normal limits. IMPRESSION: 1. Bilateral lower lobe infiltrates consistent with pneumonia. 2. Slight interval improvement. Interpreted and Authenticated by: Lee Peacock 08/06/16
--- NOTE | 2016-08-06 13:26 | XRay Report ---
CLINICAL INFORMATION: Abdominal pain and distention. History of pneumonia. TECHNIQUE: Supine and upright abdomen COMPARISON: 07/29/2016 FINDINGS: Gas pattern is unremarkable. There is gas and fecal material within the colon. No dilated gas-filled small bowel. No air-fluid levels. No mechanical small bowel obstruction. No pneumoperitoneum. No biliary or portal venous gas. No pneumatosis. There are are bilateral lower lobe pulmonary parenchymal infiltrates consistent with pneumonia. IMPRESSION: Negative abdomen Interpreted and Authenticated by: Lee Peacock 08/06/16
[2016-08-06 20:01] LABS: Appearance,Urine CLOUDY; Bacteria,Urine 0 /hpf (0); Bilirubin,Urine NEG (NEG); Color,Urine AMBER; Glucose,Urine (UA) NEGATIVE (NEG); Leukocyte Esterase,Urine NEG /uL (NEG); Mucus,Urine FEW /hpf (0); Nitrate,Urine NEG (NEG); Protein,Urine 100 mg/dL (NEG); Urine Blood >=1.0 mg/dL (<0.03); Urine RBC 143 /hpf (0-1); Urine Squamous Epithelial Cell 1 /hpf (0-4); Urine WBC 18 /hpf (0-4); Urobilinogen,Urine NEG (NEG)
[2016-08-06] MEDS ORDERED: POTASSIUM CHLORIDE 20 MEQ PACKET PO ONE (20:42)
[2016-08-06] MEDS: SENNOSIDES/DOCUSATE SODIUM 1 TAB TABLET PO SCH (21:16)
[2016-08-07] MEDS: PIPERACILLIN SODIUM/TAZOBACTAM 3.375 GM in DEXTROSE 5% IN WATER 50 ML IV SCH ×3 (05:07→17:09)
[2016-08-07] MEDS: IPRATROPIUM/ALBUTEROL 3 ML AMPUL.NEB NEB SCH ×3 (05:07→19:08)
[2016-08-07] MEDS: 0.9 % SODIUM CHLORIDE 10 ML SYRINGE IV SCH ×3 (05:07→22:36)
[2016-08-07 06:07] LABS: Basophils # (Auto) 0 K/mcL (0.0-0.3); Basophils % (Auto) 0.1 % (0.0-2.0); Eosinophils # (Auto) 0.2 K/mcL (0.0-0.7); Eosinophils % (Auto) 1.4 % (0.0-7.0); Granulocytes % (Auto) 91.6 % (38.0-78.0); Lymphocytes # (Auto) 0.7 K/mcL (1.5-4.8); Lymphocytes % (Auto) 4.5 % (15.5-49.0); Mean Cell Volume 90.7 fL (80.0-100.0); Mean Corpuscular HGB Conc 32.4 g/dL (31.0-36.0); Mean Corpuscular Hemoglobin 29.4 pg (26.0-34.0); Monocytes # (Auto) 0.4 K/mcL (0.1-0.9); Monocytes % (Auto) 2.4 % (1.0-9.0); Platelet Count 369 K/mcL (140-440); Red Cell Distribution Width 15.1 % (11.5-14.5)
[2016-08-07 06:48] LABS: ALT/SGPT 28 U/l (0-40); Albumin 2.2 gm/dL (3.2-5.2); Albumin/Globulin Ratio 0.7 (1.0-2.3); Alkaline Phosphatase 90 U/L (39-117); Bilirubin,Direct < 0.2 mg/dL (0.0-0.3); Blood Urea Nitrogen 22 mg/dl (8-23); C-Reactive Protein 17.7 mg/dl (0.0-0.8); Gamma Glutamyl Transpeptidase 45 U/L (5-36); Magnesium 2.1 mg/dL (1.6-2.5); Phosphorous 3.8 mg/dL (2.7-4.5); Uric Acid 4.8 mg/dL (2.5-8.0)
[2016-08-07] MEDS: ALBUTEROL SULFATE 2.5 MG/3 ML NEBULIZER NEB PRN ×2 (07:47→16:15)
[2016-08-07] MEDS: BUDESONIDE 0.5 MG/2 ML AMPUL.NEB NEB SCH ×2 (07:47→19:08)
[2016-08-07] MEDS ORDERED: oxyCODONE HCL 5 MG TABLET PO PRN (08:11)
[2016-08-07] MEDS: INSULIN LISPRO 1 UNIT/0.01 ML UNIT SQ SCH ×4 (08:21→21:01)
[2016-08-07] MEDS: PANTOPRAZOLE 40 MG VIAL IV SCH (08:24)
[2016-08-07] MEDS ORDERED: FUROSEMIDE 40 MG/4 ML VIAL IV SCH (09:00)
[2016-08-07] MEDS ORDERED: VANCOMYCIN 1,000 MG in 0.9 % SODIUM CHLORIDE 250 ML IV SCH (09:00)
[2016-08-07] MEDS: DOCUSATE SODIUM 100 MG CAPSULE PO SCH ×2 (09:38→21:02)
[2016-08-07] MEDS: NEUTRA PHOS 1 PACKET PO SCH ×2 (09:39→20:41)
[2016-08-07] MEDS: HEPARIN 5,000 UNIT/ML VIAL SQ SCH ×2 (09:39→20:41)
[2016-08-07] MEDS: CHLORHEXIDINE GLUCONATE 1 ML ORAL.SOL SWABMOUTH SCH ×2 (09:39→20:42)
[2016-08-07] MEDS: MULTIVIT,THER IRON,CA,FA & MIN 1 TABLET PO SCH (09:39)
[2016-08-07] MEDS ORDERED: BISACODYL 10 MG SUPP.RECT PR PRN (09:56)
[2016-08-07] MEDS ORDERED: ONDANSETRON 4 MG/2 ML VIAL IV PRN (09:56)
[2016-08-07] MEDS ORDERED: MAGNESIUM SULFATE 2 GM/50 ML BAG IV PRN (09:56)
[2016-08-07] MEDS ORDERED: MAGNESIUM HYDROXIDE 30 ML ORAL.SUSP PO PRN (09:56)
[2016-08-07] MEDS ORDERED: POTASSIUM CHLORIDE 40 MEQ in DEXTROSE 5% IN WATER 500 ML IV PRN (09:56)
[2016-08-07] MEDS ORDERED: DEXTROSE 50% 50 ML VIAL IV PRN (09:56)
[2016-08-07] MEDS ORDERED: hydrALAZINE 20 MG/ML VIAL IV PRN (09:56)
[2016-08-07] MEDS ORDERED: ACETAMINOPHEN 1,000 MG/100 ML BOTTLE IV PRN (09:56)
[2016-08-07] MEDS ORDERED: POTASSIUM CHLORIDE 20 MEQ PACKET PO SCH (10:00)
--- NOTE | 2016-08-07 11:02 | Internal Med Progress Note ---
Medical - PN: Subj Patient information: Note initiated : 08/07/16 at 10:58 am Service Date, if different from initiated Date: [] Patient: Olinda Farris 75 y/o F admitted on 07/27/16 for N/V, Severe Pancreatitis. Chief Complaint: [] Interval history: History of present illness; 07/27- patient admitted with acute pancreatitis. Unclear etiology.History of alcoholism. CT no evidence of CBD dilation or cholelithiasis. patient olmesartan and statin which may be implicated in pancreatitis however has been on it for a while. home meds on hold. initial CRP 2.2. Lipase 4800. White count 18,000. Significant abdominal pain requiring IV opioids. Continue NPO/ antiemetics crystalloids. Admit to medical floor. [place] score 12 mandating inpatient hospitalization. Low Jessica score/CT severity index for acute pancreatitis. Started on Primaxin. await Procalcitonin 07/28- worsening leukocytosis at 26,000 with bandemia. CRP is 17.8. Continue daily serial trending. Enteral tube feeding to start in 24 hours. Discussed with patient and family. Agreeable for [place]. continue crystalloids bolus and maintained 125-150 cc an hour due to extensive third spacing and pancreatic Inflammation. repeat CT scan 72 hours for interval change. patient now needing 3 L oxygen. High-risk development of ARDS . Underlying severe pancreatitis. dC Primaxin in light of normal pro-calcitonin levels. Continue close monitoring. Persistent sirs with tachycardia and tachypnea. continue electrolyte replacement including magnesium and phosphorus. also discussed possible transfer to tertiary Center if clinical deterioration noted. family is appreciative of care. 08/01/16: clinically, the patient has been fairly stable for the last day or so. She continues to have some intermittent delirium but overall pain appears to be better controlled. She also appears to be tolerating tube feedings so far, without significant increase in pain. tube feed-Residuals are acceptable. She did have 1 small bowel movement, but not much activity since then. -his evening, she has been complaining of increased work of breathing. She does have more wheezing and rales on exam. review of her home medications to show that she is generally on a long-acting bronchodilator plus tiotropium plus a steroid inhaler. -the patient had significant hypocalcemia on admission, but that has been corrected. CRP and white blood cell count have been improving. Acute renal dysfunction also appears to be improving. -Follow up CT scan did show worsening of her pancreatitis, but no obvious cyst formation. -otherwise,she denies significant pain at this time, although staff notes that she tends to ask for pain medications every 2-4 hours. Some of her pain is more in her back then in her abdomen. Reliability of her history is somewhat suspect, but she denies fever or chills, sore throat. She is having some coughing, and some wheezing, and says she has some intermittent shortness of breath. She denies significant abdominal pain at this time, and denies nausea or vomiting. However during her interview, she is picking at the oximeter on her finger, and reports she cannot quite figure out why she can't get it off. 08/02/16: Today, the patient is a little more alert. She is required a little bit less pain medicine overnight than the day before. she is having less anterior abdominal and left upper quadrant pain now, but continues to complain of discomfort in her bilateral sides. Nurses were able to get her up to a chair for quite some time today, which she tolerated reasonably well. -She is tolerating her tube feeds quite well, and residuals have been 0. Amylase and lipase are back to normal on today's labs. -chest x-ray yesterday was consistent with a left basilar pneumonia, also consistent with her increased cough and shortness of breath. She has been working harder today on incentive spirometry. Zosyn IV was started last night, and nebulized bronchodilatorswere orderedon a scheduled basis as well as nebulized Pulmicort. otherwise, she denies fever or chills, chest pain or palpitations. Her cough is mostly nonproductive. She denies nausea or vomiting or diarrhea. Byrd catheter remains in place. 08/03/16:the patient continues to be more alert today and has been sitting up in a chair for 2 hours. She does continue to complain of pain however, mainly in her sides and flank areas. she denies fever or chills, significant cough or shortness of breath or chest pain. She denies nausea or vomiting. She did have a small stool again today. tube feed Residuals continued to be around 0 She did tolerate a clear liquid diet. A very low-grade fever was noted this morning and her white blood cell count has bumped up again. she does not report any other obvious sources of infection. 08/04/16: today, the patient says she is definitely feeling better. She is having less abdominal pain, and is feeling more alert. She did tolerate a full liquid diet for breakfast. Unfortunately we did not have much success with trying to diurese her yesterday. er white blood cell count remains elevated at 19,000, with an absolute granulocyte count of 18,000, although this is slightly improved compared to yesterday. she denies subjective fever or chills significant cough, chest pain, increase over her baseline shortness of breath, nausea or vomiting, diarrhea or constipation. She continues with both the feeding tube and a Byrd catheter. 08/05/16:This morning, the patient states she continues to feel better every day. he was able to tolerate eggs and toast last night. She feels able to advance her diet today. She denies any increase in abdominal pain. Staff notes that her feeding tube is clogged this morning. She is still requiring heavy assistance to get in and out of bed, but has been able to sit up for hours at a time. -she denies subjective fever or chills, chest pain or shortness of breath. She says she has only minimal cough She denies abdominal pain, nausea or vomiting, diarrhea or constipation. She does still have a Byrd in place. 08/06 Pt seen examined, no acute overnight events, slept well, she had 2 BM since last night, large watery. Somewhat incontinent. She denies any abodminal pain, feels weak, but overall is improving. She is tolerating PO diet well. her labs are significant for wbc count which is worsening slightly. She remains afebrile. Plan to get CXR chest and abdomen today, check cdiff today, if neg consider CT chest abdo and pelvis to look for source of persistant elevated wbc. She remains and vancomycin and zosyn for hcap pneumonia. 08/07 Pt seen examined, doing well this AM, no acute complaints, pain in abdomen is better, but the patient is still tired and fatigued. Her WBC count is better today. She had one BM yesterday, and still is on lasix for diuresis. She continues to be on IV antibiotics for pneumonia, will need total of 7 days of ABX While changing bed sheets and moving the patient the nurse noted that the patient has some bleeding in the vagina. She looked and there is no blood in stools, but from vagina. small clot noted. The patient is not on any medication for such, is post menopausal for 20 yrs, no h/o post menopausal bleed, denies any family h/o uterine c ancer Ct done did show enlarged uterus and possible fibroid. Discussed with the patient regarding need for further workup and concern for maligancy. Plan to get Transabdominal/ transvaginal USG today. consider CAR WIPER consult inpatient vs outpatient depending on the results. The patient is tolerating po diet ok, will switch her pain meds to oral, and xfer her to med surg status. Pertinent ROS: Denies headache, dizziness Denies chest pain, palpitations Denies cough or shortness of breath Denies abdominal pain, nausea or vomiting. Bleeding per vagina noted by nurse . Additional PMFSH (Level 3 Only): Medical History Acute pancreatitis without infection or necrosis (Acute) Diarrhea (Acute) HCAP (healthcare-associated pneumonia) (Acute) Hypocalcemia (Acute) Ileus (Acute) Pancreatitis (Acute) Sepsis (Acute) Vitamin D deficiency (Acute) - Constitutional Vitals: Vital Signs Temp Pulse Resp BP Pulse Ox 97.7 F 92 H 18 117/59 92 08/07/16 03:41 08/07/16 08:02 08/07/16 08:02 08/07/16 03:41 08/07/16 08:02 Period Temp Pulse Resp BP Sys/Johnson Pulse Ox Last 24 Hr 97.2 F-98.1 F 89-98 18-20 92-131/59-71 92-95 Intake and Output 08/06/16 08/07/16 08/07/16 21:59 05:59 13:59 Intake Total 470 / 470 50 / 50 Output Total 275 / 275 1500 / 1500 Balance 195 / 195 -1450 / -1450 Weight 244 lb 4.8 oz Intake & Output: Intake & Output 08/06/16 08/07/16 08/07/16 21:59 05:59 13:59 Intake Total 470 / 470 50 / 50 Output Total 275 / 275 1500 / 1500 Balance 195 / 195 -1450 / -1450 Weight 244 lb 4.8 oz Intake: IV 50 / 50 50 / 50 Dextrose 5% in Water 50 50 / 50 50 / 50 ml @ 100 mls/hr IV Q6 ROLAN with Zosyn 3.375 gm Rx#: [id number] Oral 420 / 420 Output: Urine Catheter Amount 275 / 275 1500 / 1500 Other: # Bowel Movements 0 Exam: Constitutional; Afebrile, cooperative, alert, not in distress., tired and fatigued. Eyes- No icterus, Pupils equal, reactive, No periorbital swelling Ears- Ext ear normal, hearing normal to conversation. Neck- Midline trachea, supple Respiratory system: Air Entry equal on both sides, bibasilar crackles CVS- Rate rhythm regular, S1,S2 heard, no gallop, no rub. oscar pedal edema ++ Abdomen- Soft nontender abdomen, distention iproved, epigastric tenderness improved. [employer]ER- AOOx3, moving all extremities, no focal deficit noted. Medical - PN: Obj Da - Labs CBC & Chem 7: 08/07/16 03:30 08/07/16 03:30 Labs: Abnormal Lab Results 08/07/16 08/07/16 08/06/16 03:30 03:30 17:02 WBC 15.3 H RBC 3.30 L Hgb 9.7 L Hct 29.9 L RDW 15.1 H Gran % 91.6 H Lymph % (Auto) 4.5 L Gran # 14.1 H Lymph # 0.7 L Chloride 94 L Carbon Dioxide 33 H BUN Glucose Calcium 8.1 L GGT 45 H Lactate Dehydrogenase 328 H C-Reactive Protein 17.7 H Total Protein 5.5 L Albumin 2.2 L Albumin/Globulin Ratio 0.7 L Triglycerides 159 H Urine Protein 100 A Urine Occult Blood >=1.0 A Urine RBC 143 H Urine WBC 18 H Vancomycin Trough 08/06/16 08/06/16 08/06/16 10:32 03:38 03:38 WBC 18.8 H RBC 3.40 L Hgb 10.2 L Hct 29.9 L RDW Gran % 94.3 H Lymph % (Auto) 2.7 L Gran # 17.7 H Lymph # 0.5 L Chloride Carbon Dioxide BUN Glucose Calcium 8.0 L GGT 45 H Lactate Dehydrogenase 387 H C-Reactive Protein Total Protein 5.5 L Albumin 1.8 L Albumin/Globulin Ratio 0.5 L Triglycerides Urine Protein Urine Occult Blood Urine RBC Urine WBC Vancomycin Trough 25.2 H* 08/05/16 08/05/16 04:03 04:03 WBC 17.5 H RBC 3.29 L Hgb 9.6 L Hct 29.8 L RDW 15.9 H Gran % 93.3 H Lymph % (Auto) 4.6 L Gran # 16.3 H Lymph # 0.8 L Chloride Carbon Dioxide 31 H BUN 24 H Glucose 154 H Calcium 7.9 L GGT 41 H Lactate Dehydrogenase 319 H C-Reactive Protein Total Protein 5.3 L Albumin 2.2 L Albumin/Globulin Ratio 0.7 L Triglycerides Urine Protein Urine Occult Blood Urine RBC Urine WBC Vancomycin Trough Meds: Medications Acetaminophen (Tylenol) 650 mg PO Q4-6HP PRN PRN Reason: PAIN/FEVER > 101 Albuterol Sulfate (Ventolin) 2.5 mg NEB Q3HP PRN PRN Reason: Shortness Of Breath Albuterol/Ipratropium (Duoneb) 3 ml NEB Q6HRT ROLAN Bisacodyl (Dulcolax) 10 mg MS Q2-3DAYS PRN PRN Reason: Constipation Budesonide (Pulmicort) 0.5 mg NEB Q12 RLOAN Chlorhexidine Gluconate (Peridex) 15 ml SWABMOUTH BID ROLAN Dextrose (Dextrose 50%) 0 ml IV UD PRN PRN Reason: Hypoglycemia Diagnostic Test (Pha) (Accu-Chek) 1 each FS ACHS ROLAN Docusate Sodium (Colace) 100 mg PO BID ROLAN Furosemide (Lasix) 40 mg IV Q12 ROLAN Heparin Sodium (Porcine) (Heparin) 5,000 unit SQ Q12 ROLAN Hydralazine HCl (Apresoline) 10 mg IV Q8HP PRN PRN Reason: Hypertension Potassium Chloride 40 meq/ (Dextrose) 520 mls @ 130 mls/hr IV UD PRN PRN Reason: K+ = or < 3.5 Magnesium Sulfate (Magnesium Sulfate) 2 gm in 50 mls @ 50 mls/hr IV UD PRN PRN Reason: MG = or < 1.7 Acetaminophen (Ofirmev) 1,000 mg in 100 mls @ 200 mls/hr IV Q6HP PRN PRN Reason: PAIN/FEVER > 101 Piperacillin Sod/Tazobactam (Sod 3.375 gm/ Dextrose) 50 mls @ 100 mls/hr IV Q6 ROLAN Vancomycin HCl 1,000 mg/ (Sodium Chloride) 250 mls @ 250 mls/hr IV Q12H [facility] Insulin Human Lispro (Humalog) 0 unit SQ ACHS ROLAN PRN Reason: Protocol Iron Carb/Multivit/Lisco/Folic Acid (Multivitamin W/Minerals) 1 tab PO DAILY ROLAN Magnesium Hydroxide (Milk Of Magnesia) 30 ml PO DAILYP PRN PRN Reason: Constipation Ondansetron HCl (Zofran) 4 mg IV Q4-6HP PRN PRN Reason: Nausea And Vomiting Oxycodone HCl (Roxicodone) 5 mg PO Q4HP PRN PRN Reason: Pain Pantoprazole Sodium (Protonix) 40 mg PO QAMAC ROLAN Potassium Chloride (Klor-Con) 20 meq PO BIDCC ROLAN Stop: 08/11/16 08:01 Potassium/Phosphorus/Sodium (Neutra Phos) 1 packet PO BID ROLAN Senna/Docusate Sodium (Senna Plus Tablet) 1 tab PO HS ROLAN Sodium Chloride (Saline Flush) 10 ml IV Q8 [facility] Medical - PN: A/P - Time Spent With Patient Total time spent is greater than 50% in coordination of care (as documented) at patient's floor/unit and/or counseling patient: (1) Pancreatitis Status: Acute Current Visit: Yes (2) Ileus Status: Acute Current Visit: Yes (3) Hypocalcemia Status: Acute Current Visit: Yes (4) Vitamin D deficiency Status: Acute Current Visit: Yes (5) HCAP (healthcare-associated pneumonia) Status: Acute Current Visit: Yes (6) Diarrhea Status: Acute Current Visit: Yes (7) Sepsis Status: Acute Current Visit: Yes (8) Abnormal vaginal bleeding Status: Acute Current Visit: Yes - Narrative A/P Narrative: Acute pancreatitis- CRP improving, clinically patient is improving, contniue with oral pain meds Fluid overload- Due to third spacing during IV fluids/ Inflammation during acute flare up of pancreatitis. IV diuresis. Keep the byrd on for another day or so. HCAP- On Zosyn and Vanco espomq8l same, wbc improving, Cdiff is negative. Vaginal bleed- Etiolgoy, Get usg, consider lobby concierge consult. Not on full anticoagulation. Debility- Continue with PT. Medical - PN: Qual - VTE Deep Vein Thrombosis/Pulmonary Embolism Present on Admission: No
[2016-08-07] MEDS ORDERED: IPRATROPIUM/ALBUTEROL 3 ML AMPUL.NEB NEB SCH (13:00)
--- NOTE | 2016-08-07 15:08 | Ultrasound Report ---
CLINICAL INFORMATION: Vaginal bleeding. Postmenopausal female. TECHNIQUE: Transabdominal and endovaginal ultrasound. Grayscale and color flow spectral imaging. COMPARISON: CT scan of the abdomen and pelvis dated 07/27/2016 FINDINGS: Uterus measures 10.0 x 4.3 x 3.8 cm. This is somewhat enlarged in this postmenopausal female. Uterus is heterogeneous. No well-defined discrete mass identified. Endometrium measures 6 mm. Endometrium in the lower uterine segment however is abnormal with irregular thickening and cystic change. This is a nonspecific appearance. This may be due to endometrial hyperplasia or adenomyosis. Endometrial carcinoma cannot be excluded based upon the sonographic appearance. Ovaries are not visualized. No adnexal mass identified. There is a small amount of free pelvic fluid within the cul-de-sac. Although this could be due to adnexal pathology may also be related to this patient's pancreatitis. Dr. Almodovar was called with these results IMPRESSION: 1. Mildly enlarged and heterogeneous uterus. No discrete myometrial mass 2. Abnormal endometrium in the lower uterine segment. There is prominence with cystic change. Differential diagnosis includes endometrial hyperplasia, adenomyosis, and endometrial carcinoma. 3. Small amount of free fluid within the pelvic cul-de-sac. Ovaries are not identified Interpreted and Authenticated by: Lee Peacock 08/07/16
[2016-08-07] MEDS: POTASSIUM CHLORIDE 20 MEQ PACKET PO SCH (17:09)
[2016-08-07] MEDS: oxyCODONE HCL 5 MG TABLET PO PRN ×2 (18:39→22:51)
[2016-08-07] MEDS: FUROSEMIDE 40 MG/4 ML VIAL IV SCH (20:41)
[2016-08-07] MEDS: SENNOSIDES/DOCUSATE SODIUM 1 TAB TABLET PO SCH (21:02)
[2016-08-07] MEDS: VANCOMYCIN 1,000 MG in 0.9 % SODIUM CHLORIDE 250 ML IV SCH (22:35)
[2016-08-08] MEDS: IPRATROPIUM/ALBUTEROL 3 ML AMPUL.NEB NEB SCH ×4 (00:59→18:26)
[2016-08-08] MEDS: PIPERACILLIN SODIUM/TAZOBACTAM 3.375 GM in DEXTROSE 5% IN WATER 50 ML IV SCH ×5 (00:59→23:36)
[2016-08-08] MEDS: oxyCODONE HCL 5 MG TABLET PO PRN ×3 (02:48→18:24)
[2016-08-08 05:02] LABS: Basophils # (Auto) 0 K/mcL (0.0-0.3); Basophils % (Auto) 0 % (0.0-2.0); Eosinophils # (Auto) 0.2 K/mcL (0.0-0.7); Eosinophils % (Auto) 1.3 % (0.0-7.0); Granulocytes % (Auto) 92.8 % (38.0-78.0); Lymphocytes # (Auto) 0.6 K/mcL (1.5-4.8); Lymphocytes % (Auto) 3.8 % (15.5-49.0); Mean Cell Volume 89.9 fL (80.0-100.0); Mean Corpuscular HGB Conc 32.6 g/dL (31.0-36.0); Mean Corpuscular Hemoglobin 29.3 pg (26.0-34.0); Monocytes # (Auto) 0.3 K/mcL (0.1-0.9); Monocytes % (Auto) 2.1 % (1.0-9.0); Platelet Count 434 K/mcL (140-440); RBC 3.27 M/mcL (4.00-5.20); Red Cell Distribution Width 15.3 % (11.5-14.5)
[2016-08-08 05:36] LABS: ALT/SGPT 31 U/l (0-40); Albumin 2.1 gm/dL (3.2-5.2); Albumin/Globulin Ratio 0.6 (1.0-2.3); Alkaline Phosphatase 125 U/L (39-117); Bilirubin,Direct < 0.2 mg/dL (0.0-0.3); Blood Urea Nitrogen 18 mg/dl (8-23); Gamma Glutamyl Transpeptidase 47 U/L (5-36); Magnesium 2.1 mg/dL (1.6-2.5); Phosphorous 3.6 mg/dL (2.7-4.5); Uric Acid 4.6 mg/dL (2.5-8.0)
[2016-08-08] MEDS: 0.9 % SODIUM CHLORIDE 10 ML SYRINGE IV SCH ×2 (05:51→14:31)
[2016-08-08] MEDS: INSULIN LISPRO 1 UNIT/0.01 ML UNIT SQ SCH ×4 (07:25→20:59)
[2016-08-08] MEDS: PANTOPRAZOLE 40 MG TABLET PO SCH (07:29)
[2016-08-08] MEDS: NEUTRA PHOS 1 PACKET PO SCH ×2 (08:06→20:54)
[2016-08-08] MEDS: HEPARIN 5,000 UNIT/ML VIAL SQ SCH ×2 (08:07→20:54)
[2016-08-08] MEDS: FUROSEMIDE 40 MG/4 ML VIAL IV SCH (08:07)
[2016-08-08] MEDS: MULTIVIT,THER IRON,CA,FA & MIN 1 TABLET PO SCH (08:07)
[2016-08-08] MEDS: CHLORHEXIDINE GLUCONATE 1 ML ORAL.SOL SWABMOUTH SCH ×2 (08:08→20:54)
[2016-08-08] MEDS: ACETAMINOPHEN 325 MG TABLET PO PRN ×2 (08:08→21:14)
[2016-08-08] MEDS: POTASSIUM CHLORIDE 20 MEQ PACKET PO SCH ×2 (08:11→17:51)
[2016-08-08] MEDS: DOCUSATE SODIUM 100 MG CAPSULE PO SCH ×2 (08:11→20:59)
--- NOTE | 2016-08-08 08:21 | Consultation ---
DATE OF CONSULTATION: 08/07/2016 HISTORY OF PRESENT ILLNESS: The patient is a 75-year-old female who was admitted for acute pancreatitis approximately 10 days ago. She has been treated in and out of the intensive care for her condition. She is still somewhat confused and still recovering from her condition. The patient was noted today to have vaginal bleeding. She started bleeding bright red blood vaginally in small amounts. She is not cramping or having any pain. She does note that she is slightly bloated after eating but otherwise negative. The patient has not had a hysterectomy. She has not had any female surgeries. She reports nothing vaginally, no surgeries, no endometriosis, no pelvic pain. The patient is not taking any hormone replacement. 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 MEDICAL HISTORY: Pancreatitis, asthma, COPD, diabetes. ALLERGIES: NONE. SOCIAL HISTORY: She denies smoking, drugs, or alcohol. MEDICATIONS: Acetaminophen. Albuterol. Bisacodyl. Chlorhexidine. Dextrose. Heparin 5000 units subcutaneous. Lasix. Docusate sodium. Apresoline. Insulin. Milk of Magnesia, Zofran. Oxycodone. Protonix. Potassium chloride. Sodium chloride for IV fluids and flushes. FAMILY HISTORY: Significant for diabetes, hypertension, heart disease. REVIEW OF SYSTEMS: She reports to be bloated. She reports to have some abdominal discomfort, vaginal bleeding, but no cramping. DIAGNOSTIC DATA: Ultrasound shows an enlarged uterus at 10 cm with endometrial lining which is 6 cm. The patient has no specific masses in the uterus, no fibroids, no specific masses on the ovaries. Hemoglobin and hematocrit is 10.2 and 32.4, which is fairly stable over the past few days. ASSESSMENT AND PLAN: A 75-year-old female with undiagnosed vaginal bleeding. She has an enlarged uterus with thickened endometrium. The patient needs some type of uterine sampling with a dilation and curettage, hysteroscopy. She may need to recover from current illness and sickness prior to this being performed. Once the patient is stronger, even as an outpatient, she may be able to undergo such. Will discuss with her primary care doctor and hospitalist for their recommendations for such. AXEL:daniel Job ID: [id number] Doc ID: [id number] Arnel Whitlock MD [facility]
[2016-08-08] MEDS: BUDESONIDE 0.5 MG/2 ML AMPUL.NEB NEB SCH ×2 (09:13→19:58)
[2016-08-08] MEDS: VANCOMYCIN 1,000 MG in 0.9 % SODIUM CHLORIDE 250 ML IV SCH ×2 (09:46→21:09)
[2016-08-08] MEDS ORDERED: IOPAMIDOL 100 ML BOTTLE IV ONE (12:21)
--- NOTE | 2016-08-08 13:21 | Internal Med Progress Note ---
Medical - PN: Subj Patient information: Note initiated : 08/08/16 at 1:18 pm Service Date, if different from initiated Date: [] Patient: Olinda Farris 75 y/o F admitted on 07/27/16 for N/V, Severe Pancreatitis. Chief Complaint: [] Interval history: History of present illness; 07/27- patient admitted with acute pancreatitis. Unclear etiology.History of alcoholism. CT no evidence of CBD dilation or cholelithiasis. patient olmesartan and statin which may be implicated in pancreatitis however has been on it for a while. home meds on hold. initial CRP 2.2. Lipase 4800. White count 18,000. Significant abdominal pain requiring IV opioids. Continue NPO/ antiemetics crystalloids. Admit to medical floor. Wing score 12 mandating inpatient hospitalization. Low [place] score/CT severity index for acute pancreatitis. Started on Primaxin. await Procalcitonin 07/28- worsening leukocytosis at 26,000 with bandemia. CRP is 17.8. Continue daily serial trending. Enteral tube feeding to start in 24 hours. Discussed with patient and family. Agreeable for [place]. continue crystalloids bolus and maintained 125-150 cc an hour due to extensive third spacing and pancreatic Inflammation. repeat CT scan 72 hours for interval change. patient now needing 3 L oxygen. High-risk development of ARDS . Underlying severe pancreatitis. dC Primaxin in light of normal pro-calcitonin levels. Continue close monitoring. Persistent sirs with tachycardia and tachypnea. continue electrolyte replacement including magnesium and phosphorus. also discussed possible transfer to tertiary Center if clinical deterioration noted. family is appreciative of care. 08/01/16: clinically, the patient has been fairly stable for the last day or so. She continues to have some intermittent delirium but overall pain appears to be better controlled. She also appears to be tolerating tube feedings so far, without significant increase in pain. tube feed-Residuals are acceptable. She did have 1 small bowel movement, but not much activity since then. -his evening, she has been complaining of increased work of breathing. She does have more wheezing and rales on exam. review of her home medications to show that she is generally on a long-acting bronchodilator plus tiotropium plus a steroid inhaler. -the patient had significant hypocalcemia on admission, but that has been corrected. CRP and white blood cell count have been improving. Acute renal dysfunction also appears to be improving. -Follow up CT scan did show worsening of her pancreatitis, but no obvious cyst formation. -otherwise,she denies significant pain at this time, although staff notes that she tends to ask for pain medications every 2-4 hours. Some of her pain is more in her back then in her abdomen. Reliability of her history is somewhat suspect, but she denies fever or chills, sore throat. She is having some coughing, and some wheezing, and says she has some intermittent shortness of breath. She denies significant abdominal pain at this time, and denies nausea or vomiting. However during her interview, she is picking at the oximeter on her finger, and reports she cannot quite figure out why she can't get it off. 08/02/16: Today, the patient is a little more alert. She is required a little bit less pain medicine overnight than the day before. she is having less anterior abdominal and left upper quadrant pain now, but continues to complain of discomfort in her bilateral sides. Nurses were able to get her up to a chair for quite some time today, which she tolerated reasonably well. -She is tolerating her tube feeds quite well, and residuals have been 0. Amylase and lipase are back to normal on today's labs. -chest x-ray yesterday was consistent with a left basilar pneumonia, also consistent with her increased cough and shortness of breath. She has been working harder today on incentive spirometry. Zosyn IV was started last night, and nebulized bronchodilatorswere orderedon a scheduled basis as well as nebulized Pulmicort. otherwise, she denies fever or chills, chest pain or palpitations. Her cough is mostly nonproductive. She denies nausea or vomiting or diarrhea. Byrd catheter remains in place. 08/03/16:the patient continues to be more alert today and has been sitting up in a chair for 2 hours. She does continue to complain of pain however, mainly in her sides and flank areas. she denies fever or chills, significant cough or shortness of breath or chest pain. She denies nausea or vomiting. She did have a small stool again today. tube feed Residuals continued to be around 0 She did tolerate a clear liquid diet. A very low-grade fever was noted this morning and her white blood cell count has bumped up again. she does not report any other obvious sources of infection. 08/04/16: today, the patient says she is definitely feeling better. She is having less abdominal pain, and is feeling more alert. She did tolerate a full liquid diet for breakfast. Unfortunately we did not have much success with trying to diurese her yesterday. er white blood cell count remains elevated at 19,000, with an absolute granulocyte count of 18,000, although this is slightly improved compared to yesterday. she denies subjective fever or chills significant cough, chest pain, increase over her baseline shortness of breath, nausea or vomiting, diarrhea or constipation. She continues with both the feeding tube and a Byrd catheter. 08/05/16:This morning, the patient states she continues to feel better every day. he was able to tolerate eggs and toast last night. She feels able to advance her diet today. She denies any increase in abdominal pain. Staff notes that her feeding tube is clogged this morning. She is still requiring heavy assistance to get in and out of bed, but has been able to sit up for hours at a time. -she denies subjective fever or chills, chest pain or shortness of breath. She says she has only minimal cough She denies abdominal pain, nausea or vomiting, diarrhea or constipation. She does still have a Byrd in place. 08/06 Pt seen examined, no acute overnight events, slept well, she had 2 BM since last night, large watery. Somewhat incontinent. She denies any abodminal pain, feels weak, but overall is improving. She is tolerating PO diet well. her labs are significant for wbc count which is worsening slightly. She remains afebrile. Plan to get CXR chest and abdomen today, check cdiff today, if neg consider CT chest abdo and pelvis to look for source of persistant elevated wbc. She remains and vancomycin and zosyn for hcap pneumonia. 08/07 Pt seen examined, doing well this AM, no acute complaints, pain in abdomen is better, but the patient is still tired and fatigued. Her WBC count is better today. She had one BM yesterday, and still is on lasix for diuresis. She continues to be on IV antibiotics for pneumonia, will need total of 7 days of ABX While changing bed sheets and moving the patient the nurse noted that the patient has some bleeding in the vagina. She looked and there is no blood in stools, but from vagina. small clot noted. The patient is not on any medication for such, is post menopausal for 20 yrs, no h/o post menopausal bleed, denies any family h/o uterine c ancer Ct done did show enlarged uterus and possible fibroid. Discussed with the patient regarding need for further workup and concern for maligancy. Plan to get Transabdominal/ transvaginal USG today. consider ORTHOTIC AIDE consult inpatient vs outpatient depending on the results. The patient is tolerating po diet ok, will switch her pain meds to oral, and xfer her to med surg status. 08/08 Pt seen examined, doing better this AM, no acute overnight events, no ORTHOTIC AIDE bleed this AM, Discussed case with ORTHOTIC AIDE hospice consultant, who advised DnC done preferably as outpatient but c an do it inpatient if the patient bleeds moderate to heavy or if there is significant drop in h/h Patient was lying in bed comfortably this AM, tolerating po well WBC count went up again today, will get CT chest abdo and pelvis to r/o any pathology continue antibiotics for HCAP pna. D/c byrd today, and change lasix to 20mg bid for gentle diuresis. Wean off oxygen as tolerated, Pt has h/o COPD and has ome oxygen on as needed basis, I feel that she may need to continue with oxygen on discharge. Family at bedside updated on the plan of care. Pertinent ROS: Denies headache, dizziness Denies chest pain, palpitations Denies cough or shortness of breath Denies abdominal pain, nausea or vomiting. - Constitutional Vitals: Vital Signs Temp Pulse Resp BP Pulse Ox 98.2 F 85 18 149/95 95 08/08/16 12:00 08/08/16 12:00 08/08/16 12:00 08/08/16 12:00 08/08/16 12:00 Period Temp Pulse Resp BP Sys/Johnson Pulse Ox Last 24 Hr 97.5 F-98.3 F 85-107 12-24 131-155/71-95 92-95 Intake and Output 08/07/16 08/08/16 08/08/16 21:59 05:59 13:59 Intake Total 270 / 270 700 / 700 370 / 370 Output Total 950 / 950 1500 / 1500 1100 / 1100 Balance -680 / -680 -800 / -800 -730 / -730 Weight 240 lb 8 oz Intake & Output: Intake & Output 08/07/16 08/08/16 08/08/16 21:59 05:59 13:59 Intake Total 270 / 270 700 / 700 370 / 370 Output Total 950 / 950 1500 / 1500 1100 / 1100 Balance -680 / -680 -800 / -800 -730 / -730 Weight 240 lb 8 oz Intake: IV 50 / 50 300 / 300 50 / 50 Dextrose 5% in Water 50 50 / 50 50 / 50 50 / 50 ml @ 100 mls/hr IV Q6 ROLAN with Zosyn 3.375 gm Rx#: [id number] Sodium Chloride 0.9% 250 250 / 250 ml @ 250 mls/hr IV Q12H ROLAN with Vancomycin 1,000 mg Rx#:[id number] Oral 220 / 220 400 / 400 320 / 320 Output: Urine Catheter Amount 950 / 950 1500 / 1500 Void Amount 1100 / 1100 Uretheral (Byrd) 1100 / 1100 Other: Meal Dinner Breakfast Percent of Meal Consumed 20% 75% Feeding Ability Assist with Tray Set Up Assist with Tray Set Up Exam: Constitutional; Afebrile, cooperative, alert, not in distress. Eyes- No icterus, Pupils equal, reactive, No periorbital swelling Ears- Ext ear normal, hearing normal to conversation. Neck- Midline trachea, supple Respiratory system: Air Entry equal on both sides, basilar crackles. no wheezing. CVS- Rate rhythm regular, S1,S2 heard, no gallop, no rub. Abdomen- Soft nontender abdomen, mild epigastric tendernss. 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 Medical - PN: Obj Da - Labs CBC & Chem 7: 08/08/16 03:48 08/08/16 03:48 Labs: Abnormal Lab Results 08/08/16 08/08/16 08/08/16 08:18 03:48 03:48 WBC 15.9 H RBC 3.27 L Hgb 9.6 L Hct 29.4 L RDW 15.3 H Gran % 92.8 H Lymph % (Auto) 3.8 L Gran # 14.7 H Lymph # 0.6 L Chloride 95 L Carbon Dioxide Glucose 109 H Calcium 8.1 L GGT 47 H Alkaline Phosphatase 125 H Lactate Dehydrogenase 326 H C-Reactive Protein Total Protein 5.4 L Albumin 2.1 L Albumin/Globulin Ratio 0.6 L Triglycerides Urine Protein Urine Occult Blood Urine RBC Urine WBC Vancomycin Trough 16.9 H 08/07/16 08/07/16 08/06/16 03:30 03:30 17:02 WBC 15.3 H RBC 3.30 L Hgb 9.7 L Hct 29.9 L RDW 15.1 H Gran % 91.6 H Lymph % (Auto) 4.5 L Gran # 14.1 H Lymph # 0.7 L Chloride 94 L Carbon Dioxide 33 H Glucose Calcium 8.1 L GGT 45 H Alkaline Phosphatase Lactate Dehydrogenase 328 H C-Reactive Protein 17.7 H Total Protein 5.5 L Albumin 2.2 L Albumin/Globulin Ratio 0.7 L Triglycerides 159 H Urine Protein 100 A Urine Occult Blood >=1.0 A Urine RBC 143 H Urine WBC 18 H Vancomycin Trough 08/06/16 08/06/16 08/06/16 10:32 03:38 03:38 WBC 18.8 H RBC 3.40 L Hgb 10.2 L Hct 29.9 L RDW Gran % 94.3 H Lymph % (Auto) 2.7 L Gran # 17.7 H Lymph # 0.5 L Chloride Carbon Dioxide Glucose Calcium 8.0 L GGT 45 H Alkaline Phosphatase Lactate Dehydrogenase 387 H C-Reactive Protein Total Protein 5.5 L Albumin 1.8 L Albumin/Globulin Ratio 0.5 L Triglycerides Urine Protein Urine Occult Blood Urine RBC Urine WBC Vancomycin Trough 25.2 H* Meds: Medications Acetaminophen (Tylenol) 650 mg PO Q4-6HP PRN PRN Reason: PAIN/FEVER > 101 Last Admin: 08/08/16 08:08 Dose: 650 mg Albuterol Sulfate (Ventolin) 2.5 mg NEB Q3HP PRN PRN Reason: Shortness Of Breath Last Admin: 08/07/16 16:15 Dose: 2.5 mg Albuterol/Ipratropium (Duoneb) 3 ml NEB Q6HRT [facility] Last Admin: 08/08/16 07:05 Dose: 3 ml Bisacodyl (Dulcolax) 10 mg [place] Q2-3DAYS PRN PRN Reason: Constipation Budesonide (Pulmicort) 0.5 mg NEB Q12 [facility] Last Admin: 08/08/16 09:13 Dose: 0.5 mg Chlorhexidine Gluconate (Peridex) 15 ml SWABMOUTH BID [facility] Last Admin: 08/08/16 08:08 Dose: 15 ml Dextrose (Dextrose 50%) 0 ml IV UD PRN PRN Reason: Hypoglycemia Diagnostic Test (Pha) (Accu-Chek) 1 each FS ACHS [facility] Last Admin: 08/08/16 11:24 Dose: 1 each Docusate Sodium (Colace) 100 mg PO BID [facility] Last Admin: 08/08/16 08:11 Dose: Not Given Furosemide (Lasix) 20 mg PO BIDD [facility] Heparin Sodium (Porcine) (Heparin) 5,000 unit SQ Q12 [facility] Last Admin: 08/08/16 08:07 Dose: 5,000 unit Hydralazine HCl (Apresoline) 10 mg IV Q8HP PRN PRN Reason: Hypertension Magnesium Sulfate (Magnesium Sulfate) 2 gm in 50 mls @ 50 mls/hr IV UD PRN PRN Reason: MG = or < 1.7 Acetaminophen (Ofirmev) 1,000 mg in 100 mls @ 200 mls/hr IV Q6HP PRN PRN Reason: PAIN/FEVER > 101 Piperacillin Sod/Tazobactam (Sod 3.375 gm/ Dextrose) 50 mls @ 100 mls/hr IV Q6 [facility] Last Admin: 08/08/16 12:54 Dose: 100 mls/hr Vancomycin HCl 1,000 mg/ (Sodium Chloride) 250 mls @ 250 mls/hr IV Q12H [facility] Last Admin: 08/08/16 09:46 Dose: 150 mls/hr Insulin Human Lispro (Humalog) 0 unit SQ [facility] PRN Reason: Protocol Last Admin: 08/08/16 11:24 Dose: 2 unit Iron Carb/Multivit/[place]/Folic Acid (Multivitamin W/Minerals) 1 tab PO DAILY [facility] Last Admin: 08/08/16 08:07 Dose: 1 tab Magnesium Hydroxide (Milk Of Magnesia) 30 ml PO DAILYP PRN PRN Reason: Constipation Ondansetron HCl (Zofran) 4 mg IV Q4-6HP PRN PRN Reason: Nausea And Vomiting Last Admin: 08/07/16 19:21 Dose: 4 mg Oxycodone HCl (Roxicodone) 5 mg PO Q4HP PRN PRN Reason: Pain Last Admin: 08/08/16 09:24 Dose: 5 mg Pantoprazole Sodium (Protonix) 40 mg PO QAMAC [facility] Last Admin: 08/08/16 07:29 Dose: 40 mg Potassium Chloride (Klor-Con) 20 meq PO BIDCC [facility] Stop: 08/11/16 08:01 Last Admin: 08/08/16 08:11 Dose: 20 meq Potassium/Phosphorus/Sodium (Neutra Phos) 1 packet PO BID [facility] Last Admin: 08/08/16 08:06 Dose: 1 packet Senna/Docusate Sodium (Senna Plus Tablet) 1 tab PO HS [facility] Last Admin: 08/07/16 21:02 Dose: Not Given Sodium Chloride (Saline Flush) 10 ml IV Q8 [facility] Last Admin: 08/08/16 05:51 Dose: 10 ml Medical - PN: A/P - Time Spent With Patient Total time spent is greater than 50% in coordination of care (as documented) at patient's floor/unit and/or counseling patient: (1) Pancreatitis Status: Acute Current Visit: Yes (2) Ileus Status: Acute Current Visit: Yes (3) Hypocalcemia Status: Acute Current Visit: Yes (4) Vitamin D deficiency Status: Acute Current Visit: Yes (5) HCAP (healthcare-associated pneumonia) Status: Acute Current Visit: Yes (6) Diarrhea Status: Acute Current Visit: Yes (7) Sepsis Status: Acute Current Visit: Yes (8) Abnormal vaginal bleeding Status: Acute Current Visit: Yes - Narrative A/P Narrative: CT chest abdomen and pelvis today Continue IV antibiotics D/c byrd, change lasix to po monitor ORTHOTIC AIDE bleed stopped, h/h stable, follow with ORTHOTIC AIDE as outpatient. IF CT neg, anticipate D/C to snf in AM. Medical - PN: Qual - VTE Deep Vein Thrombosis/Pulmonary Embolism Present on Admission: No
--- NOTE | 2016-08-08 13:41 | Cat Scan Report ---
CLINICAL INFORMATION: Pancreatitis. Elevated white blood cell count. TECHNIQUE: Axial images to the chest, abdomen, pelvis. 80 mL intravenous contrast material injected. Oral contrast material was given. COMPARISON: Previous chest CT scan dated 02/03/2013 and abdominal and pelvic CT scan dated 07/27/2016 FINDINGS: Bilateral lower lobe volume loss and consolidation. Findings are consistent with pneumonia although benign noninfected volume loss is possible. There are small pleural fluid collections. No evidence for empyema. No hilar or mediastinal lymphadenopathy. No axillary or supraclavicular adenopathy. No pericardial fluid. There is atherosclerotic calcification of coronary arteries. No thoracic compression fractures. No rib or sternal lesions. Extensive peripancreatic inflammatory change consistent with pancreatitis. No detectable pancreatic mass. No detectable pancreatic abscess. No gas bubbles. No well-defined pseudocyst. Pancreatic duct is not dilated. There is perihepatic and mild perisplenic fluid. There is small lateral fluid collections bilaterally. There is only a small amount of intraperitoneal pelvic fluid. Negative liver. No focal intrahepatic abnormality. Gallbladder is dense. No calcified gallstones. No dilated bile ducts. Common bile duct is not dilated. No calcified common bile duct stone. Negative spleen. Normal enhancement of splenic and portal veins. No venous thrombosis. Negative adrenal glands. Negative kidneys. No solid or cystic mass. No hydronephrosis. Abdominal aorta negative. No abdominal aortic aneurysm. Uterus is present. There is a calcification within the endometrial canal in the lower uterine segment. No adnexal mass. There are gas bubbles within the urinary bladder. There is no full catheter identified. No lumbar compression fractures. Sacrum and pelvis are negative. No mechanical small bowel obstruction. No detectable colonic abnormality. No intra-abdominal abscess. IMPRESSION: 1. Bilateral lower lobe volume loss. Pneumonia is possible. 2. Small bilateral pleural fluid collections. No evidence for empyema 3. Pancreatitis with extensive peripancreatic inflammatory change. No focal pseudocyst or detectable abscess 4. Gas bubbles within the urinary bladder 5. No intra-abdominal abscess. Interpreted and Authenticated by: Lee Peacock 08/08/16
[2016-08-08] MEDS: FUROSEMIDE 20 MG TABLET PO SCH (16:54)
[2016-08-08] MEDS: SENNOSIDES/DOCUSATE SODIUM 1 TAB TABLET PO SCH (20:59)
[2016-08-08] MEDS: ALBUTEROL SULFATE 2.5 MG/3 ML NEBULIZER NEB PRN (23:36)
[2016-08-09] MEDS: IPRATROPIUM/ALBUTEROL 3 ML AMPUL.NEB NEB SCH ×3 (00:32→12:08)
[2016-08-09] MEDS: 0.9 % SODIUM CHLORIDE 10 ML SYRINGE IV SCH ×2 (00:33→05:44)
[2016-08-09] MEDS: oxyCODONE HCL 5 MG TABLET PO PRN ×2 (00:40→04:43)
[2016-08-09] MEDS: ACETAMINOPHEN 325 MG TABLET PO PRN (04:42)
[2016-08-09] MEDS: PIPERACILLIN SODIUM/TAZOBACTAM 3.375 GM in DEXTROSE 5% IN WATER 50 ML IV SCH (05:15)
[2016-08-09 05:27] LABS: Basophils # (Auto) 0 K/mcL (0.0-0.3); Basophils % (Auto) 0 % (0.0-2.0); Eosinophils # (Auto) 0.2 K/mcL (0.0-0.7); Eosinophils % (Auto) 0.9 % (0.0-7.0); Granulocytes % (Auto) 92.9 % (38.0-78.0); Lymphocytes # (Auto) 0.6 K/mcL (1.5-4.8); Lymphocytes % (Auto) 3.5 % (15.5-49.0); Mean Cell Volume 89.9 fL (80.0-100.0); Mean Corpuscular HGB Conc 32.3 g/dL (31.0-36.0); Monocytes # (Auto) 0.5 K/mcL (0.1-0.9); Monocytes % (Auto) 2.7 % (1.0-9.0); Platelet Count 465 K/mcL (140-440); Red Cell Distribution Width 15.6 % (11.5-14.5)
[2016-08-09 05:56] LABS: ALT/SGPT 32 U/l (0-40); Albumin 2.4 gm/dL (3.2-5.2); Albumin/Globulin Ratio 0.8 (1.0-2.3); Alkaline Phosphatase 111 U/L (39-117); Bilirubin,Direct < 0.2 mg/dL (0.0-0.3); Blood Urea Nitrogen 13 mg/dl (8-23); Gamma Glutamyl Transpeptidase 45 U/L (5-36); Magnesium 2.1 mg/dL (1.6-2.5); Phosphorous 3.3 mg/dL (2.7-4.5); Uric Acid 3.6 mg/dL (2.5-8.0)
[2016-08-09] MEDS: POTASSIUM CHLORIDE 20 MEQ PACKET PO SCH (07:35)
[2016-08-09] MEDS: PANTOPRAZOLE 40 MG TABLET PO SCH (07:36)
[2016-08-09] MEDS: FUROSEMIDE 20 MG TABLET PO SCH (07:37)
[2016-08-09] MEDS: DOCUSATE SODIUM 100 MG CAPSULE PO SCH (07:41)
[2016-08-09] MEDS: INSULIN LISPRO 1 UNIT/0.01 ML UNIT SQ SCH ×2 (07:41→11:45)
[2016-08-09] MEDS: NEUTRA PHOS 1 PACKET PO SCH (08:37)
[2016-08-09] MEDS: MULTIVIT,THER IRON,CA,FA & MIN 1 TABLET PO SCH (08:38)
[2016-08-09] MEDS: HEPARIN 5,000 UNIT/ML VIAL SQ SCH (08:38)
[2016-08-09] MEDS: CHLORHEXIDINE GLUCONATE 1 ML ORAL.SOL SWABMOUTH SCH (08:38)
[2016-08-09] MEDS: VANCOMYCIN 1,000 MG in 0.9 % SODIUM CHLORIDE 250 ML IV SCH (09:16)
[2016-08-09] MEDS: BUDESONIDE 0.5 MG/2 ML AMPUL.NEB NEB SCH (09:52)
--- NOTE | 2016-08-09 10:28 | Discharge Summary ---
Medical - DS: Prov Patient information: Note initiated : 08/09/16 at 10:18 am Service Date, if different from initiated Date: [] Patient: Olinda Farris 75 y/o F admitted on 07/27/16 for N/V, Severe Pancreatitis. Chief Complaint: [] Date of admission: 07/27/16 14:35 Discharge date: 08/09/16 Primary care physician: [f_Reg Prim Care Provider] Admitting clinician: Wu Napoles Consults: 08/07/16 14:46 Consult to Physician [CONS] Routine Comment: Post menstrual bleeding. Consulting Provider: Arnel Whitlock Reason For Exam: Physician to Consult Discharging clinician: Niranjan Almodovar Medical - DS: Meds - Discharge Medications Prescriptions: Levofloxacin 750 mg PO DAILY #5 tablet Losartan Potassium [Cozaar] 100 mg PO DAILY #30 tablet Pravastatin [Pravachol] 40 mg PO HS #30 tablet Sennosides/Docusate Sodium [Senna Plus Tablet] 1 tab PO HS #30 tablet amLODIPine [Norvasc] 5 mg PO DAILY #30 tablet oxyCODONE HCL [Roxicodone] 5 mg PO Q4HP PRN #40 tablet PRN Reason: Pain Active and Home Medications: Home Medications Fluticasone Furoate [Arnuity Ellipta] 1 puff IH DAILY 07/27/16 [History Confirmed 07/27/16 Last Taken Unknown] Losartan/Hydrochlorothiazide [Losartan-Hctz 100-12.5 mg Tab] 1 each PO DAILY 09/09 [History Confirmed 07/27/16 Last Taken Unknown] Rosuvastatin Calcium [Crestor] 2.5 mg PO DAILY 07/27/16 [History Confirmed 07/27 Last Taken Unknown] Tiotropium Br/Olodaterol HCl [Stiolto Respimat Inhal [place]] 4 gm IH DAILY [History Confirmed 07/27/16 Last Taken Unknown] metFORMIN [Glucophage] 500 mg PO DAILY 07/27/16 [History Confirmed 07/27/16 Last Taken Unknown] Medical - DS: Hosp Hospital course: Mr. Farris is a 75 year old female who presented to the hospital with abdominal pain, nausea and vomiting, admitted to the hospital for management of acute pancreatitis. Acute pancreatitis- CT on admission showed pancreatitis, She had mild pancreatitis on admission, however at 48 Hrs her pancreatitis progressed to severe pancreatitis based on airam score. The patient was treated conservatively with IV fluids, Pain medications, and bowel rest. The patient responded to treatment, albielt slowly. The etiology of pancreatitis is not very clear, She is non alcoholic, neither were there any gall stones. Lipid profile showed that TG was not high, and she did not have hypercalcemia. Its likely that this is medication induced pancreatits. I have stopped her HCTZ as well as rosuvastatin which could likely cause pancreatitis and start her on amlodipine and pravastatin (some studies show lower incidence of pancreatitis). If she should have abdominal pain and worsening pancreatitis again, we will have to look at metformin/ losarta/ autoimmune pancreatitis as a possible etiology of her pancreatitis. On discharge the patient was tolerating po diet well, she still has some intermittent abdominal pain, will send her on some oxycodone. HCAP PNA- Hospital stay was complicated with PNA, treated with vanco and zosyn, for 7 days. The patient still needs 1-2 L oxygen on discharge, at home she uses oxygen on a as needed basis for her asthma/ copd( follows with Dr Dias). The patient will take additional 5 days of levofloxacin TYRELL- Secondary to DYE Vs SIRS pancreatitis, creat was upto 2.2, improved with IV fluids, USG shows medical renal disease, on discharge creat is back to baseline 0.8-0.9 Leucocytosis- The patient has had persistant leucocytosis during the hospital stay, Her WBC count went as high as 26, then dropped to 12.5, and then went up again to 18-19, and then came down and up. On discharge he WBC count is 17K, Given her risking wbc CT chest abdo pelvis was repeated yesterday, which was negative for acute abscess or any other source of infection. She has pna which is being treated with broad spectrum ABX, Clinically she is getting better. I would suggest that the patient have a repeat CBC done in 1 week to evaluate where he stands with her leucocytosis. Cdiff was negative. Post menopausal bleed- The patient had one episode of significant post menopausal bleed while in the hospital. She was evaluated by Dr Whitlock from [facility] [place] and he advised DnC once patient is stable as outpatient. The patient will have to follow up with him as outpatient for further eval and DnC. Pelvic USG done showed irregular endometrium in the lower part of the uterus. The rest of the patients stay was uneventful. Given her prolonged hospital stay , she was very weak and unable take care of her self. She will need Ongoing OT? PT to help her regain her strength. She will be discharged to a SNF for further therapy. For daily hospital course see below. 07/27- patient admitted with acute pancreatitis. Unclear etiology.History of alcoholism. CT no evidence of CBD dilation or cholelithiasis. patient olmesartan and statin which may be implicated in pancreatitis however has been on it for a while. home meds on hold. initial CRP 2.2. Lipase 4800. White count 18,000. Significant abdominal pain requiring IV opioids. Continue NPO/ antiemetics crystalloids. Admit to medical floor. [place] score 12 mandating inpatient hospitalization. Low Airam score/CT severity index for acute pancreatitis. Started on Primaxin. await Procalcitonin 07/28- worsening leukocytosis at 26,000 with bandemia. CRP is 17.8. Continue daily serial trending. Enteral tube feeding to start in 24 hours. Discussed with patient and family. Agreeable for [place]. continue crystalloids bolus and maintained 125-150 cc an hour due to extensive third spacing and pancreatic Inflammation. repeat CT scan 72 hours for interval change. patient now needing 3 L oxygen. High-risk development of ARDS . Underlying severe pancreatitis. dC Primaxin in light of normal pro-calcitonin levels. Continue close monitoring. Persistent sirs with tachycardia and tachypnea. continue electrolyte replacement including magnesium and phosphorus. also discussed possible transfer to tertiary Center if clinical deterioration noted. family is appreciative of care. 08/01/16: clinically, the patient has been fairly stable for the last day or so. She continues to have some intermittent delirium but overall pain appears to be better controlled. She also appears to be tolerating tube feedings so far, without significant increase in pain. tube feed-Residuals are acceptable. She did have 1 small bowel movement, but not much activity since then. -his evening, she has been complaining of increased work of breathing. She does have more wheezing and rales on exam. review of her home medications to show that she is generally on a long-acting bronchodilator plus tiotropium plus a steroid inhaler. -the patient had significant hypocalcemia on admission, but that has been corrected. CRP and white blood cell count have been improving. Acute renal dysfunction also appears to be improving. -Follow up CT scan did show worsening of her pancreatitis, but no obvious cyst formation. -otherwise,she denies significant pain at this time, although staff notes that she tends to ask for pain medications every 2-4 hours. Some of her pain is more in her back then in her abdomen. Reliability of her history is somewhat suspect, but she denies fever or chills, sore throat. She is having some coughing, and some wheezing, and says she has some intermittent shortness of breath. She denies significant abdominal pain at this time, and denies nausea or vomiting. However during her interview, she is picking at the oximeter on her finger, and reports she cannot quite figure out why she can't get it off. 08/02/16: Today, the patient is a little more alert. She is required a little bit less pain medicine overnight than the day before. she is having less anterior abdominal and left upper quadrant pain now, but continues to complain of discomfort in her bilateral sides. Nurses were able to get her up to a chair for quite some time today, which she tolerated reasonably well. -She is tolerating her tube feeds quite well, and residuals have been 0. Amylase and lipase are back to normal on today's labs. -chest x-ray yesterday was consistent with a left basilar pneumonia, also consistent with her increased cough and shortness of breath. She has been working harder today on incentive spirometry. Zosyn IV was started last night, and nebulized bronchodilatorswere orderedon a scheduled basis as well as nebulized Pulmicort. otherwise, she denies fever or chills, chest pain or palpitations. Her cough is mostly nonproductive. She denies nausea or vomiting or diarrhea. Byrd catheter remains in place. 08/03/16:the patient continues to be more alert today and has been sitting up in a chair for 2 hours. She does continue to complain of pain however, mainly in her sides and flank areas. she denies fever or chills, significant cough or shortness of breath or chest pain. She denies nausea or vomiting. She did have a small stool again today. tube feed Residuals continued to be around 0 She did tolerate a clear liquid diet. A very low-grade fever was noted this morning and her white blood cell count has bumped up again. she does not report any other obvious sources of infection. 08/04/16: today, the patient says she is definitely feeling better. She is having less abdominal pain, and is feeling more alert. She did tolerate a full liquid diet for breakfast. Unfortunately we did not have much success with trying to diurese her yesterday. er white blood cell count remains elevated at 19,000, with an absolute granulocyte count of 18,000, although this is slightly improved compared to yesterday. she denies subjective fever or chills significant cough, chest pain, increase over her baseline shortness of breath, nausea or vomiting, diarrhea or constipation. She continues with both the feeding tube and a Byrd catheter. 08/05/16:This morning, the patient states she continues to feel better every day. he was able to tolerate eggs and toast last night. She feels able to advance her diet today. She denies any increase in abdominal pain. Staff notes that her feeding tube is clogged this morning. She is still requiring heavy assistance to get in and out of bed, but has been able to sit up for hours at a time. -she denies subjective fever or chills, chest pain or shortness of breath. She says she has only minimal cough She denies abdominal pain, nausea or vomiting, diarrhea or constipation. She does still have a Byrd in place. 08/06 Pt seen examined, no acute overnight events, slept well, she had 2 BM since last night, large watery. Somewhat incontinent. She denies any abodminal pain, feels weak, but overall is improving. She is tolerating PO diet well. her labs are significant for wbc count which is worsening slightly. She remains afebrile. Plan to get CXR chest and abdomen today, check cdiff today, if neg consider CT chest abdo and pelvis to look for source of persistant elevated wbc. She remains and vancomycin and zosyn for hcap pneumonia. 08/07 Pt seen examined, doing well this AM, no acute complaints, pain in abdomen is better, but the patient is still tired and fatigued. Her WBC count is better today. She had one BM yesterday, and still is on lasix for diuresis. She continues to be on IV antibiotics for pneumonia, will need total of 7 days of ABX While changing bed sheets and moving the patient the nurse noted that the patient has some bleeding in the vagina. She looked and there is no blood in stools, but from vagina. small clot noted. The patient is not on any medication for such, is post menopausal for 20 yrs, no h/o post menopausal bleed, denies any family h/o uterine c ancer Ct done did show enlarged uterus and possible fibroid. Discussed with the patient regarding need for further workup and concern for maligancy. Plan to get Transabdominal/ transvaginal USG today. consider [employer] consult inpatient vs outpatient depending on the results. The patient is tolerating po diet ok, will switch her pain meds to oral, and xfer her to med surg status. 08/08 Pt seen examined, doing better this AM, no acute overnight events, no [employer] bleed this AM, Discussed case with [employer] research consultant, who advised DnC done preferably as outpatient but c an do it inpatient if the patient bleeds moderate to heavy or if there is significant drop in h/h Patient was lying in bed comfortably this AM, tolerating po well WBC count went up again today, will get CT chest abdo and pelvis to r/o any pathology continue antibiotics for HCAP pna. D/c byrd today, and change lasix to 20mg bid for gentle diuresis. Wean off oxygen as tolerated, Pt has h/o COPD and has ome oxygen on as needed basis, I feel that she may need to continue with oxygen on discharge. Family at bedside updated on the plan of care. Discharge diagnosis: Pancreatitis, Post Menopausal Bleed, Health Care Pneumonia. - Time Spent with Patient Total time spent providing and/or coordinating discharge services: Greater than 30 minutes Medical - DS: Exam - Constitutional Vitals: Vital Signs Temp Pulse Pulse Resp BP BP BP 08/09/16 09:52 91 H 10 L 08/09/16 07:23 97.6 F 16 151/88 08/09/16 07:22 08/09/16 07:09 93 H 12 08/09/16 07:08 08/09/16 07:06 90 10 L 08/09/16 04:00 98.4 F 90 16 150/74 08/08/16 23:16 99.6 F 96 H 18 149/80 08/08/16 20:00 99.3 F 95 H 18 159/74 08/08/16 18:35 92 H 18 08/08/16 18:32 92 H 18 08/08/16 16:00 98.5 F 90 18 143/83 08/08/16 13:43 92 H 18 08/08/16 12:00 98.2 F 85 18 149/95 Pulse Ox 08/09/16 09:52 08/09/16 07:23 97 08/09/16 07:22 97 08/09/16 07:09 08/09/16 07:08 96 08/09/16 07:06 96 08/09/16 04:00 93 08/08/16 23:16 94 08/08/16 20:00 94 08/08/16 18:35 91 08/08/16 18:32 08/08/16 16:00 91 08/08/16 13:43 08/08/16 12:00 95 Intake and Output 08/08/16 08/09/16 08/09/16 21:59 05:59 13:59 Intake Total 970 / 970 900 / 900 360 / 360 Output Total 400 / 400 950 / 950 Balance 570 / 570 -50 / -50 360 / 360 Intake: IV 50 / 50 300 / 300 Dextrose 5% in Water 50 50 / 50 50 / 50 ml @ 100 mls/hr IV Q6 ROLAN with Zosyn 3.375 gm Rx#: [id number] Sodium Chloride 0.9% 250 250 / 250 ml @ 250 mls/hr IV Q12H ROLAN with Vancomycin 1,000 mg Rx#:[id number] Oral 920 / 920 600 / 600 360 / 360 Output: Void Amount 400 / 400 950 / 950 Other: Meal Dinner Breakfast Percent of Meal Consumed 25% 50% Feeding Ability Independent # Bowel Movements 1 1 Weight 241 lb 8 oz Additional comments: Constitutional; Afebrile, cooperative, alert, not in distress. Eyes- No icterus, Pupils equal, reactive, No periorbital swelling Ears- Ext ear normal, hearing normal to conversation. Neck- Midline trachea, supple Respiratory system: Air Entry equal on both sides, No crackles or wheezing, no rhonchi. CVS- Rate rhythm regular, S1,S2 heard, no gallop, no rub. Abdomen- Soft nontender abdomen, no organomegaly, no tenderness, no guarding or rigidity, [employer]- AOOx3, moving all extremities, no focal deficit noted. Medical - DS: Data Labs on day of discharge: Labs from last 24 hours 08/09/16 08/09/16 03:58 03:58 WBC 17.0 H RBC 3.30 L Hgb 9.6 L Hct 29.7 L MCV 89.9 MCH 29.0 MCHC 32.3 RDW 15.6 H Plt Count 465 H MPV 8.4 Gran % 92.9 H Lymph % (Auto) 3.5 L [place] % (Auto) 2.7 Eos % (Auto) 0.9 Baso % (Auto) 0 Gran # 15.8 H Lymph # 0.6 L [place] # 0.5 Eos # 0.2 Baso # 0 Differential Comment Sodium 136 Potassium 3.5 Chloride 93 L Carbon Dioxide 30 Anion Gap 13.0 BUN 13 Creatinine 0.8 GFR Calculation 73 Glucose 109 H Uric Acid 3.6 Calcium 8.0 L Phosphorus 3.3 Magnesium 2.1 Total Bilirubin 0.4 Direct Bilirubin < 0.2 GGT 45 H AST 36 ALT 32 Alkaline Phosphatase 111 Lactate Dehydrogenase 286 H Total Protein 5.5 L Albumin 2.4 L Globulin 3.1 Albumin/Globulin Ratio 0.8 L Triglycerides 133 Medical - DS: A/P - Patient/Caregiver Discharge Instructions Activity: as per physical therapy, increase activity as tolerated Diet: Consistent Carbohydrate Additional Instructions: Follow up with Dr Kamlesh Seals in 10-14 days , If bleeding per vagina were to worsen, I would advise earlier follow up Levofloxacin for 5 days Follow up with PCP in 14 days go to the ER if worsening condition, worsening abdominal pain suspicious of pancreatitis, or new concern. consider checking CBC in 7 days. Continue OT/ PT / ST at the rehab facility. - Problem Maintenance (1) Pancreatitis Status: Acute (2) Vitamin D deficiency Status: Acute (3) HCAP (healthcare-associated pneumonia) Status: Acute (4) Abnormal vaginal bleeding Status: Acute - Follow up Plan Follow up with: Rai Calvo MD [Primary Care Provider] - Arnel Whitlock MD [Physician] - Disposition: Xfer SNF Prognosis: Fair Rehab Potential: Fair I certify that the patient requires SNF services: Yes Overall status at discharge: patient is progressing back to baseline Medical - DS: Qual - VTE Deep Vein Thrombosis/Pulmonary Embolism Present on Admission: No
== END 2016-08-09 13:20 | DRG 438 ==
LOC: ED 10:25 → SUATTDRO 14:35 → MEDSUR 14:35 → ICU 07-29 08:55 → MEDSUR 08-07 14:35
PROVIDERS: ADMIT Internal Medicine; ATTEND Internal Medicine